=== PATIENT | male | born 1955 | race Two or more races ===

== ENCOUNTER 2016-07-16 17:24 | Inpatient (IN) | payer MEDICAID ==
[~2016-07-16] VITALS: Ht 177.8 cm; Wt 129.3 kg
[~2016-07-16 17:24] MED LIST: ASPI-247 PO; BACL10TA PO; BENA10TA3 PO; CAR3125T PO; CHOL20009 PO; GABA-521 PO; GLIP-115 PO; ISOS60TA PO; METF-489 PO; NITR0.4S31 SL; NOR10T PO; OMEP20TA85 PO; OYST500T28 PO; PRAS10TA6 PO; PRAVASTATIN PO; SPIR25TA89 PO; lantus SC
[2016-07-16 18:07] LABS: Basophils # (auto) 0 uL; Basophils % (auto) 0.3 % (0.0-2.0); Eosinophils # (auto) 0 uL; Eosinophils % (auto) 0.5 % (0.0-7.0); Hematocrit 42.5 % (41.0-53.0); Hemoglobin 14.2 g/dL (13.5-17.5); Lymphocytes # (auto) 2.2 uL; Lymphocytes % (auto) 23.7 % (10.0-50.0); Mean Corpuscular Hemoglobin 29.1 pg (28.0-32.0); Mean Corpuscular Hgb Conc. 33.4 g/dL (32.0-36.0); Mean Corpuscular Volume 87.3 fL (80.0-100.0); Mean Platelet Volume 6.7 fL (7.4-10.4); Monocytes # (auto) 0.5 uL; Monocytes % (auto) 5.8 % (0.0-12.0); Neutrophils # (auto) 6.5 uL; Neutrophils % (auto) 69.7 % (37.0-80.0); Platelet Count (auto) 379 10^3/uL (140-450); Red Cell Distribution Width 15.6 % (11.6-16.0); White Blood Cell 9.3 10^3/uL (4.4-10.8)
[2016-07-16 18:23] LABS: Albumin 3.5 g/dL (3.4-5.0); Anion Gap 12 (5-15); BUN/Creatinine Ratio 14.8; Blood Urea Nitrogen 13 mg/dL (7-18); Calcium 8.9 mg/dL (8.5-10.1); Carbon Dioxide 21 mmol/L (21-32); Chloride 103 mmol/L (98-107); GFR African American 112 mL/min; GFR Non-African American 93 mL/min; Glucose 251 mg/dL (74-106); Magnesium 1.9 mg/dL (1.6-2.6); Sodium 136 mmol/L (136-145)
[2016-07-16 18:53] LABS: Alkaline Phosphatase 66 U/L (45-117); Aspartate Aminotransferase 6 U/L (15-37); Bilirubin, Total 0.6 mg/dL (0.2-1.0); Total Protein 8.1 g/dL (6.4-8.2)
[2016-07-16] MEDS ORDERED: ONDANSETRON HCL 4 MG/2 ML VIAL IV ONE (20:00)
[2016-07-16] MEDS ORDERED: HYDROmorphone HCL 2 MG/ML VL IV ONE ×2 (20:00→21:30)
[2016-07-16 20:16] LABS: INR 1.07 (0.9-1.15)
[2016-07-16] MEDS ORDERED: FUROSEMIDE 20 MG/2 ML VIAL IV ONE (22:00)
[2016-07-16 22:12] LABS: BUN/Creatinine Ratio 18.6; Calcium 8.6 mg/dL (8.5-10.1); Potassium 3.9 mmol/L (3.5-5.1)
[2016-07-16 22:43] LABS: B-Type Natriuretic Peptide 39.65 pg/mL (0-100); Temperature: 22.7 C (20.0-25.0)
[2016-07-17] VITALS (7 sets, daily range): BP systolic 102–128; BP diastolic 66–74
[2016-07-17] MEDS ORDERED: MORPHINE SULF INJ 2 MG/ML SYRINGE 1ML IV PRN ×2 (00:15→13:00)
[2016-07-17] MEDS ORDERED: ACETAMINOPHEN 325 MG TAB PO PRN (00:15)
[2016-07-17] MEDS ORDERED: DEXTROSE (50%) 50ML SYRG IV PRN (00:15)
[2016-07-17] MEDS ORDERED: NITROGLYCERIN 0.4 MG SL TAB SL PRN (00:15)
[2016-07-17] MEDS ORDERED: ONDANSETRON HCL 4 MG/2 ML VIAL IV PRN (00:15)
[2016-07-17] MEDS ORDERED: IOHEXOL 350 MG/ML 100ML IJ ONE (00:19)
[2016-07-17] MEDS: HYDROcodone-ACET 5/325MG TAB PO PRN ×3 (01:42→12:39)
[2016-07-17] MEDS ORDERED: ENOXAPARIN SOD 150 MG/1 ML SYRINGE SC SCH (03:00)
[2016-07-17] MEDS: GABAPENTIN 300 MG CAP PO SCH ×3 (05:44→21:27)
[2016-07-17] MEDS: ACCU-CHEK COMFORT CURVE STRIP VI SCH ×3 (05:44→18:00)
[2016-07-17] MEDS: InsuLIN REG 1unit/0.01ml Soln (100units/ml) SC SCH ×3 (05:45→17:43)
[2016-07-17 08:42] LABS: Urine Color Yellow (Yellow)
[2016-07-17 08:43] LABS: Urine Bilirubin Negative (Negative); Urine Blood Negative /uL (Negative); Urine Glucose 4+ mg/dL (Normal); Urine Ketone Negative (Negative); Urine Nitrite Negative (Negative); Urine Urobilinogen Normal (Negative); Urine pH 5.5 (5.0-8.0)
[2016-07-17 08:53] LABS: Urine RBC 0-1 /hpf (0 - 3); Urine Squamous Epithelial Cell FEW /hpf (<5)
[2016-07-17] MEDS ORDERED: EFFIENT 10 MG PO SCH (10:00)
[2016-07-17] MEDS ORDERED: ENOXAPARIN SOD 40 MG/0.4 ML SYRINGE SC SCH (10:00)
[2016-07-17] MEDS ORDERED: FAMOTIDINE 20 MG TAB PO SCH (10:00)
[2016-07-17] MEDS ORDERED: ASPirin 81 mg TAB PO SCH (10:00)
[2016-07-17] MEDS: SPIRONOLACTONE 25 MG TAB PO SCH (10:25)
[2016-07-17] MEDS: CARVEDILOL 3.125 MG TAB PO SCH ×2 (10:26→21:31)
[2016-07-17] MEDS: PRASUGREL HCL 10 MG TAB PO SCH (10:27)
[2016-07-17] MEDS: ISOSORBIDE MONONITRATE 60 MG TAB PO SCH (10:27)
[2016-07-17] MEDS: BENAZEPRIL HCL 10 MG TAB PO SCH (10:29)
[2016-07-17 12:31] LABS: Basophils # (auto) 0 uL; Basophils % (auto) 0.3 % (0.0-2.0); Eosinophils # (auto) 0.1 uL; Hematocrit 38.7 % (41.0-53.0); Lymphocytes # (auto) 2.2 uL; Lymphocytes % (auto) 29.9 % (10.0-50.0); Mean Corpuscular Hemoglobin 29.3 pg (28.0-32.0); Mean Corpuscular Hgb Conc. 33.7 g/dL (32.0-36.0); Mean Platelet Volume 6.9 fL (7.4-10.4); Monocytes # (auto) 0.7 uL; Monocytes % (auto) 8.9 % (0.0-12.0); Neutrophils # (auto) 4.4 uL; Neutrophils % (auto) 59.9 % (37.0-80.0); Platelet Count (auto) 329 10^3/uL (140-450); Red Cell Distribution Width 15.6 % (11.6-16.0); White Blood Cell 7.3 10^3/uL (4.4-10.8)
[2016-07-17 12:59] LABS: BUN/Creatinine Ratio 19.4; Calcium 8.4 mg/dL (8.5-10.1); Phosphorus 2.8 mg/dL (2.5-4.90); Potassium 3.8 mmol/L (3.5-5.1)
[2016-07-17] MEDS: HYDROmorphone HCL 2 MG/ML VL IV PRN ×2 (14:41→20:23)
[2016-07-17] MEDS: PRAVASTATIN SODIUM 20 MG TAB PO SCH (21:32)
[2016-07-17] MEDS: DABIGATRAN 75 MG CAP PO SCH (21:37)
[2016-07-17] MEDS ORDERED: INSULIN DETEMIR(LEVEMIR) 1unit/0.01ml Soln (100units/ml) SC SCH (22:00)
[2016-07-18] MEDS: ACCU-CHEK COMFORT CURVE STRIP VI SCH ×4 (00:05→18:01)
[2016-07-18] MEDS: HYDROcodone-ACET 5/325MG TAB PO PRN (00:17)
[2016-07-18] MEDS: InsuLIN REG 1unit/0.01ml Soln (100units/ml) SC SCH ×4 (00:27→18:02)
[2016-07-18] MEDS: HYDROmorphone HCL 2 MG/ML VL IV PRN ×5 (03:36→22:15)
[2016-07-18] MEDS: GABAPENTIN 300 MG CAP PO SCH ×3 (05:38→22:25)
[2016-07-18 05:45] LABS: Basophils # (auto) 0 uL; Basophils % (auto) 0.3 % (0.0-2.0); Eosinophils # (auto) 0.1 uL; Eosinophils % (auto) 1.6 % (0.0-7.0); Hematocrit 38.2 % (41.0-53.0); Hemoglobin 12.7 g/dL (13.5-17.5); Lymphocytes # (auto) 2.5 uL; Lymphocytes % (auto) 32.8 % (10.0-50.0); Mean Corpuscular Hemoglobin 29.1 pg (28.0-32.0); Mean Corpuscular Hgb Conc. 33.4 g/dL (32.0-36.0); Mean Corpuscular Volume 87.2 fL (80.0-100.0); Mean Platelet Volume 6.8 fL (7.4-10.4); Monocytes # (auto) 0.8 uL; Monocytes % (auto) 10.2 % (0.0-12.0); Neutrophils # (auto) 4.2 uL; Neutrophils % (auto) 55.1 % (37.0-80.0); Platelet Count (auto) 332 10^3/uL (140-450); Red Cell Distribution Width 15.3 % (11.6-16.0); White Blood Cell 7.6 10^3/uL (4.4-10.8)
[2016-07-18 05:49] VITALS: BP 101/70
[2016-07-18 06:14] LABS: Albumin 3.1 g/dL (3.4-5.0); BUN/Creatinine Ratio 22.1; Bilirubin, Total 0.6 mg/dL (0.2-1.0); Calcium 8.8 mg/dL (8.5-10.1); Magnesium 1.9 mg/dL (1.6-2.6); Potassium 3.9 mmol/L (3.5-5.1); Total Protein 7.3 g/dL (6.4-8.2)
[2016-07-18 09:00] VITALS: BP 130/91
[2016-07-18] MEDS: BENAZEPRIL HCL 10 MG TAB PO SCH (09:29)
[2016-07-18] MEDS: CARVEDILOL 3.125 MG TAB PO SCH ×2 (09:30→22:25)
[2016-07-18] MEDS: ASPirin-EC 81 mg tab PO SCH (09:30)
[2016-07-18] MEDS: SPIRONOLACTONE 25 MG TAB PO SCH (09:30)
[2016-07-18] MEDS: PRASUGREL HCL 10 MG TAB PO SCH (09:31)
[2016-07-18] MEDS: PANTOPRAZOLE 40 MG TAB PO SCH (09:31)
[2016-07-18] MEDS: ISOSORBIDE MONONITRATE 60 MG TAB PO SCH (09:31)
[2016-07-18] MEDS: DABIGATRAN 75 MG CAP PO SCH ×2 (09:47→22:26)
[2016-07-18 13:00] VITALS: BP 126/68
[2016-07-18 17:00] VITALS: BP 124/59
[2016-07-18 22:00] VITALS: BP 134/81
[2016-07-18 22:03] VITALS: BP 134/81
[2016-07-18] MEDS: PRAVASTATIN SODIUM 20 MG TAB PO SCH (22:25)
[2016-07-18] MEDS: INSULIN DETEMIR(LEVEMIR) 1unit/0.01ml Soln (100units/ml) SC SCH (22:26)
[2016-07-19] MEDS: ACCU-CHEK COMFORT CURVE STRIP VI SCH ×4 (00:15→18:12)
[2016-07-19] MEDS: InsuLIN REG 1unit/0.01ml Soln (100units/ml) SC SCH ×4 (00:17→18:12)
[2016-07-19] MEDS: HYDROmorphone HCL 2 MG/ML VL IV PRN ×6 (02:05→22:50)
[2016-07-19] MEDS: HYDROcodone-ACET 5/325MG TAB PO PRN (02:26)
[2016-07-19 05:00] VITALS: BP 111/68
[2016-07-19] MEDS: GABAPENTIN 300 MG CAP PO SCH ×3 (06:13→22:11)
[2016-07-19] MEDS: SPIRONOLACTONE 25 MG TAB PO SCH (08:58)
[2016-07-19] MEDS: CARVEDILOL 3.125 MG TAB PO SCH ×2 (08:58→22:17)
[2016-07-19] MEDS: ISOSORBIDE MONONITRATE 60 MG TAB PO SCH (08:58)
[2016-07-19] MEDS: ASPirin-EC 81 mg tab PO SCH (08:58)
[2016-07-19] MEDS: BENAZEPRIL HCL 10 MG TAB PO SCH (08:59)
[2016-07-19] MEDS: PANTOPRAZOLE 40 MG TAB PO SCH (09:00)
[2016-07-19] MEDS: DABIGATRAN 75 MG CAP PO SCH ×2 (09:15→22:11)
[2016-07-19] MEDS: PRASUGREL HCL 10 MG TAB PO SCH (09:15)
[2016-07-19 13:06] VITALS: BP 115/68
[2016-07-19 16:58] VITALS: BP 132/80
[2016-07-19 22:00] VITALS: BP 116/72
[2016-07-19] MEDS: DOCUSATE SOD 100 MG CAP PO SCH (22:11)
[2016-07-19] MEDS: PRAVASTATIN SODIUM 20 MG TAB PO SCH (22:11)
[2016-07-19] MEDS: INSULIN DETEMIR(LEVEMIR) 1unit/0.01ml Soln (100units/ml) SC SCH (22:27)
[2016-07-20] MEDS: ACCU-CHEK COMFORT CURVE STRIP VI SCH ×5 (00:06→23:40)
[2016-07-20] MEDS: InsuLIN REG 1unit/0.01ml Soln (100units/ml) SC SCH ×5 (00:15→23:58)
[2016-07-20] MEDS: HYDROmorphone HCL 2 MG/ML VL IV PRN ×6 (02:19→21:06)
[2016-07-20 05:10] VITALS: BP 117/69
[2016-07-20] MEDS: GABAPENTIN 300 MG CAP PO SCH ×3 (06:19→22:19)
[2016-07-20 09:00] VITALS: BP 142/69
[2016-07-20] MEDS: ISOSORBIDE MONONITRATE 60 MG TAB PO SCH (10:01)
[2016-07-20] MEDS: SPIRONOLACTONE 25 MG TAB PO SCH (10:01)
[2016-07-20] MEDS: CARVEDILOL 3.125 MG TAB PO SCH ×2 (10:02→22:18)
[2016-07-20] MEDS: DOCUSATE SOD 100 MG CAP PO SCH ×2 (10:02→22:18)
[2016-07-20] MEDS: ASPirin-EC 81 mg tab PO SCH (10:02)
[2016-07-20] MEDS: PANTOPRAZOLE 40 MG TAB PO SCH (10:03)
[2016-07-20] MEDS: DABIGATRAN 75 MG CAP PO SCH (10:03)
[2016-07-20] MEDS: BENAZEPRIL HCL 10 MG TAB PO SCH (10:04)
[2016-07-20] MEDS: PRASUGREL HCL 10 MG TAB PO SCH (10:11)
[2016-07-20] MEDS: HYDROcodone-ACET 5/325MG TAB PO PRN ×2 (11:58→23:46)
[2016-07-20 12:00] VITALS: BP 102/57
[2016-07-20 17:00] VITALS: BP 114/55
[2016-07-20 20:00] VITALS: BP 127/64
[2016-07-20 22:00] VITALS: BP 127/64
[2016-07-20] MEDS ORDERED: DABIGATRAN 75 MG CAP PO SCH (22:00)
[2016-07-20] MEDS: INSULIN DETEMIR(LEVEMIR) 1unit/0.01ml Soln (100units/ml) SC SCH (22:00)
[2016-07-20] MEDS: PRAVASTATIN SODIUM 20 MG TAB PO SCH (22:19)
[2016-07-21 05:00] VITALS: BP 123/61
[2016-07-21] MEDS: HYDROmorphone HCL 2 MG/ML VL IV PRN ×6 (05:50→22:02)
[2016-07-21] MEDS: ACCU-CHEK COMFORT CURVE STRIP VI SCH ×4 (05:52→23:17)
[2016-07-21] MEDS: InsuLIN REG 1unit/0.01ml Soln (100units/ml) SC SCH ×4 (05:52→23:17)
[2016-07-21] MEDS: GABAPENTIN 300 MG CAP PO SCH ×3 (05:55→22:01)
[2016-07-21 06:07] LABS: Basophils # (auto) 0 uL; Basophils % (auto) 0.4 % (0.0-2.0); Eosinophils # (auto) 0.1 uL; Eosinophils % (auto) 2.2 % (0.0-7.0); Hematocrit 36.8 % (41.0-53.0); Hemoglobin 12.4 g/dL (13.5-17.5); Mean Corpuscular Hemoglobin 29.2 pg (28.0-32.0); Mean Corpuscular Hgb Conc. 33.8 g/dL (32.0-36.0); Mean Corpuscular Volume 86.5 fL (80.0-100.0); Mean Platelet Volume 6.4 fL (7.4-10.4); Monocytes # (auto) 0.7 uL; Monocytes % (auto) 10.4 % (0.0-12.0); Neutrophils # (auto) 3.8 uL; Platelet Count (auto) 380 10^3/uL (140-450); Red Cell Distribution Width 15.4 % (11.6-16.0); White Blood Cell 6.6 10^3/uL (4.4-10.8)
[2016-07-21 06:31] LABS: Albumin 3.1 g/dL (3.4-5.0); BUN/Creatinine Ratio 12.3; Calcium 8.5 mg/dL (8.5-10.1); Potassium 3.6 mmol/L (3.5-5.1)
[2016-07-21 06:34] LABS: Bilirubin, Total 0.5 mg/dL (0.2-1.0); Total Protein 7.3 g/dL (6.4-8.2)
[2016-07-21 09:00] VITALS: BP 127/75
[2016-07-21] MEDS: DOCUSATE SOD 100 MG CAP PO SCH ×2 (09:27→22:01)
[2016-07-21] MEDS: ASPirin-EC 81 mg tab PO SCH (09:27)
[2016-07-21] MEDS: PANTOPRAZOLE 40 MG TAB PO SCH (09:28)
[2016-07-21] MEDS: SPIRONOLACTONE 25 MG TAB PO SCH (09:28)
[2016-07-21] MEDS: ISOSORBIDE MONONITRATE 60 MG TAB PO SCH (09:29)
[2016-07-21] MEDS: CARVEDILOL 3.125 MG TAB PO SCH ×2 (09:29→22:01)
[2016-07-21] MEDS: BENAZEPRIL HCL 10 MG TAB PO SCH (09:30)
[2016-07-21] MEDS ORDERED: PRASUGREL HCL 10 MG TAB PO SCH (10:00)
[2016-07-21 13:00] VITALS: BP 134/65
[2016-07-21] MEDS ORDERED: RIVAROXABAN 15 MG TAB PO ONE ×2 (14:30→22:00)
[2016-07-21 17:30] VITALS: BP 99/41
[2016-07-21] MEDS: glipiZIDE 5 MG TAB PO SCH (18:05)
[2016-07-21 22:00] VITALS: BP_SYST 109; BP_SYST 140; BP_DIAS 56; BP_DIAS 75
[2016-07-21] MEDS ORDERED: PATIENTS OWN MEDICATION (XARELTO 15 MG) PO SCH (22:00)
[2016-07-21] MEDS: RIVAROXABAN 15 MG TAB PO SCH (22:02)
[2016-07-21] MEDS: PRAVASTATIN SODIUM 20 MG TAB PO SCH (22:02)
[2016-07-21] MEDS: INSULIN DETEMIR(LEVEMIR) 1unit/0.01ml Soln (100units/ml) SC SCH (22:14)
[2016-07-22] MEDS: HYDROmorphone HCL 2 MG/ML VL IV PRN ×6 (04:18→21:36)
[2016-07-22 05:00] VITALS: BP 102/61
[2016-07-22] MEDS: InsuLIN REG 1unit/0.01ml Soln (100units/ml) SC SCH ×4 (06:00→23:04)
[2016-07-22] MEDS: GABAPENTIN 300 MG CAP PO SCH ×3 (06:10→21:35)
[2016-07-22] MEDS: ACCU-CHEK COMFORT CURVE STRIP VI SCH ×4 (06:11→23:04)
[2016-07-22] MEDS: glipiZIDE 5 MG TAB PO SCH ×2 (06:11→17:56)
[2016-07-22 07:30] VITALS: BP 154/98
[2016-07-22 08:21] VITALS: BP 134/76
[2016-07-22] MEDS: RIVAROXABAN 15 MG TAB PO SCH ×2 (09:03→21:35)
[2016-07-22] MEDS: SPIRONOLACTONE 25 MG TAB PO SCH (09:03)
[2016-07-22] MEDS: CARVEDILOL 3.125 MG TAB PO SCH ×2 (09:04→21:35)
[2016-07-22] MEDS: PANTOPRAZOLE 40 MG TAB PO SCH (09:04)
[2016-07-22] MEDS: ASPirin-EC 81 mg tab PO SCH (09:04)
[2016-07-22] MEDS: BENAZEPRIL HCL 10 MG TAB PO SCH (09:05)
[2016-07-22] MEDS: DOCUSATE SOD 100 MG CAP PO SCH ×2 (09:05→21:34)
[2016-07-22] MEDS: ISOSORBIDE MONONITRATE 60 MG TAB PO SCH (09:05)
[2016-07-22 12:35] VITALS: BP 154/98
[2016-07-22 16:43] VITALS: BP 126/78
[2016-07-22] MEDS: PRAVASTATIN SODIUM 20 MG TAB PO SCH (21:35)
[2016-07-22 22:00] VITALS: BP 118/59
[2016-07-22] MEDS: INSULIN DETEMIR(LEVEMIR) 1unit/0.01ml Soln (100units/ml) SC SCH (22:00)
[2016-07-23] MEDS: HYDROmorphone HCL 2 MG/ML VL IV PRN (04:35)
[2016-07-23 05:00] VITALS: BP 113/66
[2016-07-23] MEDS: ACCU-CHEK COMFORT CURVE STRIP VI SCH (06:00)
[2016-07-23] MEDS: InsuLIN REG 1unit/0.01ml Soln (100units/ml) SC SCH (06:00)
[2016-07-23] MEDS: glipiZIDE 5 MG TAB PO SCH (06:28)
[2016-07-23] MEDS: GABAPENTIN 300 MG CAP PO SCH (06:28)
[2016-07-23 08:37] VITALS: BP 107/73
[2016-07-23 08:55] VITALS: BP 107/73
[2016-07-23] MEDS: PANTOPRAZOLE 40 MG TAB PO SCH (09:45)
[2016-07-23] MEDS: ASPirin-EC 81 mg tab PO SCH (09:45)
[2016-07-23] MEDS: ISOSORBIDE MONONITRATE 60 MG TAB PO SCH (09:45)
[2016-07-23] MEDS: RIVAROXABAN 15 MG TAB PO SCH (09:45)
[2016-07-23] MEDS: DOCUSATE SOD 100 MG CAP PO SCH (09:46)
[2016-07-23] MEDS: SPIRONOLACTONE 25 MG TAB PO SCH (09:46)
[2016-07-23] MEDS: CARVEDILOL 3.125 MG TAB PO SCH (09:46)
[2016-07-23] MEDS: BENAZEPRIL HCL 10 MG TAB PO SCH (09:47)
== END 2016-07-23 10:11 | disposition home or self-care (01) | DRG 134 ==
LOC: EDUNIT# 17:24 → ER 17:26 → TELE 17:27 → TELE-WESTW 07-17 01:25
PROVIDERS: ADMIT Nurse Practitioner; ATTEND Internal Medicine
DX: I26.99 Other pulmonary embolism without acute cor pulmonale (principal); E11.42 Type 2 diabetes mellitus with diabetic polyneuropathy; D68.59 Other primary thrombophilia; I50.9 Heart failure, unspecified; I11.0 Hypertensive heart disease with heart failure; E11.65 Type 2 diabetes mellitus with hyperglycemia; Z68.41 Body mass index [BMI] 40.0-44.9, adult; E66.01 Morbid (severe) obesity due to excess calories; D64.9 Anemia, unspecified; R51 Headache; I25.5 Ischemic cardiomyopathy; F11.20 Opioid dependence, uncomplicated; E27.9 Disorder of adrenal gland, unspecified; R04.0 Epistaxis; M54.9 Dorsalgia, unspecified; G89.29 Other chronic pain; N50.89 Other specified disorders of the male genital organs; M19.90 Unspecified osteoarthritis, unspecified site; I25.10 Atherosclerotic heart disease of native coronary artery without angina pectoris; E78.5 Hyperlipidemia, unspecified; Z95.1 Presence of aortocoronary bypass graft; Z81.1 Family history of alcohol abuse and dependence; Z80.8 Family history of malignant neoplasm of other organs or systems; Z82.49 Family history of ischemic heart disease and other diseases of the circulatory system; I25.2 Old myocardial infarction; Z88.1 Allergy status to other antibiotic agents; Z88.8 Allergy status to other drugs, medicaments and biological substances; Z87.11 Personal history of peptic ulcer disease; Z79.82 Long term (current) use of aspirin; Z79.84 Long term (current) use of oral hypoglycemic drugs; Z79.4 Long term (current) use of insulin; Z79.899 Other long term (current) drug therapy; Z87.891 Personal history of nicotine dependence; Z95.5 Presence of coronary angioplasty implant and graft; Z80.3 Family history of malignant neoplasm of breast; Z83.3 Family history of diabetes mellitus; Z80.0 Family history of malignant neoplasm of digestive organs
CPT/HCPCS: 36415; 70450; 71010; 71275; 72125; 76870; 80048; 80053; 80061; 81001; 82962; 83036; 83735; 83880; 84100; 84443; 84484; 85025; 85379; 85610; 87081; 93005; 93306; 93970; 94761; 96374; 96375; 96376; J1815; J2405

== ENCOUNTER 2016-10-24 10:40 | Inpatient (IN) | payer MEDICAID ==
[~2016-10-24] VITALS: Ht 30.5 cm; Wt 131.7 kg
[2016-10-24 11:24] LABS: Basophils # (auto) 0 uL; Basophils % (auto) 0.2 % (0.0-2.0); Eosinophils # (auto) 0.1 uL; Eosinophils % (auto) 1.3 % (0.0-7.0); Hematocrit 41.3 % (41.0-53.0); Hemoglobin 14.2 g/dL (13.5-17.5); Lymphocytes % (auto) 31.4 % (10.0-50.0); Mean Corpuscular Hemoglobin 29.1 pg (28.0-32.0); Mean Corpuscular Hgb Conc. 34.3 g/dL (32.0-36.0); Monocytes # (auto) 0.5 uL; Monocytes % (auto) 7.2 % (0.0-12.0); Neutrophils # (auto) 3.9 uL; Neutrophils % (auto) 59.9 % (37.0-80.0); Platelet Count (auto) 285 10^3/uL (140-450); Red Cell Distribution Width 15.5 % (11.6-16.0); White Blood Cell 6.5 10^3/uL (4.4-10.8)
[2016-10-24 12:04] LABS: Albumin 3.6 g/dL (3.4-5.0); Alkaline Phosphatase 61 U/L (45-117); Anion Gap 9 (5-15); Aspartate Aminotransferase 15 U/L (15-37); BUN/Creatinine Ratio 14.9; Bilirubin, Total 0.4 mg/dL (0.2-1.0); Blood Urea Nitrogen 13 mg/dL (7-18); Calcium 8.7 mg/dL (8.5-10.1); Carbon Dioxide 22 mmol/L (21-32); Chloride 107 mmol/L (98-107); GFR African American 114 mL/min; GFR Non-African American 94 mL/min; Glucose 267 mg/dL (74-106); Magnesium 1.8 mg/dL (1.6-2.6); Potassium 3.9 mmol/L (3.5-5.1); Sodium 138 mmol/L (136-145); Total Protein 7.9 g/dL (6.4-8.2)
[2016-10-24] MEDS ORDERED: ASPirin 81 mg TAB PO ONE (15:45)
[2016-10-24] MEDS ORDERED: MORPHINE SULF INJ 2 MG/ML SYRINGE 1ML IV ONE (15:45)
[2016-10-24] MEDS ORDERED: ONDANSETRON HCL 4 MG/2 ML VIAL IV ONE (15:45)
[2016-10-24] MEDS ORDERED: DEXTROSE (50%) 50ML SYRG IV PRN (16:15)
[2016-10-24] MEDS ORDERED: PROMETHAZINE HCL 25 MG/ML 1ML IV PRN (16:15)
[2016-10-24] MEDS ORDERED: BACLOFEN 10 MG TAB PO PRN (16:15)
[2016-10-24] MEDS ORDERED: TEMAZEPAM 15 MG CAP PO PRN (16:15)
[2016-10-24] MEDS ORDERED: ACETAMINOPHEN 500 MG TAB PO PRN (16:15)
[2016-10-24] MEDS ORDERED: LORazepam 0.5 MG TAB PO PRN (16:15)
[2016-10-24] MEDS ORDERED: MORPHINE SULF INJ 2 MG/ML SYRINGE 1ML IV PRN (16:15)
[2016-10-24] MEDS ORDERED: NITROGLYCERIN 0.4 MG SL TAB SL PRN (16:15)
[2016-10-24 17:04] LABS: B-Type Natriuretic Peptide 49.92 pg/mL (0-100)
[2016-10-24] MEDS ORDERED: ISOSORBIDE MONONITRATE 60 MG TAB PO ONE (17:15)
[2016-10-24] MEDS ORDERED: PRASUGREL HCL 10 MG TAB PO ONE (17:15)
[2016-10-24] MEDS ORDERED: PANTOPRAZOLE 40 MG TAB PO ONE (17:15)
[2016-10-24] MEDS ORDERED: SPIRONOLACTONE 25 MG TAB PO ONE (17:15)
[2016-10-24 17:18] LABS: Temperature: 24.1 C (20.0-25.0)
[2016-10-24 18:04] LABS: INR 0.96 (0.9-1.15); Partial Thromboplastin Time 24.5 sec (22.64-33.71); Prothrombin Time 10.5 sec (9.37-12.3)
[2016-10-24] MEDS: ACCU-CHEK COMFORT CURVE STRIP VI SCH ×2 (20:05→22:34)
[2016-10-24] MEDS: SODIUM CHLORIDE 0.9% 1,000 ML IV SCH (20:05)
[2016-10-24] MEDS: ENOXAPARIN SOD 40 MG/0.4 ML SYRINGE SC SCH (20:05)
[2016-10-24] MEDS: InsuLIN REG 1unit/0.01ml Soln (100units/ml) SC SCH ×2 (20:05→22:49)
[2016-10-24] MEDS: MORPHINE SULF INJ 2 MG/ML SYRINGE 1ML IV PRN (20:05)
[2016-10-24 21:20] VITALS: BP 110/51
[2016-10-24] MEDS ORDERED: [UNRECOGNIZED DRUG - OTHER] SC SCH (22:00)
[2016-10-24] MEDS: CALCIUM OYSTER PO SCH (22:00)
[2016-10-24] MEDS: CARVEDILOL 3.125 MG TAB PO SCH (22:00)
[2016-10-24] MEDS ORDERED: INSULIN GLARGINE SC SCH (22:00)
[2016-10-24 22:31] VITALS: BP 110/59
[2016-10-24] MEDS: GABAPENTIN 300 MG CAP PO SCH (22:32)
[2016-10-24] MEDS: PRAVASTATIN SODIUM 20 MG TAB PO SCH (22:32)
[2016-10-24] MEDS: HYDROcodone-ACET 10/325MG TAB PO SCH (22:34)
[2016-10-24] MEDS: CHOLECALCIFEROL (VITD3) 1,000 UNIT TAB PO SCH (22:34)
[2016-10-24] MEDS ORDERED: BACL10TA PO (23:15)
[2016-10-24] MEDS ORDERED: CHOL500021 PO (23:17)
[2016-10-24] MEDS ORDERED: CHOL20007 PO (23:18)
[2016-10-24] MEDS ORDERED: GABA-339 PO (23:34)
[2016-10-24] MEDS ORDERED: GLIP-115 PO (23:35)
[2016-10-24] MEDS ORDERED: NOR5T PO (23:37)
[2016-10-24] MEDS ORDERED: OME20T PO (23:39)
[2016-10-24] MEDS ORDERED: INSLANTI SC (23:41)
[2016-10-25] MEDS: MORPHINE SULF INJ 2 MG/ML SYRINGE 1ML IV PRN ×3 (00:21→13:07)
[2016-10-25] MEDS: SODIUM CHLORIDE 0.9% 1,000 ML IV SCH ×2 (02:07→12:07)
[2016-10-25 05:43] VITALS: BP 102/47
[2016-10-25] MEDS: HYDROcodone-ACET 10/325MG TAB PO SCH ×2 (06:21→10:18)
[2016-10-25] MEDS: CHOLECALCIFEROL (VITD3) 1,000 UNIT TAB PO SCH ×3 (06:21→21:26)
[2016-10-25] MEDS: GABAPENTIN 300 MG CAP PO SCH ×2 (06:21→13:07)
[2016-10-25] MEDS: ACCU-CHEK COMFORT CURVE STRIP VI SCH ×4 (06:27→22:02)
[2016-10-25] MEDS: InsuLIN REG 1unit/0.01ml Soln (100units/ml) SC SCH ×4 (06:28→22:04)
[2016-10-25 08:55] VITALS: BP 101/59
[2016-10-25] MEDS ORDERED: glipiZIDE 5 MG TAB PO SCH (10:00)
[2016-10-25] MEDS ORDERED: SPIRONOLACTONE 25 MG TAB PO SCH (10:00)
[2016-10-25] MEDS: ISOSORBIDE MONONITRATE 60 MG TAB PO SCH (10:00)
[2016-10-25] MEDS: CARVEDILOL 3.125 MG TAB PO SCH ×2 (10:00→21:27)
[2016-10-25] MEDS: CALCIUM OYSTER PO SCH (10:00)
[2016-10-25] MEDS: PRASUGREL HCL 10 MG TAB PO SCH (10:15)
[2016-10-25] MEDS: ASPirin 325 MG TAB PO SCH (10:17)
[2016-10-25] MEDS: PANTOPRAZOLE 40 MG TAB PO SCH (10:18)
[2016-10-25 12:44] VITALS: BP 106/59
[2016-10-25] MEDS ORDERED: BENA10TA3 PO (13:18)
[2016-10-25] MEDS ORDERED: IBUP600T27 PO (13:22)
[2016-10-25] MEDS ORDERED: FENO54TA4 PO (13:22)
[2016-10-25] MEDS ORDERED: TAMS0.4C36 PO (13:22)
[2016-10-25] MEDS ORDERED: SITA50TA PO (13:22)
[2016-10-25] MEDS ORDERED: MORP30TA PO (13:22)
[2016-10-25] MEDS ORDERED: LIDO5DIS21 TOP (13:22)
[2016-10-25 16:38] VITALS: BP_SYST 101; BP_SYST 106; BP_DIAS 58; BP_DIAS 70
[2016-10-25] MEDS: TAMSULOSIN HYDROCHLORIDE 0.4 MG CAP PO SCH (17:31)
[2016-10-25] MEDS: metFORMIN HYDROCHLORIDE 500 MG TAB PO SCH (17:33)
[2016-10-25] MEDS: ENOXAPARIN SOD 40 MG/0.4 ML SYRINGE SC SCH (17:34)
[2016-10-25] MEDS ORDERED: HYDROcodone-ACET 10/325MG TAB PO PRN (18:00)
[2016-10-25 20:00] VITALS: BP 102/66
[2016-10-25] MEDS: PRAVASTATIN SODIUM 20 MG TAB PO SCH (21:26)
[2016-10-25] MEDS: CALCIUM W/VIT D (600MG/400IU) TAB PO SCH (21:26)
[2016-10-25] MEDS: GABAPENTIN 400 MG CAP PO SCH (21:26)
[2016-10-25] MEDS: MORPHINE SULF 30 mg ER tab PO SCH (21:27)
[2016-10-25 21:40] VITALS: BP 102/66
[2016-10-25] MEDS: INSULIN DETEMIR(LEVEMIR) 1unit/0.01ml Soln (100units/ml) SC SCH (22:02)
[2016-10-26] MEDS: SODIUM CHLORIDE 0.9% 1,000 ML IV SCH ×3 (00:09→18:07)
[2016-10-26 04:40] VITALS: BP 113/67
[2016-10-26] MEDS: MORPHINE SULF INJ 2 MG/ML SYRINGE 1ML IV PRN ×2 (05:47→13:19)
[2016-10-26] MEDS: ACCU-CHEK COMFORT CURVE STRIP VI SCH ×3 (05:48→17:00)
[2016-10-26] MEDS: CHOLECALCIFEROL (VITD3) 1,000 UNIT TAB PO SCH ×2 (05:48→13:14)
[2016-10-26] MEDS: GABAPENTIN 400 MG CAP PO SCH ×2 (05:48→13:14)
[2016-10-26] MEDS: InsuLIN REG 1unit/0.01ml Soln (100units/ml) SC SCH ×3 (06:21→17:00)
[2016-10-26] MEDS: metFORMIN HYDROCHLORIDE 500 MG TAB PO SCH ×2 (08:00→18:00)
[2016-10-26] MEDS ORDERED: glipiZIDE 5 MG TAB PO SCH (08:00)
[2016-10-26] MEDS ORDERED: ADENOSINE 111 MG in GIVE UN-DILUTED 0 ML IV ONE (08:15)
[2016-10-26 09:00] VITALS: BP 117/77
[2016-10-26] MEDS: CARVEDILOL 3.125 MG TAB PO SCH (10:00)
[2016-10-26] MEDS: ISOSORBIDE MONONITRATE 60 MG TAB PO SCH (10:00)
[2016-10-26] MEDS: ASPirin 325 MG TAB PO SCH (10:00)
[2016-10-26] MEDS: MORPHINE SULF 30 mg ER tab PO SCH (10:32)
[2016-10-26] MEDS: PANTOPRAZOLE 40 MG TAB PO SCH (10:32)
[2016-10-26] MEDS: CALCIUM W/VIT D (600MG/400IU) TAB PO SCH (10:32)
[2016-10-26] MEDS: PRASUGREL HCL 10 MG TAB PO SCH (10:32)
[2016-10-26] MEDS: INSULIN DETEMIR(LEVEMIR) 1unit/0.01ml Soln (100units/ml) SC SCH (10:37)
[2016-10-26 13:00] VITALS: BP 132/79
[2016-10-26 16:29] VITALS: BP 132/79
[2016-10-26 17:00] VITALS: BP 130/64
[2016-10-26] MEDS: ENOXAPARIN SOD 40 MG/0.4 ML SYRINGE SC SCH (17:00)
[2016-10-26] MEDS: TAMSULOSIN HYDROCHLORIDE 0.4 MG CAP PO SCH (18:00)
== END 2016-10-26 18:50 | disposition home or self-care (01) | DRG 198 ==
LOC: ER 10:46 → TELE 10:47 → TELE-WESTW 21:20
PROVIDERS: ADMIT Internal Medicine; ATTEND Internal Medicine
DX: R07.89 Other chest pain (principal); I25.2 Old myocardial infarction; I25.110 Atherosclerotic heart disease of native coronary artery with unstable angina pectoris; I11.0 Hypertensive heart disease with heart failure; I95.9 Hypotension, unspecified; I50.9 Heart failure, unspecified; E11.65 Type 2 diabetes mellitus with hyperglycemia; E66.01 Morbid (severe) obesity due to excess calories; D35.01 Benign neoplasm of right adrenal gland; G47.30 Sleep apnea, unspecified; I49.3 Ventricular premature depolarization; M54.5 Low back pain; G89.29 Other chronic pain; M19.90 Unspecified osteoarthritis, unspecified site; E78.5 Hyperlipidemia, unspecified; Z86.711 Personal history of pulmonary embolism; Z79.4 Long term (current) use of insulin; Z82.49 Family history of ischemic heart disease and other diseases of the circulatory system; Z87.11 Personal history of peptic ulcer disease; Z83.3 Family history of diabetes mellitus; Z87.891 Personal history of nicotine dependence; Z95.1 Presence of aortocoronary bypass graft; Z95.810 Presence of automatic (implantable) cardiac defibrillator; Z80.9 Family history of malignant neoplasm, unspecified; Z81.1 Family history of alcohol abuse and dependence; Z95.5 Presence of coronary angioplasty implant and graft; Z88.1 Allergy status to other antibiotic agents; Z88.8 Allergy status to other drugs, medicaments and biological substances; Z71.89 Other specified counseling
CPT/HCPCS: 36415; 71020; 78452; 80053; 82550; 82962; 83036; 83735; 83880; 84484; 85025; 85379; 85610; 85652; 85730; 93005; 93017; 93971; 96374; 96375; J0153; J1815; J2405

== ENCOUNTER 2017-10-21 09:42 | Inpatient (IN) | payer MEDICAID ==
[~2017-10-21] VITALS: Ht 172.7 cm; Wt 124.7 kg
[~2017-10-21 09:42] MED LIST changes: +AMI200T PO; -ASPI-247 PO; +ASPI-378 PO; +ATOR80TA PO; -BACL10TA PO; -BENA10TA3 PO; +CAR125T PO; -CAR3125T PO; -CHOL20009 PO; +CHOL500021 PO; +FENO54TA4 PO; +GABA-339 PO; -GABA-521 PO; +HYDR-4683 PO; +INSLANTI SC; +LIDO5DIS21 TOP; +MORP30TA PO; -NOR10T PO; +OME20T PO; -OMEP20TA85 PO; -PRAVASTATIN PO; +SITA50TA PO; +SPIR25TA88 PO; +TAMS0.4C36 PO; +TROL10LO EX; -lantus SC
[2017-10-21] MEDS ORDERED: ASPirin 81 mg TAB PO ONE (10:00)
[2017-10-21] MEDS ORDERED: NITROGLYCERIN 0.4 MG SL TAB SL ONE (10:00)
[2017-10-21 10:08] LABS: Basophils # (auto) 0 uL; Basophils % (auto) 0.9 % (0.0-2.0); Eosinophils # (auto) 0.1 uL; Hematocrit 46.6 % (41.0-53.0); Hemoglobin 15.7 g/dL (13.5-17.5); Lymphocytes # (auto) 1.8 uL; Mean Corpuscular Hemoglobin 30.5 pg (28.0-32.0); Mean Corpuscular Hgb Conc. 33.6 g/dL (32.0-36.0); Mean Corpuscular Volume 90.8 fL (80.0-100.0); Monocytes # (auto) 0.4 uL; Monocytes % (auto) 8.1 % (0.0-12.0); Nucleated Red Blood Cells % 0.1 %; Platelet Count (auto) 217 10^3/uL (140-450); Red Blood Cells 5.13 10^6/uL (4.5-5.90); Red Cell Distribution Width 14.3 % (11.8-14.3); White Blood Cell 5.3 10^3/uL (4.4-10.8)
[2017-10-21 10:22] LABS: INR 0.92 (0.9-1.15); Partial Thromboplastin Time 23.7 sec (23.78-33.04); Prothrombin Time 9.9 sec (9.27-12.13)
[2017-10-21 10:25] LABS: Albumin 3.1 g/dL (3.4-5.0); Calcium 8.6 mg/dL (8.5-10.1); Potassium 4.3 mmol/L (3.5-5.1)
[2017-10-21 10:30] LABS: Bilirubin, Total 0.3 mg/dL (0.2-1.0); Total Protein 7.1 g/dL (6.4-8.2)
[2017-10-21] MEDS ORDERED: ONDANSETRON HCL 4 MG/2 ML VIAL IV ONE (10:45)
[2017-10-21] MEDS ORDERED: MORPHINE SULFATE 8mg/ml INJ SDV IV ONE (10:45)
[2017-10-21] MEDS ORDERED: ENOXAPARIN SOD 150 MG/1 ML SYRINGE SC ONE (11:30)
[2017-10-21] MEDS ORDERED: LORazepam 0.5 MG TAB PO PRN (11:45)
[2017-10-21] MEDS ORDERED: MORPHINE SULFATE 8mg/ml INJ SDV IV PRN ×2 (11:45)
[2017-10-21] MEDS ORDERED: NITROGLYCERIN 0.4 MG SL TAB SL PRN ×2 (11:45)
[2017-10-21] MEDS ORDERED: ZOLPIDEM TARTRATE 5 MG TAB PO PRN (11:45)
[2017-10-21] MEDS ORDERED: DEXTROSE (50%) 50ML SYRG IV PRN (11:45)
[2017-10-21] MEDS ORDERED: ONDANSETRON HCL 4 MG/2 ML VIAL IV PRN (11:45)
[2017-10-21] MEDS ORDERED: CHOLECALCIFEROL (VITD3) 1,000 UNIT TAB PO ONE (12:00)
[2017-10-21] MEDS ORDERED: MORPHINE SULF 30 mg ER tab PO ONE (12:00)
[2017-10-21] MEDS: Boost Glucose Control 8 Ounces PO SCH ×2 (12:00→18:07)
[2017-10-21] MEDS ORDERED: LIDOCAINE 5% TOPICAL PATCH TOP ONE (12:15)
[2017-10-21] MEDS ORDERED: ISOSORBIDE MONONITRATE 60 MG TAB PO ONE (12:15)
[2017-10-21] MEDS ORDERED: PANTOPRAZOLE 40 MG TAB PO ONE (12:15)
[2017-10-21] MEDS: CALCIUM CARB 500 MG CHEW TAB PO SCH ×2 (12:22→21:23)
[2017-10-21] MEDS: ACCU-CHEK COMFORT CURVE STRIP VI SCH ×3 (12:23→21:24)
[2017-10-21] MEDS: InsuLIN REG 1unit/0.01ml Soln (100units/ml) SC SCH ×3 (12:28→21:23)
[2017-10-21] MEDS: FENOFIBRATE 54 MG TABLET PO SCH (12:32)
[2017-10-21] MEDS: GABAPENTIN 300 MG CAP PO SCH ×2 (15:08→21:22)
[2017-10-21] MEDS: SODIUM CHLOR 0.9% PF (SALINE LOCK) 10ML VIAL/SYR IV SCH ×2 (17:01→21:22)
[2017-10-21 17:05] VITALS: BP 122/67
[2017-10-21] MEDS: MORPHINE SULFATE 8mg/ml INJ SDV IV PRN ×2 (17:17→21:24)
[2017-10-21] MEDS: TAMSULOSIN HYDROCHLORIDE 0.4 MG CAP PO SCH (18:05)
[2017-10-21] MEDS: glipiZIDE 5 MG TAB PO SCH (18:06)
[2017-10-21] MEDS: ACETAMINOPHEN 325 MG TAB PO PRN (20:11)
[2017-10-21] MEDS: AMIODARONE HCL 200 MG TAB PO SCH (21:22)
[2017-10-21] MEDS: CARVEDILOL 3.125 MG TAB PO SCH (21:22)
[2017-10-21] MEDS: ENOXAPARIN SOD 100 MG/1 ML SYRINGE SC SCH (21:23)
[2017-10-21] MEDS: INSULIN LANTUS (GLARGINE) 1 /0.01ml (100units/ml) SC SCH (21:23)
[2017-10-21] MEDS: MORPHINE SULF 30 mg ER tab PO SCH (21:23)
[2017-10-21 23:32] VITALS: BP 127/66
[2017-10-22] MEDS: MORPHINE SULFATE 8mg/ml INJ SDV IV PRN ×4 (03:55→17:19)
[2017-10-22 04:50] VITALS: BP 99/53
[2017-10-22] MEDS: SODIUM CHLOR 0.9% PF (SALINE LOCK) 10ML VIAL/SYR IV SCH ×3 (05:27→21:39)
[2017-10-22] MEDS: glipiZIDE 5 MG TAB PO SCH ×2 (06:19→17:19)
[2017-10-22] MEDS: ACCU-CHEK COMFORT CURVE STRIP VI SCH ×4 (06:19→21:39)
[2017-10-22] MEDS: GABAPENTIN 300 MG CAP PO SCH ×3 (06:19→21:38)
[2017-10-22] MEDS: InsuLIN REG 1unit/0.01ml Soln (100units/ml) SC SCH ×4 (06:19→21:57)
[2017-10-22 06:33] LABS: Basophils # (auto) 0 uL; Basophils % (auto) 0.3 % (0.0-2.0); Eosinophils # (auto) 0.1 uL; Eosinophils % (auto) 1.5 % (0.0-7.0); Hematocrit 41.5 % (41.0-53.0); Hemoglobin 14.1 g/dL (13.5-17.5); Lymphocytes # (auto) 2.2 uL; Lymphocytes % (auto) 32.2 % (10.0-50.0); Mean Corpuscular Hemoglobin 31.3 pg (28.0-32.0); Mean Corpuscular Hgb Conc. 34.1 g/dL (32.0-36.0); Mean Corpuscular Volume 91.8 fL (80.0-100.0); Monocytes # (auto) 0.6 uL; Nucleated Red Blood Cells % 0.2 %; Platelet Count (auto) 190 10^3/uL (140-450); Red Blood Cells 4.52 10^6/uL (4.5-5.90); Red Cell Distribution Width 14.2 % (11.8-14.3); White Blood Cell 6.9 10^3/uL (4.4-10.8)
[2017-10-22 06:49] LABS: BUN/Creatinine Ratio 18.9; Bilirubin, Total 0.3 mg/dL (0.2-1.0); Calcium 8.6 mg/dL (8.5-10.1); Magnesium 2.1 mg/dL (1.6-2.6); Potassium 3.7 mmol/L (3.5-5.1); Total Protein 6.7 g/dL (6.4-8.2)
[2017-10-22 06:50] LABS: Urine Bacteria NONE SEEN /hpf (None Seen); Urine Blood Negative /uL (Negative); Urine Mucus FEW (None Seen); Urine Specific Gravity 1.033 (1.001-1.035); Urine WBC <1 /hpf (0 - 3)
[2017-10-22 08:00] VITALS: BP 116/78
[2017-10-22 09:00] VITALS: BP 116/78
[2017-10-22] MEDS: AMIODARONE HCL 200 MG TAB PO SCH ×2 (09:24→21:38)
[2017-10-22] MEDS: LISINOPRIL 5 MG TAB PO SCH (09:25)
[2017-10-22] MEDS: ASPirin 81 mg TAB PO SCH (09:26)
[2017-10-22] MEDS: CHOLECALCIFEROL (VITD3) 1,000 UNIT TAB PO SCH (09:26)
[2017-10-22] MEDS: DOCUSATE SOD 100 MG CAP PO SCH (09:26)
[2017-10-22] MEDS: MORPHINE SULF 30 mg ER tab PO SCH ×2 (09:26→22:00)
[2017-10-22] MEDS: CALCIUM CARB 500 MG CHEW TAB PO SCH ×2 (09:27→21:38)
[2017-10-22] MEDS: SPIRONOLACTONE 25 MG TAB PO SCH (09:27)
[2017-10-22] MEDS: CARVEDILOL 3.125 MG TAB PO SCH ×2 (09:27→21:57)
[2017-10-22] MEDS: LIDOCAINE 5% TOPICAL PATCH TOP SCH (09:28)
[2017-10-22] MEDS: PANTOPRAZOLE 40 MG TAB PO SCH (09:28)
[2017-10-22] MEDS: ENOXAPARIN SOD 100 MG/1 ML SYRINGE SC SCH ×2 (09:28→21:38)
[2017-10-22] MEDS: FENOFIBRATE 54 MG TABLET PO SCH (10:00)
[2017-10-22] MEDS ORDERED: ISOSORBIDE MONONITRATE 60 MG TAB PO SCH (10:00)
[2017-10-22] MEDS ORDERED: PRASUGREL HCL 10 MG TAB PO SCH (10:00)
[2017-10-22] MEDS ORDERED: CLOPIDOGREL BISULFATE 75 MG TAB PO SCH (10:00)
[2017-10-22] MEDS: Boost Glucose Control 8 Ounces PO SCH ×3 (10:35→17:20)
[2017-10-22] MEDS: CLOPIDOGREL BISULFATE 75 MG TAB PO SCH (11:15)
[2017-10-22 13:00] VITALS: BP 120/70
[2017-10-22] MEDS: ACETAMINOPHEN 325 MG TAB PO PRN (15:38)
[2017-10-22 17:00] VITALS: BP 116/70
[2017-10-22] MEDS: TAMSULOSIN HYDROCHLORIDE 0.4 MG CAP PO SCH (17:18)
[2017-10-22] MEDS ORDERED: ALBUMIN 5% 250 ML IV ONE (21:30)
[2017-10-22] MEDS: INSULIN LANTUS (GLARGINE) 1 /0.01ml (100units/ml) SC SCH (21:38)
[2017-10-22 23:01] VITALS: BP 86/50
[2017-10-23 05:17] VITALS: BP 94/64
[2017-10-23] MEDS: SODIUM CHLOR 0.9% PF (SALINE LOCK) 10ML VIAL/SYR IV SCH ×3 (06:28→22:01)
[2017-10-23] MEDS: InsuLIN REG 1unit/0.01ml Soln (100units/ml) SC SCH ×4 (06:28→22:01)
[2017-10-23] MEDS: GABAPENTIN 300 MG CAP PO SCH ×3 (06:28→21:43)
[2017-10-23] MEDS: glipiZIDE 5 MG TAB PO SCH ×2 (06:29→18:05)
[2017-10-23] MEDS: ACCU-CHEK COMFORT CURVE STRIP VI SCH ×4 (06:29→21:46)
[2017-10-23 06:30] LABS: Basophils # (auto) 0 uL; Basophils % (auto) 0.3 % (0.0-2.0); Eosinophils # (auto) 0.1 uL; Eosinophils % (auto) 1.2 % (0.0-7.0); Hemoglobin 13.9 g/dL (13.5-17.5); Lymphocytes # (auto) 1.6 uL; Lymphocytes % (auto) 27.2 % (10.0-50.0); Mean Corpuscular Hemoglobin 31.5 pg (28.0-32.0); Mean Corpuscular Hgb Conc. 34.7 g/dL (32.0-36.0); Mean Corpuscular Volume 90.8 fL (80.0-100.0); Monocytes # (auto) 0.5 uL; Monocytes % (auto) 8.2 % (0.0-12.0); Neutrophils # (auto) 3.8 uL; Neutrophils % (auto) 63.1 % (37.0-80.0); Platelet Count (auto) 188 10^3/uL (140-450); Red Cell Distribution Width 13.8 % (11.8-14.3)
[2017-10-23 06:53] LABS: Calcium 8.8 mg/dL (8.5-10.1); Potassium 4.1 mmol/L (3.5-5.1)
[2017-10-23 08:00] VITALS: BP 90/56
[2017-10-23] MEDS: Boost Glucose Control 8 Ounces PO SCH ×3 (08:00→18:00)
[2017-10-23] MEDS: CALCIUM CARB 500 MG CHEW TAB PO SCH ×2 (09:17→21:43)
[2017-10-23] MEDS: CHOLECALCIFEROL (VITD3) 1,000 UNIT TAB PO SCH (09:18)
[2017-10-23] MEDS: PANTOPRAZOLE 40 MG TAB PO SCH (09:18)
[2017-10-23] MEDS: AMIODARONE HCL 200 MG TAB PO SCH ×2 (09:18→21:43)
[2017-10-23] MEDS: MORPHINE SULF 30 mg ER tab PO SCH ×2 (09:19→21:49)
[2017-10-23] MEDS: SPIRONOLACTONE 25 MG TAB PO SCH (09:19)
[2017-10-23] MEDS: DOCUSATE SOD 100 MG CAP PO SCH (09:19)
[2017-10-23] MEDS: ASPirin 81 mg TAB PO SCH (09:19)
[2017-10-23] MEDS: CLOPIDOGREL BISULFATE 75 MG TAB PO SCH (09:20)
[2017-10-23] MEDS: FENOFIBRATE 54 MG TABLET PO SCH (09:20)
[2017-10-23] MEDS: ENOXAPARIN SOD 100 MG/1 ML SYRINGE SC SCH ×2 (09:21→21:44)
[2017-10-23] MEDS: LIDOCAINE 5% TOPICAL PATCH TOP SCH (10:00)
[2017-10-23] MEDS: LISINOPRIL 5 MG TAB PO SCH (10:00)
[2017-10-23] MEDS: CARVEDILOL 3.125 MG TAB PO SCH ×2 (10:00→21:43)
[2017-10-23] MEDS ORDERED: MORPHINE SULFATE 10 MG/ML INJ 1ML SDV IV PRN (11:15)
[2017-10-23] MEDS: MORPHINE SULFATE 10 MG/ML INJ 1ML SDV IV PRN ×2 (11:25→16:46)
[2017-10-23 12:00] VITALS: BP 100/62
[2017-10-23 16:34] VITALS: BP 110/71
[2017-10-23] MEDS: TAMSULOSIN HYDROCHLORIDE 0.4 MG CAP PO SCH (18:05)
[2017-10-23 19:30] VITALS: BP 111/60
[2017-10-23] MEDS ORDERED: KETOROLAC TROMETH 30 MG/ML 1ML VIAL IV ONE (20:30)
[2017-10-23] MEDS: INSULIN LANTUS (GLARGINE) 1 /0.01ml (100units/ml) SC SCH (22:01)
[2017-10-23 22:29] VITALS: BP 111/60
[2017-10-24 05:00] VITALS: BP 92/52
[2017-10-24] MEDS: GABAPENTIN 300 MG CAP PO SCH ×3 (06:00→21:56)
[2017-10-24] MEDS: SODIUM CHLOR 0.9% PF (SALINE LOCK) 10ML VIAL/SYR IV SCH ×3 (06:00→21:57)
[2017-10-24] MEDS: ACCU-CHEK COMFORT CURVE STRIP VI SCH ×4 (06:01→22:06)
[2017-10-24] MEDS: InsuLIN REG 1unit/0.01ml Soln (100units/ml) SC SCH ×4 (06:01→22:05)
[2017-10-24] MEDS: glipiZIDE 5 MG TAB PO SCH ×2 (06:01→17:30)
[2017-10-24 06:04] LABS: Basophils # (auto) 0 uL; Basophils % (auto) 0.4 % (0.0-2.0); Eosinophils # (auto) 0.1 uL; Eosinophils % (auto) 1.1 % (0.0-7.0); Hematocrit 40.4 % (41.0-53.0); Hemoglobin 13.7 g/dL (13.5-17.5); Lymphocytes # (auto) 1.3 uL; Lymphocytes % (auto) 27.1 % (10.0-50.0); Mean Corpuscular Hemoglobin 30.9 pg (28.0-32.0); Mean Corpuscular Hgb Conc. 33.9 g/dL (32.0-36.0); Mean Corpuscular Volume 91.1 fL (80.0-100.0); Monocytes # (auto) 0.6 uL; Monocytes % (auto) 11.6 % (0.0-12.0); Neutrophils # (auto) 2.9 uL; Neutrophils % (auto) 59.8 % (37.0-80.0); Nucleated Red Blood Cells % 0.1 %; Platelet Count (auto) 188 10^3/uL (140-450); Red Blood Cells 4.43 10^6/uL (4.5-5.90); Red Cell Distribution Width 14.1 % (11.8-14.3); White Blood Cell 4.8 10^3/uL (4.4-10.8)
[2017-10-24 06:31] LABS: Calcium 8.5 mg/dL (8.5-10.1); Potassium 3.8 mmol/L (3.5-5.1)
[2017-10-24] MEDS: Boost Glucose Control 8 Ounces PO SCH ×3 (07:28→17:36)
[2017-10-24 07:45] VITALS: BP 112/70
[2017-10-24 08:56] VITALS: BP 112/70
[2017-10-24] MEDS: CALCIUM CARB 500 MG CHEW TAB PO SCH ×2 (09:29→21:56)
[2017-10-24] MEDS: DOCUSATE SOD 100 MG CAP PO SCH (09:29)
[2017-10-24] MEDS: PANTOPRAZOLE 40 MG TAB PO SCH (09:30)
[2017-10-24] MEDS: AMIODARONE HCL 200 MG TAB PO SCH ×2 (09:30→21:57)
[2017-10-24] MEDS: LISINOPRIL 5 MG TAB PO SCH ×2 (09:30→10:00)
[2017-10-24] MEDS: CARVEDILOL 3.125 MG TAB PO SCH ×2 (09:31→22:02)
[2017-10-24] MEDS: CHOLECALCIFEROL (VITD3) 1,000 UNIT TAB PO SCH (09:31)
[2017-10-24] MEDS: MORPHINE SULF 30 mg ER tab PO SCH ×2 (09:32→21:57)
[2017-10-24] MEDS: LIDOCAINE 5% TOPICAL PATCH TOP SCH (09:35)
[2017-10-24] MEDS: FENOFIBRATE 54 MG TABLET PO SCH (09:42)
[2017-10-24] MEDS: ENOXAPARIN SOD 100 MG/1 ML SYRINGE SC SCH (09:43)
[2017-10-24] MEDS: CLOPIDOGREL BISULFATE 75 MG TAB PO SCH (09:43)
[2017-10-24] MEDS: ASPirin 81 mg TAB PO SCH (10:00)
[2017-10-24] MEDS: MORPHINE SULFATE 10 MG/ML INJ 1ML SDV IV PRN ×3 (11:19→20:04)
[2017-10-24] MEDS ORDERED: ceFAZolin 1GM/100ML 100 ML IV ONE (12:04)
[2017-10-24] MEDS ORDERED: MIDAZOLAM HCL 1MG/1ML-2 ML VIAL ONE (12:51)
[2017-10-24] MEDS ORDERED: VANCOMYCIN HCL 1000 MG VL ONE (12:51)
[2017-10-24] MEDS ORDERED: fentaNYL CITRATE 100 MCG/2 ML VL ONE (12:51)
[2017-10-24] MEDS ORDERED: VANCOMYCIN 1GM/250ML 250 ML IV ONE (12:52)
[2017-10-24] MEDS ORDERED: FUROSEMIDE 20 MG/2 ML VIAL ONE (13:46)
[2017-10-24 14:14] VITALS: BP 105/71
[2017-10-24 17:00] VITALS: BP 108/71
[2017-10-24] MEDS: TAMSULOSIN HYDROCHLORIDE 0.4 MG CAP PO SCH (17:31)
[2017-10-24 22:00] VITALS: BP 106/76
[2017-10-24] MEDS ORDERED: VANCOMYCIN 1GM/250ML 250 ML IV SCH (22:00)
[2017-10-24] MEDS: INSULIN LANTUS (GLARGINE) 1 /0.01ml (100units/ml) SC SCH (22:06)
[2017-10-25] MEDS: MORPHINE SULFATE 10 MG/ML INJ 1ML SDV IV PRN ×3 (00:13→10:48)
[2017-10-25] MEDS ORDERED: VANCOMYCIN 1GM/250ML 250 ML IV SCH (02:00)
[2017-10-25 05:00] VITALS: BP 102/75
[2017-10-25] MEDS: SODIUM CHLOR 0.9% PF (SALINE LOCK) 10ML VIAL/SYR IV SCH (05:32)
[2017-10-25] MEDS: GABAPENTIN 300 MG CAP PO SCH (05:48)
[2017-10-25] MEDS: DOCUSATE SOD 100 MG CAP PO SCH (05:48)
[2017-10-25 06:03] LABS: Basophils # (auto) 0 uL; Basophils % (auto) 0.3 % (0.0-2.0); Eosinophils # (auto) 0.1 uL; Eosinophils % (auto) 1.3 % (0.0-7.0); Hematocrit 41.3 % (41.0-53.0); Hemoglobin 14.3 g/dL (13.5-17.5); Lymphocytes # (auto) 1.5 uL; Lymphocytes % (auto) 21.3 % (10.0-50.0); Mean Corpuscular Hemoglobin 31.5 pg (28.0-32.0); Mean Corpuscular Hgb Conc. 34.7 g/dL (32.0-36.0); Mean Corpuscular Volume 90.8 fL (80.0-100.0); Monocytes # (auto) 0.7 uL; Monocytes % (auto) 10.1 % (0.0-12.0); Neutrophils # (auto) 4.7 uL; Nucleated Red Blood Cells % 0.1 %; Platelet Count (auto) 203 10^3/uL (140-450); Red Blood Cells 4.54 10^6/uL (4.5-5.90); Red Cell Distribution Width 13.9 % (11.8-14.3)
[2017-10-25] MEDS: ACCU-CHEK COMFORT CURVE STRIP VI SCH ×2 (06:05→12:09)
[2017-10-25] MEDS: glipiZIDE 5 MG TAB PO SCH (06:05)
[2017-10-25] MEDS: InsuLIN REG 1unit/0.01ml Soln (100units/ml) SC SCH ×2 (06:06→12:47)
[2017-10-25 06:25] LABS: Potassium 3.9 mmol/L (3.5-5.1)
[2017-10-25 06:31] LABS: BUN/Creatinine Ratio 23.6; Calcium 8.5 mg/dL (8.5-10.1)
[2017-10-25 07:40] VITALS: BP 97/67
[2017-10-25] MEDS: Boost Glucose Control 8 Ounces PO SCH ×2 (08:21→12:09)
[2017-10-25] MEDS: ASPirin 81 mg TAB PO SCH (08:37)
[2017-10-25] MEDS: CLOPIDOGREL BISULFATE 75 MG TAB PO SCH (08:38)
[2017-10-25 09:00] VITALS: BP_SYST 97; BP_SYST 98; BP_DIAS 57; BP_DIAS 67
[2017-10-25] MEDS: CALCIUM CARB 500 MG CHEW TAB PO SCH (09:30)
[2017-10-25] MEDS: PANTOPRAZOLE 40 MG TAB PO SCH (09:30)
[2017-10-25] MEDS: AMIODARONE HCL 200 MG TAB PO SCH (09:31)
[2017-10-25] MEDS: CHOLECALCIFEROL (VITD3) 1,000 UNIT TAB PO SCH (09:31)
[2017-10-25] MEDS: CARVEDILOL 3.125 MG TAB PO SCH (09:32)
[2017-10-25] MEDS: LIDOCAINE 5% TOPICAL PATCH TOP SCH (09:32)
[2017-10-25] MEDS: FENOFIBRATE 54 MG TABLET PO SCH (09:36)
[2017-10-25] MEDS: LISINOPRIL 5 MG TAB PO SCH (09:37)
[2017-10-25] MEDS: MORPHINE SULF 30 mg ER tab PO SCH (10:00)
[2017-10-25 11:05] VITALS: BP 132/80
[2017-10-25 12:55] VITALS: BP 117/76
== END 2017-10-25 14:40 | disposition home or self-care (01) | DRG 161 ==
LOC: EDBD 09:42 → ER 09:42 → TELE 09:43 → TELE-WESTW 12:52
PROVIDERS: ADMIT Internal Medicine; ATTEND Internal Medicine
PROC: 02HL3KZ Insertion of Defibrillator Lead into Left Ventricle, Percutaneous Approach (ICD-10-PCS; principal; 2017-10-24)
PROC: 0JH609Z Insertion of Cardiac Resynchronization Defibrillator Pulse Generator into Chest Subcutaneous Tissue and Fascia, Open Approach (ICD-10-PCS; 2017-10-24)
PROC: 0JPT0PZ Removal of Cardiac Rhythm Related Device from Trunk Subcutaneous Tissue and Fascia, Open Approach (ICD-10-PCS; 2017-10-24)
DX: I25.119 Atherosclerotic heart disease of native coronary artery with unspecified angina pectoris (principal); I50.43 Acute on chronic combined systolic (congestive) and diastolic (congestive) heart failure; E44.0 Moderate protein-calorie malnutrition; E11.21 Type 2 diabetes mellitus with diabetic nephropathy; I24.9 Acute ischemic heart disease, unspecified; I13.0 Hypertensive heart and chronic kidney disease with heart failure and stage 1 through stage 4 chronic kidney disease, or unspecified chronic kidney disease; E11.51 Type 2 diabetes mellitus with diabetic peripheral angiopathy without gangrene; N18.2 Chronic kidney disease, stage 2 (mild); E11.22 Type 2 diabetes mellitus with diabetic chronic kidney disease; I25.5 Ischemic cardiomyopathy; M19.90 Unspecified osteoarthritis, unspecified site; E78.5 Hyperlipidemia, unspecified; I25.2 Old myocardial infarction; Z87.891 Personal history of nicotine dependence; Z86.74 Personal history of sudden cardiac arrest; Z82.49 Family history of ischemic heart disease and other diseases of the circulatory system; Z83.3 Family history of diabetes mellitus; Z87.11 Personal history of peptic ulcer disease; Z95.1 Presence of aortocoronary bypass graft; Z95.5 Presence of coronary angioplasty implant and graft; Z95.810 Presence of automatic (implantable) cardiac defibrillator; Z88.0 Allergy status to penicillin; Z88.8 Allergy status to other drugs, medicaments and biological substances; Z79.899 Other long term (current) drug therapy; Z80.8 Family history of malignant neoplasm of other organs or systems; Z88.1 Allergy status to other antibiotic agents; Z68.41 Body mass index [BMI] 40.0-44.9, adult
CPT/HCPCS: 33249; 36415; 71045; 80048; 80053; 80061; 81001; 82962; 83036; 83735; 83880; 84443; 84484; 85025; 85610; 85730; 86850; 86900; 86901; 93005; 96372; 96374; 96375; 99152; J0690; J1815; J1885; J2250; J2270; J2405

== ENCOUNTER 2017-10-29 12:47 | Inpatient (IN) | payer MEDICAID ==
[~2017-10-29] VITALS: Ht 177.8 cm; Wt 127.6 kg
[~2017-10-29 12:47] MED LIST changes: -SPIR25TA88 PO
[2017-10-29 14:08] LABS: Basophils # (auto) 0 uL; Basophils % (auto) 0.4 % (0.0-2.0); Eosinophils # (auto) 0.1 uL; Eosinophils % (auto) 0.8 % (0.0-7.0); Hematocrit 44.7 % (41.0-53.0); Hemoglobin 15.2 g/dL (13.5-17.5); Lymphocytes # (auto) 1.4 uL; Lymphocytes % (auto) 23.3 % (10.0-50.0); Mean Corpuscular Hemoglobin 30.6 pg (28.0-32.0); Monocytes # (auto) 0.4 uL; Monocytes % (auto) 6.2 % (0.0-12.0); Neutrophils # (auto) 4.2 uL; Neutrophils % (auto) 69.3 % (37.0-80.0); Nucleated Red Blood Cells % 0.1 %; Platelet Count (auto) 285 10^3/uL (140-450); Red Blood Cells 4.96 10^6/uL (4.5-5.90); Red Cell Distribution Width 13.8 % (11.8-14.3); White Blood Cell 6.1 10^3/uL (4.4-10.8)
[2017-10-29 14:27] LABS: Alanine Aminotransferase 15 U/L (16-61); Albumin 3.1 g/dL (3.4-5.0); Alkaline Phosphatase 80 U/L (45-117); Anion Gap 11 (5-15); Aspartate Aminotransferase 5 U/L (15-37); BUN/Creatinine Ratio 13.5; Bilirubin, Total 0.3 mg/dL (0.2-1.0); Blood Urea Nitrogen 13 mg/dL (7-18); Calcium 8.8 mg/dL (8.5-10.1); Carbon Dioxide 23 mmol/L (21-32); Chloride 104 mmol/L (98-107); GFR African American 101 mL/min; GFR Non-African American 84 mL/min; Glucose 383 mg/dL (74-106); Potassium 4.3 mmol/L (3.5-5.1); Sodium 138 mmol/L (136-145); Total Protein 7.6 g/dL (6.4-8.2)
[2017-10-29 14:28] LABS: Partial Thromboplastin Time 25.7 sec (23.78-33.04); Prothrombin Time 10.7 sec (9.27-12.13)
[2017-10-29] MEDS ORDERED: ONDANSETRON HCL 4 MG/2 ML VIAL IV PRN (14:45)
[2017-10-29] MEDS ORDERED: ZOLPIDEM TARTRATE 5 MG TAB PO PRN (14:45)
[2017-10-29] MEDS ORDERED: LORazepam 0.5 MG TAB PO PRN (14:45)
[2017-10-29] MEDS ORDERED: NITROGLYCERIN 0.4 MG SL TAB SL PRN ×2 (14:45)
[2017-10-29] MEDS ORDERED: ALUM & MAG HYDROX-SIMETH LIQ(MAALOX) 30 ML PO ONE (14:45)
[2017-10-29] MEDS ORDERED: ACETAMINOPHEN 325 MG TAB PO PRN (14:45)
[2017-10-29] MEDS ORDERED: MORPHINE SULFATE 8mg/ml INJ SDV IV PRN ×2 (14:45)
[2017-10-29] MEDS ORDERED: HYDROcodone-ACET 5/325MG TAB PO PRN (15:00)
[2017-10-29] MEDS ORDERED: DEXTROSE (50%) 50ML SYRG IV PRN (15:00)
[2017-10-29] MEDS: NALBUPHINE HCL 10 MG/1ml INJECTION IV PRN (15:16)
[2017-10-29] MEDS: ACCU-CHEK COMFORT CURVE STRIP VI SCH ×2 (17:39→22:26)
[2017-10-29] MEDS: InsuLIN REG 1unit/0.01ml Soln (100units/ml) SC SCH ×2 (17:40→22:26)
[2017-10-29] MEDS: Boost Glucose Control 8 Ounces PO SCH (18:00)
[2017-10-29 19:20] LABS: Urine Bacteria NONE SEEN /hpf (None Seen); Urine Blood Negative /uL (Negative); Urine Specific Gravity 1.041 (1.001-1.035); Urine WBC 1 /hpf (0 - 3)
[2017-10-29 20:00] VITALS: BP 124/74
[2017-10-29] MEDS: TAMSULOSIN HYDROCHLORIDE 0.4 MG CAP PO SCH (20:42)
[2017-10-29 21:13] VITALS: BP 139/80
[2017-10-29] MEDS: TROLAMINE SALICYLATE 10% TOP CREAM TOP SCH (22:00)
[2017-10-29] MEDS: glipiZIDE 5 MG TAB PO SCH (22:16)
[2017-10-29] MEDS: AMIODARONE HCL 200 MG TAB PO SCH (22:24)
[2017-10-29] MEDS: SODIUM CHLOR 0.9% PF (SALINE LOCK) 10ML VIAL/SYR IV SCH (22:24)
[2017-10-29] MEDS: CARVEDILOL 12.5 MG TAB PO SCH (22:25)
[2017-10-29] MEDS: CALCIUM CARB 500 MG CHEW TAB PO SCH (22:25)
[2017-10-29] MEDS: MORPHINE SULF 30 mg ER tab PO SCH (22:25)
[2017-10-29] MEDS: GABAPENTIN 400 MG CAP PO SCH (22:25)
[2017-10-29] MEDS: ENALAPRIL MALEATE 2.5 MG TAB PO SCH (22:26)
[2017-10-29] MEDS: INSULIN LANTUS (GLARGINE) 1 /0.01ml (100units/ml) SC SCH (22:26)
[2017-10-30] MEDS: NALBUPHINE HCL 10 MG/1ml INJECTION IV PRN ×2 (00:21→16:25)
[2017-10-30 05:08] VITALS: BP 99/57
[2017-10-30 06:24] LABS: Basophils # (auto) 0.1 uL; Basophils % (auto) 1.8 % (0.0-2.0); Eosinophils # (auto) 0.2 uL; Eosinophils % (auto) 3.2 % (0.0-7.0); Hematocrit 41.6 % (41.0-53.0); Hemoglobin 14.2 g/dL (13.5-17.5); Lymphocytes # (auto) 1.9 uL; Lymphocytes % (auto) 37.3 % (10.0-50.0); Mean Corpuscular Hemoglobin 30.8 pg (28.0-32.0); Mean Corpuscular Hgb Conc. 34.1 g/dL (32.0-36.0); Mean Corpuscular Volume 90.4 fL (80.0-100.0); Monocytes # (auto) 0.3 uL; Monocytes % (auto) 6.7 % (0.0-12.0); Neutrophils # (auto) 2.6 uL; Nucleated Red Blood Cells % 0.7 %; Platelet Count (auto) 279 10^3/uL (140-450); Red Cell Distribution Width 13.8 % (11.8-14.3); White Blood Cell 5.2 10^3/uL (4.4-10.8)
[2017-10-30] MEDS: GABAPENTIN 400 MG CAP PO SCH ×3 (06:25→22:18)
[2017-10-30] MEDS: SODIUM CHLOR 0.9% PF (SALINE LOCK) 10ML VIAL/SYR IV SCH ×3 (06:25→22:17)
[2017-10-30] MEDS: ACCU-CHEK COMFORT CURVE STRIP VI SCH ×4 (06:26→22:19)
[2017-10-30] MEDS: glipiZIDE 5 MG TAB PO SCH ×2 (06:26→17:34)
[2017-10-30] MEDS: InsuLIN REG 1unit/0.01ml Soln (100units/ml) SC SCH ×4 (06:26→22:18)
[2017-10-30 08:23] LABS: Albumin 2.7 g/dL (3.4-5.0); BUN/Creatinine Ratio 21.9; Bilirubin, Total 0.3 mg/dL (0.2-1.0); Calcium 8.7 mg/dL (8.5-10.1); Magnesium 2.1 mg/dL (1.6-2.6); Potassium 4.6 mmol/L (3.5-5.1); Total Protein 6.8 g/dL (6.4-8.2)
[2017-10-30] MEDS: Boost Glucose Control 8 Ounces PO SCH ×3 (08:54→17:34)
[2017-10-30 09:00] VITALS: BP 100/63
[2017-10-30] MEDS: AMIODARONE HCL 200 MG TAB PO SCH ×2 (10:00→22:17)
[2017-10-30] MEDS: CARVEDILOL 12.5 MG TAB PO SCH ×2 (10:00→22:00)
[2017-10-30] MEDS: ISOSORBIDE MONONITRATE 60 MG TAB PO SCH (10:00)
[2017-10-30] MEDS: ENALAPRIL MALEATE 2.5 MG TAB PO SCH ×2 (10:00→22:00)
[2017-10-30] MEDS: TROLAMINE SALICYLATE 10% TOP CREAM TOP SCH ×2 (10:00→22:00)
[2017-10-30] MEDS: CALCIUM CARB 500 MG CHEW TAB PO SCH ×2 (10:12→22:18)
[2017-10-30] MEDS: CHOLECALCIFEROL (VITD3) 1,000 UNIT TAB PO SCH (10:12)
[2017-10-30] MEDS: DOCUSATE SOD 100 MG CAP PO SCH (10:12)
[2017-10-30] MEDS: PANTOPRAZOLE 40 MG TAB PO SCH (10:13)
[2017-10-30] MEDS: MORPHINE SULF 30 mg ER tab PO SCH ×2 (10:13→22:18)
[2017-10-30] MEDS: ASPirin 81 mg TAB PO SCH (10:14)
[2017-10-30] MEDS: SPIRONOLACTONE 25 MG TAB PO SCH (10:14)
[2017-10-30] MEDS: LIDOCAINE 5% TOPICAL PATCH TOP SCH (10:16)
[2017-10-30 13:00] VITALS: BP 119/68
[2017-10-30] MEDS ORDERED: PRASUGREL HCL 10 MG TAB PO ONE (14:00)
[2017-10-30 17:00] VITALS: BP 105/79
[2017-10-30] MEDS: TAMSULOSIN HYDROCHLORIDE 0.4 MG CAP PO SCH (17:34)
[2017-10-30 20:00] VITALS: BP 100/63
[2017-10-30 22:00] VITALS: BP 99/69
[2017-10-30] MEDS: INSULIN LANTUS (GLARGINE) 1 /0.01ml (100units/ml) SC SCH (22:19)
[2017-10-31 05:00] VITALS: BP 95/58
[2017-10-31] MEDS: SODIUM CHLOR 0.9% PF (SALINE LOCK) 10ML VIAL/SYR IV SCH ×2 (06:15→13:24)
[2017-10-31] MEDS: InsuLIN REG 1unit/0.01ml Soln (100units/ml) SC SCH ×2 (06:15→11:22)
[2017-10-31] MEDS: ACCU-CHEK COMFORT CURVE STRIP VI SCH ×2 (06:15→11:23)
[2017-10-31] MEDS: glipiZIDE 5 MG TAB PO SCH (06:15)
[2017-10-31] MEDS: GABAPENTIN 400 MG CAP PO SCH ×2 (06:16→13:24)
[2017-10-31 06:58] LABS: Potassium 3.8 mmol/L (3.5-5.1)
[2017-10-31 07:04] LABS: BUN/Creatinine Ratio 22.2; Calcium 8.9 mg/dL (8.5-10.1)
[2017-10-31 08:00] VITALS: BP 110/73
[2017-10-31] MEDS: TROLAMINE SALICYLATE 10% TOP CREAM TOP SCH (10:00)
[2017-10-31] MEDS ORDERED: PRASUGREL HCL 10 MG TAB PO SCH (10:00)
[2017-10-31] MEDS: CHOLECALCIFEROL (VITD3) 1,000 UNIT TAB PO SCH (10:07)
[2017-10-31] MEDS: DOCUSATE SOD 100 MG CAP PO SCH (10:07)
[2017-10-31] MEDS: CALCIUM CARB 500 MG CHEW TAB PO SCH (10:07)
[2017-10-31] MEDS: ASPirin 81 mg TAB PO SCH (10:07)
[2017-10-31] MEDS: ENALAPRIL MALEATE 2.5 MG TAB PO SCH (10:08)
[2017-10-31] MEDS: ISOSORBIDE MONONITRATE 60 MG TAB PO SCH (10:08)
[2017-10-31] MEDS: PANTOPRAZOLE 40 MG TAB PO SCH (10:09)
[2017-10-31] MEDS: CARVEDILOL 12.5 MG TAB PO SCH (10:09)
[2017-10-31] MEDS: AMIODARONE HCL 200 MG TAB PO SCH (10:09)
[2017-10-31] MEDS: Boost Glucose Control 8 Ounces PO SCH ×2 (10:12→12:31)
[2017-10-31] MEDS: LIDOCAINE 5% TOPICAL PATCH TOP SCH (10:12)
[2017-10-31] MEDS: MORPHINE SULF 30 mg ER tab PO SCH (10:13)
[2017-10-31] MEDS: SPIRONOLACTONE 25 MG TAB PO SCH (10:16)
[2017-10-31 11:00] VITALS: BP 109/70
[2017-10-31 13:52] VITALS: BP 107/70
== END 2017-10-31 14:35 | disposition home or self-care (01) | DRG 201 ==
LOC: ER 12:47 → TELE 12:48 → TELE-WESTW 18:43
PROVIDERS: ADMIT Internal Medicine; ATTEND Internal Medicine
PROC: 4B02XTZ Measurement of Cardiac Defibrillator, External Approach (ICD-10-PCS; principal; 2017-10-31)
DX: I49.3 Ventricular premature depolarization (principal); I47.2 Ventricular tachycardia; E11.21 Type 2 diabetes mellitus with diabetic nephropathy; I42.0 Dilated cardiomyopathy; E44.0 Moderate protein-calorie malnutrition; I13.0 Hypertensive heart and chronic kidney disease with heart failure and stage 1 through stage 4 chronic kidney disease, or unspecified chronic kidney disease; I50.9 Heart failure, unspecified; Z68.41 Body mass index [BMI] 40.0-44.9, adult; R07.9 Chest pain, unspecified; I25.2 Old myocardial infarction; E03.9 Hypothyroidism, unspecified; E11.22 Type 2 diabetes mellitus with diabetic chronic kidney disease; E66.01 Morbid (severe) obesity due to excess calories; I25.5 Ischemic cardiomyopathy; E78.5 Hyperlipidemia, unspecified; D63.8 Anemia in other chronic diseases classified elsewhere; M19.90 Unspecified osteoarthritis, unspecified site; N18.2 Chronic kidney disease, stage 2 (mild); I25.10 Atherosclerotic heart disease of native coronary artery without angina pectoris; Z98.61 Coronary angioplasty status; Z95.810 Presence of automatic (implantable) cardiac defibrillator; Z95.1 Presence of aortocoronary bypass graft; Z91.19 Patient's noncompliance with other medical treatment and regimen; Z88.1 Allergy status to other antibiotic agents; Z88.8 Allergy status to other drugs, medicaments and biological substances; Z79.899 Other long term (current) drug therapy; Z87.11 Personal history of peptic ulcer disease; Z87.891 Personal history of nicotine dependence; Z86.711 Personal history of pulmonary embolism; Z82.49 Family history of ischemic heart disease and other diseases of the circulatory system; Z83.3 Family history of diabetes mellitus
CPT/HCPCS: 36415; 71046; 80048; 80053; 80061; 81001; 82962; 83036; 83735; 83880; 84443; 84484; 85025; 85610; 85730; 87081; 93005; 93289; 96372; 96374; J1815; J2405

== ENCOUNTER 2017-11-07 17:01 | Inpatient (IN) | payer MEDICAID ==
[~2017-11-07] VITALS: Ht 167.6 cm; Wt 127.7 kg
[~2017-11-07 17:01] MED LIST changes: -ATOR80TA PO
[2017-11-07] MEDS ORDERED: TETANUS-DIPTH-ACEL PERTUSSIS 0.5ML SYRG IM ONE (18:15)
[2017-11-07 19:01] LABS: Basophils # (auto) 0 uL; Basophils % (auto) 0.3 % (0.0-2.0); Eosinophils # (auto) 0 uL; Eosinophils % (auto) 0.7 % (0.0-7.0); Hemoglobin 15.4 g/dL (13.5-17.5); Lymphocytes # (auto) 1.4 uL; Lymphocytes % (auto) 21.8 % (10.0-50.0); Mean Corpuscular Hemoglobin 30.7 pg (28.0-32.0); Mean Corpuscular Hgb Conc. 34.1 g/dL (32.0-36.0); Mean Corpuscular Volume 89.9 fL (80.0-100.0); Monocytes # (auto) 0.4 uL; Monocytes % (auto) 5.9 % (0.0-12.0); Neutrophils # (auto) 4.7 uL; Neutrophils % (auto) 71.3 % (37.0-80.0); Platelet Count (auto) 309 10^3/uL (140-450); White Blood Cell 6.6 10^3/uL (4.4-10.8)
[2017-11-07 19:09] LABS: Alanine Aminotransferase 16 U/L (16-61); Albumin 3.3 g/dL (3.4-5.0); Anion Gap 7 (5-15); Aspartate Aminotransferase 15 U/L (15-37); BUN/Creatinine Ratio 16.2; Blood Urea Nitrogen 16 mg/dL (7-18); Calcium 8.4 mg/dL (8.5-10.1); Carbon Dioxide 25 mmol/L (21-32); Chloride 106 mmol/L (98-107); GFR African American 98 mL/min; GFR Non-African American 81 mL/min; Glucose 316 mg/dL (74-106); Potassium 4.6 mmol/L (3.5-5.1); Sodium 138 mmol/L (136-145)
[2017-11-07 19:10] LABS: Partial Thromboplastin Time 24.3 sec (23.78-33.04); Prothrombin Time 10.7 sec (9.27-12.13)
[2017-11-07 19:13] LABS: Alkaline Phosphatase 68 U/L (45-117); Bilirubin, Total 0.3 mg/dL (0.2-1.0); Total Protein 7.3 g/dL (6.4-8.2)
[2017-11-07] MEDS ORDERED: ACETAMINOPHEN 325 MG TAB PO ONE (19:30)
[2017-11-07] MEDS ORDERED: MEPERIDINE HCL (25 MG/ML) 1ML VIAL IV ONE (20:45)
[2017-11-07] MEDS ORDERED: ONDANSETRON HCL 4 MG/2 ML VIAL IV ONE (20:45)
[2017-11-07] MEDS ORDERED: MORPHINE SULF(PF) 0.5MG/ML 10ML VIAL IV PRN (21:15)
[2017-11-07] MEDS ORDERED: NITROGLYCERIN 0.4 MG SL TAB SL PRN (21:15)
[2017-11-07] MEDS ORDERED: TEMAZEPAM 15 MG CAP PO PRN (21:15)
[2017-11-07] MEDS ORDERED: DEXTROSE (50%) 50ML SYRG IV PRN (21:15)
[2017-11-07] MEDS ORDERED: ONDANSETRON HCL 4 MG/2 ML VIAL IV PRN (21:15)
[2017-11-07] MEDS ORDERED: ACETAMINOPHEN 325 MG TAB PO PRN (21:15)
[2017-11-07] MEDS: CARVEDILOL 12.5 MG TAB PO SCH (22:00)
[2017-11-07] MEDS: AMIODARONE HCL 200 MG TAB PO SCH (22:00)
[2017-11-07] MEDS ORDERED: HYDROcodone-ACET 10/325MG TAB PO ONE (22:15)
[2017-11-07] MEDS: GABAPENTIN 300 MG CAP PO SCH (22:27)
[2017-11-07] MEDS: FAMOTIDINE 20 MG TAB PO SCH (22:27)
[2017-11-07 22:50] VITALS: BP 137/92
[2017-11-07 23:08] VITALS: BP 137/92
[2017-11-07] MEDS: InsuLIN REG 1unit/0.01ml Soln (100units/ml) SC SCH (23:49)
[2017-11-07] MEDS: ACCU-CHEK COMFORT CURVE STRIP VI SCH (23:49)
[2017-11-08] VITALS (7 sets, daily range): BP systolic 101–120; BP diastolic 60–75
[2017-11-08] MEDS: HYDROcodone-ACET 5/325MG TAB PO PRN ×3 (01:20→23:46)
[2017-11-08] MEDS: ACCU-CHEK COMFORT CURVE STRIP VI SCH ×4 (05:40→23:45)
[2017-11-08] MEDS: InsuLIN REG 1unit/0.01ml Soln (100units/ml) SC SCH ×4 (05:40→23:45)
[2017-11-08] MEDS: GABAPENTIN 300 MG CAP PO SCH ×3 (05:40→21:56)
[2017-11-08] MEDS ORDERED: KETOROLAC TROMETH 30 MG/ML 1ML VIAL IV ONE ×2 (05:45→11:30)
[2017-11-08 07:06] LABS: Basophils # (auto) 0.1 uL; Basophils % (auto) 1.2 % (0.0-2.0); Eosinophils # (auto) 0.1 uL; Eosinophils % (auto) 2.5 % (0.0-7.0); Hematocrit 44.2 % (41.0-53.0); Hemoglobin 15.1 g/dL (13.5-17.5); Lymphocytes # (auto) 1.7 uL; Lymphocytes % (auto) 34.3 % (10.0-50.0); Mean Corpuscular Hemoglobin 30.6 pg (28.0-32.0); Mean Corpuscular Hgb Conc. 34.1 g/dL (32.0-36.0); Mean Corpuscular Volume 89.7 fL (80.0-100.0); Monocytes # (auto) 0.4 uL; Monocytes % (auto) 8.7 % (0.0-12.0); Neutrophils # (auto) 2.6 uL; Neutrophils % (auto) 53.3 % (37.0-80.0); Nucleated Red Blood Cells % 0.1 %; Platelet Count (auto) 245 10^3/uL (140-450); Red Blood Cells 4.92 10^6/uL (4.5-5.90); Red Cell Distribution Width 13.8 % (11.8-14.3); White Blood Cell 4.8 10^3/uL (4.4-10.8)
[2017-11-08 07:32] LABS: Albumin 3.2 g/dL (3.4-5.0); Bilirubin, Total 0.3 mg/dL (0.2-1.0); Calcium 8.4 mg/dL (8.5-10.1); Potassium 3.7 mmol/L (3.5-5.1); Total Protein 6.8 g/dL (6.4-8.2)
[2017-11-08] MEDS: FAMOTIDINE 20 MG TAB PO SCH ×2 (09:21→21:56)
[2017-11-08] MEDS: ENOXAPARIN SOD 40 MG/0.4 ML SYRINGE SC SCH (09:21)
[2017-11-08] MEDS: PRASUGREL HCL 10 MG TAB PO SCH (09:21)
[2017-11-08] MEDS: ASPirin 81 mg TAB PO SCH (09:22)
[2017-11-08] MEDS: AMIODARONE HCL 200 MG TAB PO SCH ×2 (09:22→21:55)
[2017-11-08] MEDS: CARVEDILOL 12.5 MG TAB PO SCH ×3 (09:23→21:59)
[2017-11-08] MEDS: ISOSORBIDE MONONITRATE 60 MG TAB PO SCH ×2 (09:23→09:28)
[2017-11-08] MEDS: SPIRONOLACTONE 25 MG TAB PO SCH (09:23)
[2017-11-08] MEDS: KETOROLAC TROMETH 30 MG/ML 1ML VIAL IV PRN ×2 (14:07→20:44)
[2017-11-08 14:55] LABS: Urine Bacteria NONE SEEN /hpf (None Seen); Urine Blood Negative /uL (Negative); Urine Mucus FEW (None Seen); Urine Specific Gravity 1.038 (1.001-1.035); Urine WBC 1 /hpf (0 - 3)
[2017-11-08] MEDS: TAMSULOSIN HYDROCHLORIDE 0.4 MG CAP PO SCH (17:56)
[2017-11-09] MEDS: KETOROLAC TROMETH 30 MG/ML 1ML VIAL IV PRN ×3 (03:02→15:44)
[2017-11-09 05:15] VITALS: BP 123/75
[2017-11-09] MEDS: ACCU-CHEK COMFORT CURVE STRIP VI SCH ×3 (06:02→17:59)
[2017-11-09] MEDS: InsuLIN REG 1unit/0.01ml Soln (100units/ml) SC SCH ×3 (06:03→17:59)
[2017-11-09] MEDS: GABAPENTIN 300 MG CAP PO SCH ×2 (06:03→14:07)
[2017-11-09] MEDS: HYDROcodone-ACET 5/325MG TAB PO PRN (06:04)
[2017-11-09 08:00] VITALS: BP 114/66
[2017-11-09 09:00] VITALS: BP 114/66
[2017-11-09] MEDS: FAMOTIDINE 20 MG TAB PO SCH (09:15)
[2017-11-09] MEDS: PRASUGREL HCL 10 MG TAB PO SCH (09:16)
[2017-11-09] MEDS: ENOXAPARIN SOD 40 MG/0.4 ML SYRINGE SC SCH (09:16)
[2017-11-09] MEDS: SPIRONOLACTONE 25 MG TAB PO SCH (09:16)
[2017-11-09] MEDS: ASPirin 81 mg TAB PO SCH (09:16)
[2017-11-09] MEDS: AMIODARONE HCL 200 MG TAB PO SCH (09:16)
[2017-11-09] MEDS: ISOSORBIDE MONONITRATE 60 MG TAB PO SCH (09:16)
[2017-11-09] MEDS: CARVEDILOL 12.5 MG TAB PO SCH (09:17)
[2017-11-09 13:00] VITALS: BP 120/64
[2017-11-09 17:00] VITALS: BP 119/60
[2017-11-09] MEDS: TAMSULOSIN HYDROCHLORIDE 0.4 MG CAP PO SCH (17:58)
[2017-11-09 20:00] VITALS: BP 121/72
[2017-11-09] MEDS ORDERED: HYDROcodone-ACET 10/325MG TAB PO PRN (21:30)
[2017-11-09] MEDS ORDERED: MORPHINE SULF 30 mg ER tab PO SCH ×2 (22:00)
== END 2017-11-09 22:15 | disposition left against medical advice (07) | DRG 204 ==
LOC: ER 17:01 → EDBD 17:01 → TELE 17:02 → TELE-CENTR 23:00
PROVIDERS: ADMIT Nurse Practitioner; ATTEND Internal Medicine
DX: R55 Syncope and collapse (principal); I11.0 Hypertensive heart disease with heart failure; I50.40 Unspecified combined systolic (congestive) and diastolic (congestive) heart failure; E11.65 Type 2 diabetes mellitus with hyperglycemia; E44.1 Mild protein-calorie malnutrition; Z68.42 Body mass index [BMI] 45.0-49.9, adult; E66.01 Morbid (severe) obesity due to excess calories; S00.83XA Contusion of other part of head, initial encounter; S80.01XA Contusion of right knee, initial encounter; S80.02XA Contusion of left knee, initial encounter; E78.5 Hyperlipidemia, unspecified; M19.90 Unspecified osteoarthritis, unspecified site; W10.8XXA Fall (on) (from) other stairs and steps, initial encounter; Y93.01 Activity, walking, marching and hiking; G47.00 Insomnia, unspecified; S00.03XA Contusion of scalp, initial encounter; I25.5 Ischemic cardiomyopathy; I25.10 Atherosclerotic heart disease of native coronary artery without angina pectoris; I25.2 Old myocardial infarction; Z82.49 Family history of ischemic heart disease and other diseases of the circulatory system; Z83.3 Family history of diabetes mellitus; Z23 Encounter for immunization; Z87.11 Personal history of peptic ulcer disease; Z87.891 Personal history of nicotine dependence; Z95.1 Presence of aortocoronary bypass graft; Z95.810 Presence of automatic (implantable) cardiac defibrillator; Z80.8 Family history of malignant neoplasm of other organs or systems; Y92.89 Other specified places as the place of occurrence of the external cause; Y99.8 Other external cause status; Z88.1 Allergy status to other antibiotic agents; Z88.8 Allergy status to other drugs, medicaments and biological substances; Z79.899 Other long term (current) drug therapy
CPT/HCPCS: 36415; 70450; 70486; 71045; 72125; 80053; 81001; 82962; 83036; 83735; 84484; 85025; 85379; 85610; 85730; 87081; 90471; 90715; 93005; 94761; 96374; 96375; J1815; J1885; J2405

== ENCOUNTER 2017-11-09 22:47 | Emergency (ER) | payer MEDICAID ==
[~2017-11-09] VITALS: Ht 177.8 cm; Wt 114.8 kg
[2017-11-10 05:31] VITALS: BP 113/62
== END 2017-11-10 08:31 | disposition left against medical advice (07) ==
LOC: ER 22:47
DX: G89.29 Other chronic pain (principal); M54.5 Low back pain; R06.02 Shortness of breath; M19.90 Unspecified osteoarthritis, unspecified site; I50.9 Heart failure, unspecified; E11.9 Type 2 diabetes mellitus without complications; E78.5 Hyperlipidemia, unspecified; I11.0 Hypertensive heart disease with heart failure; I25.810 Atherosclerosis of coronary artery bypass graft(s) without angina pectoris; E11.40 Type 2 diabetes mellitus with diabetic neuropathy, unspecified; F17.210 Nicotine dependence, cigarettes, uncomplicated; Z95.1 Presence of aortocoronary bypass graft; Z88.1 Allergy status to other antibiotic agents; Z79.899 Other long term (current) drug therapy; I25.10 Atherosclerotic heart disease of native coronary artery without angina pectoris; Z95.0 Presence of cardiac pacemaker
CPT/HCPCS: 72131

== ENCOUNTER 2017-12-22 10:28 | Inpatient (IN) | payer MEDICAID ==
[~2017-12-22] VITALS: Ht 177.8 cm; Wt 127.3 kg
[2017-12-22] MEDS ORDERED: NITROGLYCERIN 0.4 MG SL TAB SL ONE ×2 (11:00→13:00)
[2017-12-22 11:05] LABS: Basophils # (auto) 0 uL; Basophils % (auto) 0.8 % (0.0-2.0); Eosinophils # (auto) 0 uL; Eosinophils % (auto) 1.1 % (0.0-7.0); Lymphocytes # (auto) 1.5 uL; Lymphocytes % (auto) 36.3 % (10.0-50.0); Mean Corpuscular Hemoglobin 29.5 pg (28.0-32.0); Mean Corpuscular Hgb Conc. 33.2 g/dL (32.0-36.0); Mean Corpuscular Volume 88.9 fL (80.0-100.0); Monocytes # (auto) 0.3 uL; Neutrophils # (auto) 2.4 uL; Neutrophils % (auto) 55.8 % (37.0-80.0); Nucleated Red Blood Cells % 0.2 %; Platelet Count (auto) 197 10^3/uL (140-450); Red Blood Cells 5.07 10^6/uL (4.5-5.90); Red Cell Distribution Width 15.2 % (11.8-14.3); White Blood Cell 4.3 10^3/uL (4.4-10.8)
[2017-12-22 11:25] LABS: Albumin 3.1 g/dL (3.4-5.0); Bilirubin, Total 0.4 mg/dL (0.2-1.0); Calcium 8.1 mg/dL (8.5-10.1); Potassium 3.9 mmol/L (3.5-5.1); Total Protein 6.9 g/dL (6.4-8.2)
[2017-12-22] MEDS ORDERED: ONDANSETRON HCL 4 MG/2 ML VIAL IV ONE (13:00)
[2017-12-22] MEDS ORDERED: MORPHINE SULF INJ 2 MG/ML SYRINGE 1ML IV ONE (13:00)
[2017-12-22] MEDS ORDERED: LORazepam 0.5 MG TAB PO PRN (13:30)
[2017-12-22] MEDS ORDERED: MORPHINE SULF INJ 2 MG/ML SYRINGE 1ML IV PRN (13:30)
[2017-12-22] MEDS ORDERED: DEXTROSE (50%) 50ML SYRG IV PRN (13:30)
[2017-12-22] MEDS ORDERED: NITROGLYCERIN 0.4 MG SL TAB SL PRN (13:30)
[2017-12-22] MEDS ORDERED: PROMETHAZINE HCL 25 MG/ML 1ML IV PRN (13:30)
[2017-12-22] MEDS ORDERED: ACETAMINOPHEN 500 MG TAB PO PRN (13:30)
[2017-12-22] MEDS ORDERED: TEMAZEPAM 15 MG CAP PO PRN (13:30)
[2017-12-22] MEDS: GABAPENTIN 400 MG CAP PO SCH ×2 (14:25→21:04)
[2017-12-22] MEDS: InsuLIN REG 1unit/0.01ml Soln (100units/ml) SC SCH ×2 (16:23→20:00)
[2017-12-22] MEDS: ACCU-CHEK COMFORT CURVE STRIP VI SCH ×2 (16:23→20:00)
[2017-12-22] MEDS: glipiZIDE 5 MG TAB PO SCH (17:10)
[2017-12-22 20:47] VITALS: BP 103/68
[2017-12-22] MEDS: INSULIN LANTUS (GLARGINE) 1 /0.01ml (100units/ml) SC SCH (21:03)
[2017-12-22] MEDS: MORPHINE SULF 30 mg ER tab PO SCH (21:04)
[2017-12-22] MEDS: CALCIUM CARB 500 MG CHEW TAB PO SCH (21:05)
[2017-12-22 22:00] VITALS: BP 103/68
[2017-12-22] MEDS ORDERED: TROLAMINE SALICYLATE 10% TOP PRN (22:00)
[2017-12-22] MEDS: AMIODARONE HCL 200 MG TAB PO SCH (22:08)
[2017-12-22] MEDS: CARVEDILOL 12.5 MG TAB PO SCH (22:08)
[2017-12-23] VITALS (7 sets, daily range): BP systolic 86–110; BP diastolic 52–72
[2017-12-23] MEDS: HYDROcodone-ACET 5/325MG TAB PO PRN (00:07)
[2017-12-23] MEDS: ACCU-CHEK COMFORT CURVE STRIP VI SCH ×6 (00:27→20:35)
[2017-12-23] MEDS: InsuLIN REG 1unit/0.01ml Soln (100units/ml) SC SCH ×6 (03:52→20:35)
[2017-12-23 04:05] LABS: Urine Bacteria NONE SEEN /hpf (None Seen); Urine Blood Negative /uL (Negative); Urine Specific Gravity 1.024 (1.001-1.035); Urine WBC <1 /hpf (0 - 3)
[2017-12-23 04:09] LABS: Alcohol, Urine < 3.0 mg/dL (0-5); Amphetamine Screen, Urine NEGATIVE (NEGATIVE); Barbiturate Scree,Urine NEGATIVE (NEGATIVE); Benzodiazephine Screen, Urine NEGATIVE (NEGATIVE); Cannabinoid Screen, Urine NEGATIVE (NEGATIVE); Cocaine Screen, Urine NEGATIVE (NEGATIVE); Opiate Scree,Urine POSITIVE (NEGATIVE); Phencyclidine Screen, Urine NEGATIVE (NEGATIVE)
[2017-12-23] MEDS ORDERED: PNEUMOCOCCAL VACC POLYS 25 MCG/0.5 ML VIAL IM ONE (06:00)
[2017-12-23] MEDS: GABAPENTIN 400 MG CAP PO SCH ×3 (06:12→22:19)
[2017-12-23 06:20] LABS: Cholesterol 258 mg/dL (< 200); HDL Cholesterol 38 mg/dL (40-59); LDL Cholesterol 179 mg/dL (< 100); Triglycerides 277 mg/dL (< 150)
[2017-12-23] MEDS: glipiZIDE 5 MG TAB PO SCH ×2 (06:24→17:56)
[2017-12-23] MEDS: MORPHINE SULF INJ 2 MG/ML SYRINGE 1ML IV PRN ×2 (09:04→20:35)
[2017-12-23] MEDS: FENOFIBRATE 40 MG PO SCH (10:00)
[2017-12-23] MEDS: SITAGLIPTIN PHOSPHATE 25 MG PO SCH (10:00)
[2017-12-23] MEDS ORDERED: FUROSEMIDE 40 MG/4 ML VIAL IV SCH (10:00)
[2017-12-23] MEDS ORDERED: ENALAPRIL MALEATE 2.5 MG TAB PO SCH (10:00)
[2017-12-23] MEDS ORDERED: ASPirin 81 mg TAB PO SCH (10:00)
[2017-12-23] MEDS: CHOLECALCIFEROL (VITD3) 1,000 UNIT TAB PO SCH (10:17)
[2017-12-23] MEDS: POTASSIUM CHL 20 Meq TABLET PO SCH (10:17)
[2017-12-23] MEDS: PANTOPRAZOLE 40 MG TAB PO SCH (10:17)
[2017-12-23] MEDS: TAMSULOSIN HYDROCHLORIDE 0.4 MG CAP PO SCH (10:18)
[2017-12-23] MEDS: AMIODARONE HCL 200 MG TAB PO SCH ×2 (10:18→22:18)
[2017-12-23] MEDS: ASPirin-EC 81 mg tab PO SCH (10:19)
[2017-12-23] MEDS: CALCIUM CARB 500 MG CHEW TAB PO SCH ×2 (10:19→22:19)
[2017-12-23] MEDS: PRASUGREL HCL 10 MG TAB PO SCH (10:19)
[2017-12-23] MEDS: ENOXAPARIN SOD 40 MG/0.4 ML SYRINGE SC SCH (10:20)
[2017-12-23] MEDS: CARVEDILOL 12.5 MG TAB PO SCH ×2 (12:31→22:18)
[2017-12-23] MEDS: SPIRONOLACTONE 25 MG TAB PO SCH (12:32)
[2017-12-23] MEDS: MORPHINE SULF 30 mg ER tab PO SCH ×2 (12:33→22:19)
[2017-12-23] MEDS: ISOSORBIDE MONONITRATE 60 MG TAB PO SCH (12:45)
[2017-12-23] MEDS: INSULIN LANTUS (GLARGINE) 1 /0.01ml (100units/ml) SC SCH (22:19)
[2017-12-24] MEDS: ACCU-CHEK COMFORT CURVE STRIP VI SCH ×6 (00:22→22:01)
[2017-12-24] MEDS ORDERED: PANTOPRAZOLE 40 MG/10 ML VIAL IV ONE (04:00)
[2017-12-24] MEDS: InsuLIN REG 1unit/0.01ml Soln (100units/ml) SC SCH ×6 (04:02→22:02)
[2017-12-24 05:34] VITALS: BP 92/43
[2017-12-24] MEDS: GABAPENTIN 400 MG CAP PO SCH ×3 (06:11→21:59)
[2017-12-24] MEDS: glipiZIDE 5 MG TAB PO SCH ×2 (06:12→17:35)
[2017-12-24] MEDS: HYDROcodone-ACET 5/325MG TAB PO PRN ×2 (06:12→17:35)
[2017-12-24 06:46] LABS: Calcium 8.2 mg/dL (8.5-10.1); Magnesium 1.9 mg/dL (1.6-2.6); Potassium 3.8 mmol/L (3.5-5.1)
[2017-12-24] MEDS: MORPHINE SULF INJ 2 MG/ML SYRINGE 1ML IV PRN ×2 (08:26→19:07)
[2017-12-24 09:00] VITALS: BP 111/65
[2017-12-24] MEDS: ISOSORBIDE MONONITRATE 60 MG TAB PO SCH (10:00)
[2017-12-24] MEDS: SITAGLIPTIN PHOSPHATE 25 MG PO SCH (10:00)
[2017-12-24] MEDS ORDERED: MAGNESIUM SULFATE 1GM/100ML 100 ML IV ONE (10:00)
[2017-12-24] MEDS: AMIODARONE HCL 200 MG TAB PO SCH ×2 (10:00→22:00)
[2017-12-24] MEDS: FENOFIBRATE 40 MG PO SCH (10:00)
[2017-12-24] MEDS ORDERED: DEXTROSE (50%) 50ML SYRG IV PRN (10:00)
[2017-12-24] MEDS: SPIRONOLACTONE 25 MG TAB PO SCH (10:00)
[2017-12-24] MEDS: PRASUGREL HCL 10 MG TAB PO SCH (10:55)
[2017-12-24] MEDS: ASPirin-EC 81 mg tab PO SCH (10:55)
[2017-12-24] MEDS: ENOXAPARIN SOD 40 MG/0.4 ML SYRINGE SC SCH (10:55)
[2017-12-24] MEDS: CALCIUM CARB 500 MG CHEW TAB PO SCH ×2 (10:55→22:00)
[2017-12-24] MEDS: CHOLECALCIFEROL (VITD3) 1,000 UNIT TAB PO SCH (10:55)
[2017-12-24] MEDS: TAMSULOSIN HYDROCHLORIDE 0.4 MG CAP PO SCH (10:55)
[2017-12-24] MEDS: POTASSIUM CHL 20 Meq TABLET PO SCH (10:56)
[2017-12-24] MEDS: PANTOPRAZOLE 40 MG TAB PO SCH (10:57)
[2017-12-24] MEDS: MORPHINE SULF 30 mg ER tab PO SCH ×3 (10:57→23:00)
[2017-12-24] MEDS: CARVEDILOL 3.125 MG TAB PO SCH ×2 (10:58→22:01)
[2017-12-24] MEDS: DOCUSATE SOD 100 MG CAP PO SCH ×2 (12:00→21:59)
[2017-12-24 17:00] VITALS: BP 118/79
[2017-12-24 22:00] VITALS: BP 112/84
[2017-12-24] MEDS: INSULIN LANTUS (GLARGINE) 1 /0.01ml (100units/ml) SC SCH (22:01)
[2017-12-25] MEDS: HYDROcodone-ACET 5/325MG TAB PO PRN ×2 (00:16→18:06)
[2017-12-25 05:15] VITALS: BP 94/52
[2017-12-25] MEDS: GABAPENTIN 400 MG CAP PO SCH ×3 (05:59→22:17)
[2017-12-25] MEDS: MORPHINE SULF INJ 2 MG/ML SYRINGE 1ML IV PRN ×2 (06:10→11:08)
[2017-12-25] MEDS: ACCU-CHEK COMFORT CURVE STRIP VI SCH ×3 (06:36→22:19)
[2017-12-25] MEDS: InsuLIN REG 1unit/0.01ml Soln (100units/ml) SC SCH ×5 (06:37→22:17)
[2017-12-25 06:41] LABS: Basophils # (auto) 0 uL; Basophils % (auto) 0.5 % (0.0-2.0); Eosinophils # (auto) 0.1 uL; Eosinophils % (auto) 1.1 % (0.0-7.0); Hematocrit 43.8 % (41.0-53.0); Hemoglobin 15.1 g/dL (13.5-17.5); Lymphocytes # (auto) 1.8 uL; Lymphocytes % (auto) 39.2 % (10.0-50.0); Mean Corpuscular Hemoglobin 30.9 pg (28.0-32.0); Mean Corpuscular Hgb Conc. 34.5 g/dL (32.0-36.0); Mean Corpuscular Volume 89.6 fL (80.0-100.0); Monocytes # (auto) 0.4 uL; Monocytes % (auto) 8.3 % (0.0-12.0); Neutrophils # (auto) 2.3 uL; Neutrophils % (auto) 50.9 % (37.0-80.0); Nucleated Red Blood Cells % 0.2 %; Platelet Count (auto) 191 10^3/uL (140-450); Red Blood Cells 4.89 10^6/uL (4.5-5.90); White Blood Cell 4.5 10^3/uL (4.4-10.8)
[2017-12-25 06:50] LABS: INR 0.94 (0.9-1.15); Partial Thromboplastin Time 25.2 sec (23.78-33.04); Prothrombin Time 10.1 sec (9.27-12.13)
[2017-12-25] MEDS: glipiZIDE 5 MG TAB PO SCH ×2 (06:51→17:56)
[2017-12-25 06:59] LABS: BUN/Creatinine Ratio 15.3; Calcium 8.3 mg/dL (8.5-10.1); Magnesium 2.3 mg/dL (1.6-2.6); Potassium 3.8 mmol/L (3.5-5.1)
[2017-12-25] MEDS: SITAGLIPTIN PHOSPHATE 25 MG PO SCH (10:00)
[2017-12-25] MEDS: FENOFIBRATE 40 MG PO SCH (10:00)
[2017-12-25] MEDS: CARVEDILOL 3.125 MG TAB PO SCH ×2 (10:00→22:00)
[2017-12-25] MEDS: ISOSORBIDE MONONITRATE 60 MG TAB PO SCH (10:00)
[2017-12-25] MEDS: SPIRONOLACTONE 25 MG TAB PO SCH (10:00)
[2017-12-25] MEDS: MORPHINE SULF 30 mg ER tab PO SCH ×2 (10:30→22:16)
[2017-12-25] MEDS: ASPirin-EC 81 mg tab PO SCH (10:56)
[2017-12-25] MEDS: DOCUSATE SOD 100 MG CAP PO SCH ×2 (10:56→22:17)
[2017-12-25] MEDS: PANTOPRAZOLE 40 MG TAB PO SCH (10:56)
[2017-12-25] MEDS: CHOLECALCIFEROL (VITD3) 1,000 UNIT TAB PO SCH (10:56)
[2017-12-25] MEDS: POTASSIUM CHL 20 Meq TABLET PO SCH (10:56)
[2017-12-25] MEDS: CALCIUM CARB 500 MG CHEW TAB PO SCH ×2 (10:56→22:17)
[2017-12-25] MEDS: AMIODARONE HCL 200 MG TAB PO SCH ×2 (10:56→22:37)
[2017-12-25] MEDS: TAMSULOSIN HYDROCHLORIDE 0.4 MG CAP PO SCH (10:57)
[2017-12-25] MEDS: ENOXAPARIN SOD 40 MG/0.4 ML SYRINGE SC SCH (10:58)
[2017-12-25] MEDS: PRASUGREL HCL 10 MG TAB PO SCH (11:06)
[2017-12-25] MEDS ORDERED: DEXTROSE (50%) 50ML SYRG IV PRN (11:45)
[2017-12-25 13:00] VITALS: BP 133/85
[2017-12-25 22:00] VITALS: BP 97/46
[2017-12-25] MEDS: INSULIN LANTUS (GLARGINE) 1 /0.01ml (100units/ml) SC SCH (22:18)
[2017-12-26 05:00] VITALS: BP 110/63
[2017-12-26] MEDS: HYDROcodone-ACET 5/325MG TAB PO PRN ×2 (05:03→20:12)
[2017-12-26] MEDS: GABAPENTIN 400 MG CAP PO SCH ×3 (05:45→22:08)
[2017-12-26] MEDS: ACCU-CHEK COMFORT CURVE STRIP VI SCH ×4 (06:25→22:16)
[2017-12-26] MEDS: glipiZIDE 5 MG TAB PO SCH ×2 (06:29→17:00)
[2017-12-26] MEDS: InsuLIN REG 1unit/0.01ml Soln (100units/ml) SC SCH ×5 (06:31→22:32)
[2017-12-26] MEDS ORDERED: POTASSIUM CHL 20 Meq TABLET PO ONE ×2 (09:30→10:45)
[2017-12-26 09:38] VITALS: BP 115/60
[2017-12-26] MEDS: CARVEDILOL 3.125 MG TAB PO SCH ×2 (10:00→22:00)
[2017-12-26] MEDS: ENOXAPARIN SOD 40 MG/0.4 ML SYRINGE SC SCH (10:00)
[2017-12-26] MEDS: FENOFIBRATE 40 MG PO SCH (10:00)
[2017-12-26] MEDS: SITAGLIPTIN PHOSPHATE 25 MG PO SCH (10:00)
[2017-12-26] MEDS: CHOLECALCIFEROL (VITD3) 1,000 UNIT TAB PO SCH (10:15)
[2017-12-26] MEDS: CALCIUM CARB 500 MG CHEW TAB PO SCH ×2 (10:16→22:12)
[2017-12-26] MEDS: SPIRONOLACTONE 25 MG TAB PO SCH (10:16)
[2017-12-26] MEDS: ASPirin-EC 81 mg tab PO SCH (10:16)
[2017-12-26] MEDS: ISOSORBIDE MONONITRATE 60 MG TAB PO SCH (10:16)
[2017-12-26] MEDS: POTASSIUM CHL 20 Meq TABLET PO SCH (10:16)
[2017-12-26] MEDS: TAMSULOSIN HYDROCHLORIDE 0.4 MG CAP PO SCH (10:17)
[2017-12-26] MEDS: PANTOPRAZOLE 40 MG TAB PO SCH (10:17)
[2017-12-26] MEDS: MORPHINE SULF 30 mg ER tab PO SCH ×2 (10:18→22:10)
[2017-12-26] MEDS: AMIODARONE HCL 200 MG TAB PO SCH ×2 (10:18→22:11)
[2017-12-26] MEDS: DOCUSATE SOD 100 MG CAP PO SCH ×2 (10:18→22:11)
[2017-12-26] MEDS ORDERED: CAR3125T PO (10:42)
[2017-12-26] MEDS: PRASUGREL HCL 10 MG TAB PO SCH (10:56)
[2017-12-26 13:38] VITALS: BP 91/54
[2017-12-26] MEDS ORDERED: IOHEXOL 350 MG/ML 100ML IJ ONE ×2 (15:29→16:15)
[2017-12-26] MEDS ORDERED: LIDOCAINE 2%HCL (LOCAL ANESTH.) INJ 10ml MDV ONE (15:29)
[2017-12-26] MEDS ORDERED: fentaNYL CITRATE 100 MCG/2 ML VL ONE (15:30)
[2017-12-26] MEDS ORDERED: ANGIOMAX 250 MG VIAL IV ONE (15:30)
[2017-12-26] MEDS ORDERED: SODIUM CHL 0.9% 50 ML ONE (15:30)
[2017-12-26] MEDS ORDERED: MIDAZOLAM HCL 1MG/1ML-2 ML VIAL ONE (15:30)
[2017-12-26 17:20] VITALS: BP 93/62
[2017-12-26 20:00] VITALS: BP 103/61
[2017-12-26 21:54] VITALS: BP 103/61
[2017-12-26] MEDS: SODIUM CHLOR 0.9% PF (SALINE LOCK) 10ML VIAL/SYR IV SCH (22:11)
[2017-12-26] MEDS: INSULIN LANTUS (GLARGINE) 1 /0.01ml (100units/ml) SC SCH (22:33)
[2017-12-27] MEDS: HYDROcodone-ACET 5/325MG TAB PO PRN (03:19)
[2017-12-27 05:00] VITALS: BP 100/62
[2017-12-27] MEDS: InsuLIN REG 1unit/0.01ml Soln (100units/ml) SC SCH (05:57)
[2017-12-27] MEDS: ACCU-CHEK COMFORT CURVE STRIP VI SCH (05:58)
[2017-12-27] MEDS: SODIUM CHLOR 0.9% PF (SALINE LOCK) 10ML VIAL/SYR IV SCH (05:58)
[2017-12-27] MEDS: GABAPENTIN 400 MG CAP PO SCH (06:23)
[2017-12-27] MEDS: glipiZIDE 5 MG TAB PO SCH (06:24)
[2017-12-27 07:29] VITALS: BP 113/95
== END 2017-12-27 12:00 | disposition home or self-care (01) | DRG 175 ==
LOC: EDBD 10:28 → ER 10:28 → TELE 10:29 → TELE-WESTW 20:40
PROVIDERS: ADMIT Internal Medicine; ATTEND Internal Medicine
PROC: 4B02XTZ Measurement of Cardiac Defibrillator, External Approach (ICD-10-PCS; 2017-12-22)
PROC: 02703ZZ Dilation of Coronary Artery, One Artery, Percutaneous Approach (ICD-10-PCS; principal; 2017-12-26)
PROC: 4A023N7 Measurement of Cardiac Sampling and Pressure, Left Heart, Percutaneous Approach (ICD-10-PCS; 2017-12-26)
PROC: B2111ZZ Fluoroscopy of Multiple Coronary Arteries using Low Osmolar Contrast (ICD-10-PCS; 2017-12-26)
DX: I11.0 Hypertensive heart disease with heart failure (principal); I47.2 Ventricular tachycardia; R45.851 Suicidal ideations; E11.65 Type 2 diabetes mellitus with hyperglycemia; I25.10 Atherosclerotic heart disease of native coronary artery without angina pectoris; I50.23 Acute on chronic systolic (congestive) heart failure; E66.01 Morbid (severe) obesity due to excess calories; I25.2 Old myocardial infarction; Z82.49 Family history of ischemic heart disease and other diseases of the circulatory system; M19.90 Unspecified osteoarthritis, unspecified site; I25.5 Ischemic cardiomyopathy; E44.1 Mild protein-calorie malnutrition; E78.5 Hyperlipidemia, unspecified; E03.9 Hypothyroidism, unspecified; F43.20 Adjustment disorder, unspecified; Z83.3 Family history of diabetes mellitus; Z95.1 Presence of aortocoronary bypass graft; Z86.711 Personal history of pulmonary embolism; Z87.11 Personal history of peptic ulcer disease; Z87.891 Personal history of nicotine dependence; Z91.19 Patient's noncompliance with other medical treatment and regimen; Z95.5 Presence of coronary angioplasty implant and graft; Z95.810 Presence of automatic (implantable) cardiac defibrillator; Z23 Encounter for immunization; Z79.899 Other long term (current) drug therapy; Z79.82 Long term (current) use of aspirin; Z79.4 Long term (current) use of insulin; Z88.1 Allergy status to other antibiotic agents; Z88.8 Allergy status to other drugs, medicaments and biological substances; Z68.41 Body mass index [BMI] 40.0-44.9, adult
CPT/HCPCS: 36415; 71045; 80048; 80053; 80061; 80307; 81001; 82550; 82962; 83036; 83735; 83880; 84132; 84484; 85025; 85379; 85610; 85652; 85730; 86141; 92920; 93005; 93458; 96374; 96375; 96376; 99152; A6257; C1887; C9113; J1815; J2001; J2250; J2405

== ENCOUNTER 2018-05-13 10:58 | Emergency (ER) | payer MEDICARE, MEDICAID ==
[~2018-05-13] VITALS: Ht 177.8 cm; Wt 114.8 kg
[~2018-05-13 10:58] MED LIST changes: -CAR125T PO; +CAR3125T PO; +DOCU-94 PO; -METF-489 PO; +MEX150C PO; -PRAS10TA6 PO; +SPIR25TA8 PO; -SPIR25TA89 PO; +WARF2TAB55 PO
[2018-05-13 11:25] VITALS: BP 103/63
[2018-05-13] MEDS ORDERED: KETOROLAC TROMETH 60MG/2ML VIAL IM ONE (13:00)
== END 2018-05-13 13:38 | disposition home or self-care (01) ==
LOC: ER 10:58
DX: S40.011A Contusion of right shoulder, initial encounter (principal); M54.2 Cervicalgia; R51 Headache; M19.90 Unspecified osteoarthritis, unspecified site; I25.810 Atherosclerosis of coronary artery bypass graft(s) without angina pectoris; J44.9 Chronic obstructive pulmonary disease, unspecified; E11.9 Type 2 diabetes mellitus without complications; E78.5 Hyperlipidemia, unspecified; I25.2 Old myocardial infarction; I11.0 Hypertensive heart disease with heart failure; I50.9 Heart failure, unspecified; Z95.1 Presence of aortocoronary bypass graft; Z95.0 Presence of cardiac pacemaker; Z98.61 Coronary angioplasty status; Z88.0 Allergy status to penicillin; Z88.8 Allergy status to other drugs, medicaments and biological substances; Z79.01 Long term (current) use of anticoagulants; Z79.82 Long term (current) use of aspirin; Z79.4 Long term (current) use of insulin; Z79.899 Other long term (current) drug therapy; Z87.891 Personal history of nicotine dependence; W18.39XA Other fall on same level, initial encounter; Y93.89 Activity, other specified; Y99.8 Other external cause status; Y92.89 Other specified places as the place of occurrence of the external cause
CPT/HCPCS: 73030; 82962; 96372; 99283; J1885

== ENCOUNTER 2018-06-23 13:40 | Inpatient (IN) | payer MEDICARE, MEDICAID | END 2018-06-28 14:26 | disposition home or self-care (01) | LOC: TELE-CENTR 06-26 01:03 → ER 13:40 → TELE 17:27 → TELE-CENTR 22:10 | PROC: B2141ZZ Fluoroscopy of Right Heart using Low Osmolar Contrast (ICD-10-PCS; principal; ~2018-06-23) | DX: I11.0 Hypertensive heart disease with heart failure (principal); I24.9 Acute ischemic heart disease, unspecified; D68.59 Other primary thrombophilia; I50.43 Acute on chronic combined systolic (congestive) and diastolic (congestive) heart failure; I25.119 Atherosclerotic heart disease of native coronary artery with unspecified angina pectoris; I25.5 Ischemic cardiomyopathy; G47.30 Sleep apnea, unspecified; E66.01 Morbid (severe) obesity due to excess calories; E11.65 Type 2 diabetes mellitus with hyperglycemia; Z95.1 Presence of aortocoronary bypass graft; Z95.5 Presence of coronary angioplasty implant and graft ==

== ENCOUNTER → 2018-07-24 | Outpatient (CLI) | payer MEDICAID, MEDICARE ==
[~2018-07-24] VITALS: Ht 177.8 cm; Wt 122.9 kg
[~2018-07-24] MED LIST changes: +ADENOSINE 103 MG in GIVE UN-DILUTED 0 ML IV ONE; +ADENOSINE 90 MG/30 ML INJ IV ONE; +APIX5TAB PO; -CAR3125T PO; +CARV12.544 PO; +FURO40TA PO; -MEX150C PO; -MORP30TA PO; -TROL10LO EX
[2018-07-24 10:46] VITALS: BP_SYST 114; BP_SYST 117; BP_DIAS 71; BP_DIAS 74
--- NOTE | 2018-07-24 10:46 | NUR ---
EECP Tx# 1 This is going to be patient's 1st day of EECP Tx's. Information has been provided to the patient. EKG Completed. Patient has a Hx of: DIABETES PTCA STENT CABG First BP check on his Left arm is at 117/71 with a heart rate of 66bpm. Patient denies any symptoms or discomfort at this time. Patient EECP pressure will be increase if tolerable. Patient is doing well at this time.EECP pressure is at 120.Monitor shows Atrial-paced complexes with good pleth valves. Patient denies any symptoms or discomfort at this time. Last BP and HR check on his Left arm is at 114/74 with a heart rate of 65bpm. Patient denies any symptoms or discomfort at this time. Patient has completed Tx# 1.
== END | disposition home or self-care (01) ==
LOC: Rad HDHVI 09:43
PROVIDERS: ATTEND Internal Medicine Cardiovascular Disease
DX: I25.10 Atherosclerotic heart disease of native coronary artery without angina pectoris (principal); I25.708 Atherosclerosis of coronary artery bypass graft(s), unspecified, with other forms of angina pectoris; I11.0 Hypertensive heart disease with heart failure; I50.23 Acute on chronic systolic (congestive) heart failure; E11.9 Type 2 diabetes mellitus without complications; I25.5 Ischemic cardiomyopathy; Z95.1 Presence of aortocoronary bypass graft; Z98.61 Coronary angioplasty status
CPT/HCPCS: 78452; 93005; 96374; 96375; A9500; G0166; J0153

== ENCOUNTER → 2018-07-25 | Outpatient (CLI) | payer MEDICAID, MEDICARE ==
[~2018-07-25] MED LIST changes: -ADENOSINE 103 MG in GIVE UN-DILUTED 0 ML IV ONE; -ADENOSINE 90 MG/30 ML INJ IV ONE; +DOBUTamine 1000MCG/ML 250 ML IV ONE
--- NOTE | 2018-07-25 09:15 | NUR ---
IV insertion IV access obtained, via clean sterile technique by inserting 22 gauge catheter at after 1 attempt(s). IV secured properly. No trauma to site. Patient tolerated procedure well.
[2018-07-25 09:35] VITALS: BP 91/65
[2018-07-25 09:45] VITALS: BP 105/63
[2018-07-25 10:00] VITALS: BP 107/53
[2018-07-25 10:15] VITALS: BP 114/58
[2018-07-25 10:45] VITALS: BP 109/61
[2018-07-25 11:45] VITALS: BP 113/65
--- NOTE | 2018-07-25 11:45 | NUR ---
[facility] CLINIC Discharge Instructions See e-MAR for any mediations given with this visit. Patient education given on disease process. Patient verbalized understanding. Previous labs reviewed. Patient discharged in stable condition with after care instructions and follow up appointment ON SATURDAY. NOTE DOBUTAMINE INFUSION [id number] ADMIN BY AMA CAMPOS
== END | disposition home or self-care (01) ==
LOC: CHF HDHVI 08:34
PROVIDERS: ATTEND Internal Medicine Cardiovascular Disease
DX: I13.0 Hypertensive heart and chronic kidney disease with heart failure and stage 1 through stage 4 chronic kidney disease, or unspecified chronic kidney disease (principal); E11.22 Type 2 diabetes mellitus with diabetic chronic kidney disease; I50.42 Chronic combined systolic (congestive) and diastolic (congestive) heart failure; N18.2 Chronic kidney disease, stage 2 (mild); J44.9 Chronic obstructive pulmonary disease, unspecified; I25.10 Atherosclerotic heart disease of native coronary artery without angina pectoris; I48.0 Paroxysmal atrial fibrillation; I25.2 Old myocardial infarction; E11.40 Type 2 diabetes mellitus with diabetic neuropathy, unspecified; E11.51 Type 2 diabetes mellitus with diabetic peripheral angiopathy without gangrene; E11.319 Type 2 diabetes mellitus with unspecified diabetic retinopathy without macular edema; E78.5 Hyperlipidemia, unspecified; E66.01 Morbid (severe) obesity due to excess calories; K21.9 Gastro-esophageal reflux disease without esophagitis; M19.90 Unspecified osteoarthritis, unspecified site; G47.33 Obstructive sleep apnea (adult) (pediatric); G89.4 Chronic pain syndrome; F32.9 Major depressive disorder, single episode, unspecified; F41.9 Anxiety disorder, unspecified; F43.20 Adjustment disorder, unspecified; F11.21 Opioid dependence, in remission; Z95.5 Presence of coronary angioplasty implant and graft; Z95.1 Presence of aortocoronary bypass graft; Z79.899 Other long term (current) drug therapy; Z79.01 Long term (current) use of anticoagulants; Z87.891 Personal history of nicotine dependence; Z79.4 Long term (current) use of insulin; Z79.82 Long term (current) use of aspirin; Z68.38 Body mass index [BMI] 38.0-38.9, adult; Z79.02 Long term (current) use of antithrombotics/antiplatelets; Z95.810 Presence of automatic (implantable) cardiac defibrillator; Z86.711 Personal history of pulmonary embolism
CPT/HCPCS: 93701; 96365; 96366; G0463; J1250

== ENCOUNTER → 2018-07-28 | Outpatient (CLI) | payer MEDICARE, MEDICAID ==
[~2018-07-28] MED LIST changes: -DOBUTamine 1000MCG/ML 250 ML IV ONE
[2018-07-28 10:03] VITALS: BP_SYST 104; BP_SYST 112; BP_DIAS 57; BP_DIAS 79
--- NOTE | 2018-07-28 10:03 | NUR ---
EECP Tx# 2 First BP check on his Right arm is at 104/57 with a heart rate of 66 Patient states he felt Dizziness, Fatigue. We will continue to monitor patient through his Tx if any changes occur. Arginext was taken before coming in to his Tx. 1st Pleth EECP pressure will be increase if tolerable. 2nd pleth at 23 min into Tx patient is tolerating tx pressure at 160 well with no discomfort at this time. Monitor shows Arrhythmias with a heart rate of 64bpm.Patient denies any symptoms or discomfort at this time. 3rd and final pleth at 51 min into Tx.Patient is tolerating Tx pressure at 160 with no discomfort.Patient has 9 min left till his Tx is completed for the day. Last BP and HR check on his Right arm is at 112/79 with a heart rate of 67bpm. Patient at this time denies any symptoms or discomfort.
== END | disposition home or self-care (01) ==
LOC: CHF HDHVI 09:49
PROVIDERS: ATTEND Internal Medicine Cardiovascular Disease
DX: I25.708 Atherosclerosis of coronary artery bypass graft(s), unspecified, with other forms of angina pectoris (principal); I11.0 Hypertensive heart disease with heart failure; I50.23 Acute on chronic systolic (congestive) heart failure; I25.5 Ischemic cardiomyopathy; E11.9 Type 2 diabetes mellitus without complications; Z95.1 Presence of aortocoronary bypass graft; Z98.61 Coronary angioplasty status
CPT/HCPCS: G0166

== ENCOUNTER → 2018-07-29 | Outpatient (CLI) | payer MEDICAID, MEDICARE ==
[2018-07-29] VITALS (8 sets, daily range): BP systolic 83–108; BP diastolic 50–74
[~2018-07-29] MED LIST changes: +DOBUTamine 1000MCG/ML 250 ML IV ONE
--- NOTE | 2018-07-29 08:45 | NUR ---
IV insertion IV access obtained, via clean sterile technique by inserting 22 gauge catheter at after 2 attempt(s). IV secured properly. No trauma to site. Patient tolerated procedure well.
--- NOTE | 2018-07-29 12:00 | NUR ---
IV removal IV DC'd with sterile technique, catheter fully intact. Pressure dressing applied to site. Patient tolerated procedure well.
--- NOTE | 2018-07-29 12:06 | NUR ---
[facility] CLINIC Discharge Instructions See e-MAR for any mediations given with this visit. Patient education given on disease process. Patient verbalized understanding. Previous labs reviewed. Patient discharged in stable condition with after care instructions and follow up appointment ON SATURDAY. NOTE DOBUTAMINE [id number] ADMIN BY AMA CAMPOS
[2018-07-29 12:28] LABS: Basophils # (auto) 0 uL; Basophils % (auto) 0.8 % (0.0-2.0); Eosinophils # (auto) 0.1 uL; Hematocrit 40.4 % (41.0-53.0); Hemoglobin 13.8 g/dL (13.5-17.5); Lymphocytes # (auto) 1.6 uL; Lymphocytes % (auto) 25.6 % (10.0-50.0); Mean Corpuscular Hemoglobin 31.3 pg (28.0-32.0); Mean Corpuscular Hgb Conc. 34.2 g/dL (32.0-36.0); Mean Corpuscular Volume 91.6 fL (80.0-100.0); Monocytes # (auto) 0.4 uL; Neutrophils # (auto) 4.1 uL; Neutrophils % (auto) 66.6 % (37.0-80.0); Nucleated Red Blood Cells % 0.1 %; Platelet Count (auto) 340 10^3/uL (140-450); Red Blood Cells 4.41 10^6/uL (4.5-5.90); Red Cell Distribution Width 14.4 % (11.8-14.3); White Blood Cell 6.1 10^3/uL (4.4-10.8)
[2018-07-29 12:31] LABS: Potassium 3.5 mmol/L (3.5-5.1)
[2018-07-29 12:57] LABS: Albumin 3.2 g/dL (3.4-5.0); BUN/Creatinine Ratio 24.2; Bilirubin, Total 0.5 mg/dL (0.2-1.0); Calcium 8.7 mg/dL (8.5-10.1); Total Protein 7.6 g/dL (6.4-8.2)
== END | disposition home or self-care (01) ==
LOC: CHF HDHVI 08:43
PROVIDERS: ATTEND Internal Medicine Cardiovascular Disease
DX: I13.0 Hypertensive heart and chronic kidney disease with heart failure and stage 1 through stage 4 chronic kidney disease, or unspecified chronic kidney disease (principal); E11.22 Type 2 diabetes mellitus with diabetic chronic kidney disease; I50.42 Chronic combined systolic (congestive) and diastolic (congestive) heart failure; N18.2 Chronic kidney disease, stage 2 (mild); E11.51 Type 2 diabetes mellitus with diabetic peripheral angiopathy without gangrene; E83.40 Disorders of magnesium metabolism, unspecified; D64.9 Anemia, unspecified; I25.10 Atherosclerotic heart disease of native coronary artery without angina pectoris; I48.0 Paroxysmal atrial fibrillation; I25.2 Old myocardial infarction; M19.90 Unspecified osteoarthritis, unspecified site; E11.319 Type 2 diabetes mellitus with unspecified diabetic retinopathy without macular edema; E66.01 Morbid (severe) obesity due to excess calories; G89.4 Chronic pain syndrome; G47.33 Obstructive sleep apnea (adult) (pediatric); J44.9 Chronic obstructive pulmonary disease, unspecified; K21.9 Gastro-esophageal reflux disease without esophagitis; E78.5 Hyperlipidemia, unspecified; F32.9 Major depressive disorder, single episode, unspecified; F41.9 Anxiety disorder, unspecified; F11.21 Opioid dependence, in remission; F43.20 Adjustment disorder, unspecified; Z95.1 Presence of aortocoronary bypass graft; Z79.4 Long term (current) use of insulin; Z79.82 Long term (current) use of aspirin; Z68.38 Body mass index [BMI] 38.0-38.9, adult; Z87.891 Personal history of nicotine dependence; Z79.899 Other long term (current) drug therapy; Z95.810 Presence of automatic (implantable) cardiac defibrillator; Z79.01 Long term (current) use of anticoagulants
CPT/HCPCS: 36415; 80053; 82306; 83735; 83880; 85025; 96365; 96366; G0463; J1250

== ENCOUNTER → 2018-07-30 | Outpatient (CLI) | payer MEDICARE, MEDICAID ==
[~2018-07-30] MED LIST changes: -DOBUTamine 1000MCG/ML 250 ML IV ONE
[2018-07-30 14:12] VITALS: BP_SYST 106; BP_SYST 116; BP_DIAS 72; BP_DIAS 89
--- NOTE | 2018-07-30 17:39 | NUR ---
EECP Tx# 3 First BP check on his Right Arm is at 116/72 with a heart rate of 66bpm. Patient states he was having Angina this morning. Per patient it lasted approximately 1 hour.Patient didn't take any type of medication for Angina.At this time patient denies any symptoms or discomfort. Arginext was taken before coming in to his Tx. 1st pleth at 1 min into Tx patient EECP pressure will slowly increase if tolerable. 2nd pleth at 33 min into Tx.Patient is tolerating Tx pressure at 80 with no complaints or discomfort at this time. EECP pressure was increase. Unable to keep EECP pressure up due to irregular rhythms.Reduce pressure down back to 80 monitor was stable with regular rhythms.At this time patient denies any symptoms or discomfort. 3rd and final pleth at 58 min into Tx patient is tolerating Tx pressure at 80 with no discomfort at this time. Monitor shows excellent pleth valves with a heart rate of 68bpm.Patient has 2 min left till his Tx is completed for the day. Last BP and HR check on his Right arm is at 106/89 with a heart rate of 65bpm. Patient denies any symptoms or discomfort at this time.
== END | disposition home or self-care (01) ==
LOC: CHF HDHVI 14:08
PROVIDERS: ATTEND Internal Medicine Cardiovascular Disease
DX: I25.708 Atherosclerosis of coronary artery bypass graft(s), unspecified, with other forms of angina pectoris (principal); I11.0 Hypertensive heart disease with heart failure; I50.23 Acute on chronic systolic (congestive) heart failure; I25.5 Ischemic cardiomyopathy; E11.9 Type 2 diabetes mellitus without complications; Z95.1 Presence of aortocoronary bypass graft; Z98.61 Coronary angioplasty status
CPT/HCPCS: G0166

== ENCOUNTER → 2018-07-31 | Outpatient (CLI) | payer MEDICAID, MEDICARE ==
[2018-07-31] VITALS (10 sets, daily range): BP systolic 93–107; BP diastolic 49–67
[~2018-07-31] MED LIST changes: +DOBUTamine 1000MCG/ML 250 ML IV ONE
--- NOTE | 2018-07-31 09:05 | NUR ---
CHF IV insertion IV access obtained, via clean sterile technique by inserting 22 gauge catheter at after attempt(s). IV secured properly. No trauma to site. Patient tolerated procedure well. Clinic Provider Clinic Provider into see pt with new orders received and carried out. Dobutamine gtt started at {3}mcg/kg/hr per MD order.
--- NOTE | 2018-07-31 09:20 | NUR ---
TOLERATING INFUSION WELL. PT IS GOOD HISTORIAN, TALKS OPENLY REGARDING MEDICAL HISTORY.
--- NOTE | 2018-07-31 10:00 | NUR ---
WITHOUT DISTRESS. VS WNL. SEE FREQUENT VITAL SIGNS. DOBUTAMINE INFUSION ONGOING. VISITING OR LISTENING TO MUSIC DURING INFUSION. CALM AND PLEASANT.
--- NOTE | 2018-07-31 11:00 | NUR ---
SEE FREQUENT VITALS. WITHOUT CHANGE.
--- NOTE | 2018-07-31 12:06 | NUR ---
INFUSION COMPLETED. SEE FREQUENT VITAL SIGNS. UP TO VOID. IV SITE TO RIGHT HAND DCD. SITE BENIGN POST INFUSION.
--- NOTE | 2018-07-31 12:25 | NUR ---
Discharge Instructions See e-MAR for any mediations given with this visit. Patient education given on disease process. Patient verbalized understanding. Previous labs reviewed. Patient discharged in stable condition with after care instructions and follow up appointment. MEDICATION ADMINISTRATION DOBUTAMINE GTT AT 3 MCG/KG/MIN (22.68 ML/HR) START AT 0905/STOP AT 1206
== END | disposition home or self-care (01) ==
LOC: CHF HDHVI 08:47
PROVIDERS: ATTEND Internal Medicine Cardiovascular Disease
DX: I13.0 Hypertensive heart and chronic kidney disease with heart failure and stage 1 through stage 4 chronic kidney disease, or unspecified chronic kidney disease (principal); I50.42 Chronic combined systolic (congestive) and diastolic (congestive) heart failure; E11.22 Type 2 diabetes mellitus with diabetic chronic kidney disease; N18.2 Chronic kidney disease, stage 2 (mild); I25.10 Atherosclerotic heart disease of native coronary artery without angina pectoris; I21.9 Acute myocardial infarction, unspecified; E11.40 Type 2 diabetes mellitus with diabetic neuropathy, unspecified; E11.319 Type 2 diabetes mellitus with unspecified diabetic retinopathy without macular edema; E11.51 Type 2 diabetes mellitus with diabetic peripheral angiopathy without gangrene; J44.9 Chronic obstructive pulmonary disease, unspecified; I25.5 Ischemic cardiomyopathy; I48.0 Paroxysmal atrial fibrillation; M19.90 Unspecified osteoarthritis, unspecified site; G89.4 Chronic pain syndrome; K21.9 Gastro-esophageal reflux disease without esophagitis; G47.33 Obstructive sleep apnea (adult) (pediatric); E78.5 Hyperlipidemia, unspecified; E66.01 Morbid (severe) obesity due to excess calories; F11.21 Opioid dependence, in remission; F32.9 Major depressive disorder, single episode, unspecified; F41.9 Anxiety disorder, unspecified; F43.20 Adjustment disorder, unspecified; Z95.810 Presence of automatic (implantable) cardiac defibrillator; Z95.5 Presence of coronary angioplasty implant and graft; Z79.01 Long term (current) use of anticoagulants; Z79.82 Long term (current) use of aspirin; Z79.4 Long term (current) use of insulin; Z68.38 Body mass index [BMI] 38.0-38.9, adult; Z79.899 Other long term (current) drug therapy; Z79.02 Long term (current) use of antithrombotics/antiplatelets; Z86.711 Personal history of pulmonary embolism; Z87.891 Personal history of nicotine dependence
CPT/HCPCS: 96365; 96366; G0463; J1250

== ENCOUNTER → 2018-08-01 | Outpatient (CLI) | payer MEDICAID, MEDICARE ==
[~2018-08-01] MED LIST changes: -DOBUTamine 1000MCG/ML 250 ML IV ONE
[2018-08-01 09:20] VITALS: BP_SYST 108; BP_SYST 118; BP_DIAS 56; BP_DIAS 64
--- NOTE | 2018-08-01 09:20 | NUR ---
EECP Tx# 4 First BP check on his Left arm is at 118/64 with a heart rate of 65bpm. Patient States he had an episode of Angina yesterday night while laying down in his bed, which it last approximately a couple of hours patient didn't t take any type of medications for his Angina. Pain level at that time was 9/10. At this time patient denies any angina or any other symptoms.We will continue to monitor patient through his Tx if any changes occur. Arginext was taken before coming in to his Tx. EECP pressure will be increase if tolerable. At this time Patient is tolerating Tx pressure at 160 well with no discomfort.Monitor shows good pleth valves at this time heart rate is at 74bpm.Patient denies any symptoms or discomfort. Last BP and HR check on his Right arm is at 108/56 with a heart rate of 65bpm. Patient denies any Angina,SOB,Fatigue or any other symptoms at this time. Patient will follow up for Tx# 5
== END | disposition home or self-care (01) ==
LOC: Rad HDHVI 08:04
PROVIDERS: ATTEND Internal Medicine Cardiovascular Disease
DX: I25.5 Ischemic cardiomyopathy (principal); I25.708 Atherosclerosis of coronary artery bypass graft(s), unspecified, with other forms of angina pectoris; I11.0 Hypertensive heart disease with heart failure; I50.23 Acute on chronic systolic (congestive) heart failure; E11.9 Type 2 diabetes mellitus without complications; Z95.1 Presence of aortocoronary bypass graft; Z98.61 Coronary angioplasty status
CPT/HCPCS: 93306; G0166

== ENCOUNTER → 2018-08-04 | Outpatient (CLI) | payer MEDICAID, MEDICARE ==
[2018-08-04 10:09] VITALS: BP_SYST 112; BP_SYST 124; BP_DIAS 64; BP_DIAS 73
--- NOTE | 2018-08-04 10:09 | NUR ---
EECP Tx# 5 First BP check on his Right arm is at 112/64 with a heart rate of 71bpm. Patient denies any symptoms or discomfort at this time. Arginext was taken before coming in to his Tx. Patient EECP pressure will slowly be increase if tolerable. At this time Patient is tolerating Tx pressure at 120 well with no discomfort or complaints at this time. Monitor shows a good ekg and waveforms with good pleth valves. Patient Last BP and HR check on his Right arm is at 124/73 with a heart rate of 70bpm. At this time patient denies any symptoms or discomfort.
== END | disposition home or self-care (01) ==
LOC: CHF HDHVI 09:56
PROVIDERS: ATTEND Internal Medicine Cardiovascular Disease
DX: I25.708 Atherosclerosis of coronary artery bypass graft(s), unspecified, with other forms of angina pectoris (principal); I11.0 Hypertensive heart disease with heart failure; I50.23 Acute on chronic systolic (congestive) heart failure; I25.5 Ischemic cardiomyopathy; E11.9 Type 2 diabetes mellitus without complications; Z95.1 Presence of aortocoronary bypass graft; Z98.61 Coronary angioplasty status
CPT/HCPCS: G0166

== ENCOUNTER → 2018-08-07 | Outpatient (CLI) | payer MEDICARE, MEDICAID ==
[2018-08-07] VITALS (9 sets, daily range): BP systolic 97–127; BP diastolic 52–77
[~2018-08-07] MED LIST changes: +CYANOCOBALAMIN (B-12) 1000 MCG/1 ML VIAL IM ONE; +CYANOCOBALAMIN (B-12) 1000 MCG/1 ML VIAL ONE; +DOBUTamine 1000MCG/ML 250 ML IV ONE; +IOHEXOL 350 MG/ML 100ML IJ ONE; +KETOROLAC TROMETH 60MG/2ML VIAL IM ONE; +LIDOCAINE 2%HCL (LOCAL ANESTH.) INJ 20ML MDV ONE; +MAGNESIUM SULFATE 1GM/100ML 100 ML IV ONE; +POTASSIUM CHL 20 Meq TABLET PO ONE
--- NOTE | 2018-08-07 08:50 | NUR ---
CHF PT ARRIVED AT THE CLINIC FOR FOLLOW UP AND DOBUTAMINE THERAPY. V/S OBTAINED PT IN 0 DISTRESS. PLAN OF CARE DISCUSSED PT VERBALIZED UNDERSTANDING
--- NOTE | 2018-08-07 09:00 | NUR ---
IV insertion IV access obtained, via clean sterile technique by inserting 22 gauge catheter at after attempt(s). IV secured properly. No trauma to site. Patient tolerated procedure well.
[2018-08-07 12:23] LABS: Basophils # (auto) 0 uL; Basophils % (auto) 0.7 % (0.0-2.0); Eosinophils # (auto) 0.1 uL; Eosinophils % (auto) 1.7 % (0.0-7.0); Hematocrit 39.8 % (41.0-53.0); Hemoglobin 13.5 g/dL (13.5-17.5); Lymphocytes # (auto) 1.6 uL; Lymphocytes % (auto) 26.7 % (10.0-50.0); Mean Corpuscular Hemoglobin 31.5 pg (28.0-32.0); Mean Corpuscular Volume 92.8 fL (80.0-100.0); Monocytes # (auto) 0.5 uL; Monocytes % (auto) 8.1 % (0.0-12.0); Neutrophils # (auto) 3.8 uL; Neutrophils % (auto) 62.8 % (37.0-80.0); Nucleated Red Blood Cells % 0.4 %; Platelet Count (auto) 229 10^3/uL (140-450); Red Blood Cells 4.29 10^6/uL (4.5-5.90); White Blood Cell 6.1 10^3/uL (4.4-10.8)
[2018-08-07 12:59] LABS: BUN/Creatinine Ratio 23.1; Calcium 8.8 mg/dL (8.5-10.1); Potassium 3.8 mmol/L (3.5-5.1)
--- NOTE | 2018-08-07 13:05 | NUR ---
IV removal IV DC'd with sterile technique, catheter fully intact. Pressure dressing applied to site. Patient tolerated procedure well. Discharged with aftercare instructions per MD. NOTE:
--- NOTE | 2018-08-07 13:15 | NUR ---
Discharge Instructions See e-MAR for any mediations given with this visit. Patient education given on disease process. Patient verbalized understanding. Previous labs reviewed. Patient discharged in stable condition with after care instructions and follow up appointment. MEDICATIONS 0915 START TIME DOBUTAMINE DRIP 3MCG/KG/MIN 1215 STOP TIME OF DOBUTAMINE 1243 TORADOL 60 MG IM X 1 1220 MAGNESIUM 1 GRAM IVPB X 1 1243 VITAMIN B12 1000MCG X 1
--- NOTE | 2018-09-05 16:37 | NUR ---
LATE ENTRY FOR 08/07/18 MAG BURGESS [id number] ADMIN BY ALLY CAMPOS B12 IM L DELTOID ADMIN TRINIDAD DONIS
== END | disposition home or self-care (01) ==
LOC: CHF HDHVI 08:41
PROVIDERS: ATTEND Internal Medicine Cardiovascular Disease
DX: I13.0 Hypertensive heart and chronic kidney disease with heart failure and stage 1 through stage 4 chronic kidney disease, or unspecified chronic kidney disease (principal); I50.23 Acute on chronic systolic (congestive) heart failure; I50.32 Chronic diastolic (congestive) heart failure; D64.9 Anemia, unspecified; I25.10 Atherosclerotic heart disease of native coronary artery without angina pectoris; I48.0 Paroxysmal atrial fibrillation; I25.2 Old myocardial infarction; J44.9 Chronic obstructive pulmonary disease, unspecified; K21.9 Gastro-esophageal reflux disease without esophagitis; E78.5 Hyperlipidemia, unspecified; E03.9 Hypothyroidism, unspecified; F32.9 Major depressive disorder, single episode, unspecified; E11.40 Type 2 diabetes mellitus with diabetic neuropathy, unspecified; M19.90 Unspecified osteoarthritis, unspecified site; E11.22 Type 2 diabetes mellitus with diabetic chronic kidney disease; E11.51 Type 2 diabetes mellitus with diabetic peripheral angiopathy without gangrene; E11.319 Type 2 diabetes mellitus with unspecified diabetic retinopathy without macular edema; F43.23 Adjustment disorder with mixed anxiety and depressed mood; F11.21 Opioid dependence, in remission; E66.01 Morbid (severe) obesity due to excess calories; F41.9 Anxiety disorder, unspecified; G47.33 Obstructive sleep apnea (adult) (pediatric); G89.29 Other chronic pain; M06.9 Rheumatoid arthritis, unspecified; Z79.01 Long term (current) use of anticoagulants; Z79.4 Long term (current) use of insulin; Z79.899 Other long term (current) drug therapy; Z87.891 Personal history of nicotine dependence; Z68.38 Body mass index [BMI] 38.0-38.9, adult; Z95.1 Presence of aortocoronary bypass graft; Z95.5 Presence of coronary angioplasty implant and graft; Z95.810 Presence of automatic (implantable) cardiac defibrillator; Z86.711 Personal history of pulmonary embolism
CPT/HCPCS: 36415; 80048; 83880; 85025; 93005; 96365; 96366; 96372; G0463; J1250; J1885; J3420; J3475; 96367

== ENCOUNTER → 2018-08-11 | Outpatient (CLI) | payer MEDICAID, MEDICARE ==
[~2018-08-11] MED LIST changes: -CYANOCOBALAMIN (B-12) 1000 MCG/1 ML VIAL IM ONE; -CYANOCOBALAMIN (B-12) 1000 MCG/1 ML VIAL ONE; -DOBUTamine 1000MCG/ML 250 ML IV ONE; -IOHEXOL 350 MG/ML 100ML IJ ONE; -KETOROLAC TROMETH 60MG/2ML VIAL IM ONE; -LIDOCAINE 2%HCL (LOCAL ANESTH.) INJ 20ML MDV ONE; -MAGNESIUM SULFATE 1GM/100ML 100 ML IV ONE; -POTASSIUM CHL 20 Meq TABLET PO ONE
[2018-08-11 10:08] VITALS: BP_SYST 122; BP_SYST 130; BP_DIAS 70; BP_DIAS 71
--- NOTE | 2018-08-11 15:22 | NUR ---
EECP Tx# 6 First BP check on his R arm is at 130/71 with a heart rate of 71bpm. Patient at this time denies any symptoms or discomfort at this time. Arginext was taken before coming in to his Tx EECP pressure will be increase if tolerable. Patient is tolerating Tx pressure at 120 well.Increase pressure and at this time patient can't tolerate Tx pressure higher than 120.Monitor for this pleth shows excellent pleth valves.Heart rate at this time is 70bpm. Last BP and HR check on his R arm is at 122/70 with a heart rate of 74bpm. Patient denies any symptoms or discomfort at this time.
== END | disposition home or self-care (01) ==
LOC: Rad HDHVI 09:45
PROVIDERS: ATTEND Internal Medicine Cardiovascular Disease
DX: I25.708 Atherosclerosis of coronary artery bypass graft(s), unspecified, with other forms of angina pectoris (principal); E11.9 Type 2 diabetes mellitus without complications; I11.0 Hypertensive heart disease with heart failure; I50.23 Acute on chronic systolic (congestive) heart failure; I25.5 Ischemic cardiomyopathy; Z95.1 Presence of aortocoronary bypass graft; Z98.61 Coronary angioplasty status
CPT/HCPCS: G0166

== ENCOUNTER → 2018-08-12 | Outpatient (CLI) | payer MEDICARE ==
[2018-08-12] VITALS (10 sets, daily range): BP systolic 89–123; BP diastolic 57–88
[~2018-08-12] VITALS: Ht 30.5 cm; Wt 125.2 kg
[~2018-08-12] MED LIST changes: +DOBUTamine 1000MCG/ML 250 ML IV ONE; +DOBUTamine 1000MCG/ML 250 ML IV SCH; +SODIUM CHLORIDE 0.9% 100 ML IV ONE
--- NOTE | 2018-08-12 08:30 | NUR ---
OPENING NOTE PATIENT ARRIVED TO CHF CLINIC, AMBULATORY, ALERT ORIENTED X4, NO SHORTNESS OF BREATH NOTED, PT HAS A LARGE SOFT ABDOMEN, ABLE TO VERBALIS HIS NEEDS, IN A PLEASANT MOOD, SAT ON A RECLINER CHAIR.
--- NOTE | 2018-08-12 08:37 | NUR ---
VITAL SIGNS ARE TAKE, PATIENT STABLE, AWARE OF THE PLAN OF CARE.
--- NOTE | 2018-08-12 08:40 | NUR ---
IV insertion IV access obtained, via clean sterile technique by inserting 22 gauge catheter at after attempt(s). IV secured properly. No trauma to site. Patient tolerated procedure well.
--- NOTE | 2018-08-12 09:00 | NUR ---
DOBUTAMINE DRIP INITIATED, VITAL SIGNS WILL BE MONITOR PERIODICALLY.
[2018-08-12 12:06] LABS: Basophils # (auto) 0 uL; Basophils % (auto) 0.4 % (0.0-2.0); Eosinophils # (auto) 0.1 uL; Eosinophils % (auto) 2.3 % (0.0-7.0); Hematocrit 39.5 % (41.0-53.0); Hemoglobin 13.3 g/dL (13.5-17.5); Lymphocytes # (auto) 1.5 uL; Lymphocytes % (auto) 31.3 % (10.0-50.0); Mean Corpuscular Hemoglobin 30.9 pg (28.0-32.0); Mean Corpuscular Hgb Conc. 33.7 g/dL (32.0-36.0); Mean Corpuscular Volume 91.9 fL (80.0-100.0); Monocytes # (auto) 0.5 uL; Monocytes % (auto) 9.4 % (0.0-12.0); Neutrophils # (auto) 2.8 uL; Neutrophils % (auto) 56.6 % (37.0-80.0); Nucleated Red Blood Cells % 0.2 %; Platelet Count (auto) 216 10^3/uL (140-450); Red Cell Distribution Width 14.7 % (11.8-14.3); White Blood Cell 4.9 10^3/uL (4.4-10.8)
[2018-08-12 12:13] LABS: BUN/Creatinine Ratio 21.9; Magnesium 1.8 mg/dL (1.6-2.6)
--- NOTE | 2018-08-12 12:20 | NUR ---
IV removal IV DC'd with sterile technique, catheter fully intact. Pressure dressing applied to site. Patient tolerated procedure well. Discharged with aftercare instructions per MD. NOTE:
--- NOTE | 2018-08-12 12:22 | NUR ---
Discharge Instructions See e-MAR for any mediations given with this visit. Patient education given on disease process. Patient verbalized understanding. Previous labs reviewed. Patient discharged in stable condition with after care instructions and follow up appointment. AT 0900 DOBUTAMINE DRIP STARTED AT 1213 DOBUTAMINE STOP TIME 1100 .09 NS 100 ML
== END | disposition home or self-care (01) ==
LOC: CHF HDHVI 08:31
PROVIDERS: ATTEND Internal Medicine Cardiovascular Disease
DX: I13.0 Hypertensive heart and chronic kidney disease with heart failure and stage 1 through stage 4 chronic kidney disease, or unspecified chronic kidney disease (principal); E11.22 Type 2 diabetes mellitus with diabetic chronic kidney disease; N18.2 Chronic kidney disease, stage 2 (mild); I50.42 Chronic combined systolic (congestive) and diastolic (congestive) heart failure; D64.9 Anemia, unspecified; E83.40 Disorders of magnesium metabolism, unspecified; I25.10 Atherosclerotic heart disease of native coronary artery without angina pectoris; J44.9 Chronic obstructive pulmonary disease, unspecified; K21.9 Gastro-esophageal reflux disease without esophagitis; F41.9 Anxiety disorder, unspecified; E78.5 Hyperlipidemia, unspecified; E03.9 Hypothyroidism, unspecified; F32.9 Major depressive disorder, single episode, unspecified; E66.01 Morbid (severe) obesity due to excess calories; I25.2 Old myocardial infarction; G89.4 Chronic pain syndrome; E11.21 Type 2 diabetes mellitus with diabetic nephropathy; E11.40 Type 2 diabetes mellitus with diabetic neuropathy, unspecified; E11.319 Type 2 diabetes mellitus with unspecified diabetic retinopathy without macular edema; E11.51 Type 2 diabetes mellitus with diabetic peripheral angiopathy without gangrene; I48.0 Paroxysmal atrial fibrillation; Z79.01 Long term (current) use of anticoagulants; Z79.82 Long term (current) use of aspirin; Z79.4 Long term (current) use of insulin; Z87.891 Personal history of nicotine dependence; Z95.810 Presence of automatic (implantable) cardiac defibrillator; Z95.5 Presence of coronary angioplasty implant and graft
CPT/HCPCS: 36415; 80048; 83735; 83880; 85025; 96365; 96366; G0463; J1250

== ENCOUNTER → 2018-08-13 | Outpatient (CLI) | payer MEDICARE ==
[~2018-08-13] MED LIST changes: -DOBUTamine 1000MCG/ML 250 ML IV ONE; -DOBUTamine 1000MCG/ML 250 ML IV SCH; -SODIUM CHLORIDE 0.9% 100 ML IV ONE
[2018-08-13 10:22] VITALS: BP_SYST 109; BP_SYST 111; BP_DIAS 61; BP_DIAS 65
--- NOTE | 2018-08-13 14:45 | NUR ---
EECP Tx# 7 First BP check on his R arm is at 109/65 with a heart rate of 70bpm. Patient at this time denies any symptoms or discomfort at this time. Arginext was taken before coming in to his Tx EECP pressure will be increase if tolerable. Patient is tolerating Tx pressure at 120 well. Patient can't tolerate Tx pressure higher than 120.Monitor for this pleth shows good pleth valves.Heart rate at this time is 71bpm. Last BP and HR check on his R arm is at 111/61 with a heart rate of 68bpm. Patient denies any symptoms or discomfort at this time.
== END | disposition home or self-care (01) ==
LOC: Rad HDHVI 09:47
PROVIDERS: ATTEND Internal Medicine Cardiovascular Disease
DX: I25.708 Atherosclerosis of coronary artery bypass graft(s), unspecified, with other forms of angina pectoris (principal); I25.5 Ischemic cardiomyopathy; I11.0 Hypertensive heart disease with heart failure; I50.23 Acute on chronic systolic (congestive) heart failure; E11.9 Type 2 diabetes mellitus without complications; Z98.61 Coronary angioplasty status; Z95.1 Presence of aortocoronary bypass graft
CPT/HCPCS: G0166

== ENCOUNTER → 2018-08-14 | Outpatient (CLI) | payer MEDICARE ==
[2018-08-14] VITALS (9 sets, daily range): BP systolic 91–100; BP diastolic 47–63
[~2018-08-14] VITALS: Ht 30.5 cm; Wt 126.6 kg
[~2018-08-14] MED LIST changes: +DOBUTamine 1000MCG/ML 250 ML IV ONE; +KETOROLAC TROMETH 60MG/2ML VIAL IM ONE; +MAGNESIUM SULFATE 1GM/100ML 100 ML IV ONE
--- NOTE | 2018-08-14 08:30 | NUR ---
CHF PT ARRIVED AT CHF CLINIC FOR DOBUTAMINE THERAPY A/O X 4, 0 DISTRESS, O PAIN. EXPLAINED PLAN OF CARE PT VEBALIZED UNDERSTANDING
--- NOTE | 2018-08-14 08:40 | NUR ---
IV insertion IV access obtained, via clean sterile technique by inserting 22 gauge catheter at after attempt(s). IV secured properly. No trauma to site. Patient tolerated procedure well.
--- NOTE | 2018-08-14 09:00 | NUR ---
Clinic Provider Clinic Provider into see pt with new orders received and carried out. Dobutamine gtt started at {3}mcg/kg/hr per MD order.
--- NOTE | 2018-08-14 11:55 | NUR ---
Discharge Instructions See e-MAR for any mediations given with this visit. Patient education given on disease process. Patient verbalized understanding. Previous labs reviewed. Patient discharged in stable condition with after care instructions and follow up appointment. MEDICATIONS 0850 START TIME DOBUTAMINE DRIP 3MCG/KG/MIN 1200 STOP TIME DOBUTAMINE DRIP 1050 MAG RIDER IVPB X 1 TORADOL 60 MG IM X 1 lot # [id number]
[2018-08-14 12:19] LABS: Basophils # (auto) 0 uL; Basophils % (auto) 0.6 % (0.0-2.0); Eosinophils # (auto) 0.1 uL; Hemoglobin 13.6 g/dL (13.5-17.5); Lymphocytes # (auto) 1.4 uL; Lymphocytes % (auto) 29.1 % (10.0-50.0); Mean Corpuscular Hemoglobin 31.2 pg (28.0-32.0); Mean Corpuscular Hgb Conc. 33.9 g/dL (32.0-36.0); Monocytes # (auto) 0.4 uL; Monocytes % (auto) 8.4 % (0.0-12.0); Neutrophils # (auto) 2.9 uL; Neutrophils % (auto) 59.9 % (37.0-80.0); Nucleated Red Blood Cells % 0.2 %; Platelet Count (auto) 229 10^3/uL (140-450); Red Blood Cells 4.35 10^6/uL (4.5-5.90); Red Cell Distribution Width 15.2 % (11.8-14.3); White Blood Cell 4.8 10^3/uL (4.4-10.8)
[2018-08-14 12:30] LABS: Potassium 3.8 mmol/L (3.5-5.1)
[2018-08-14 12:38] LABS: BUN/Creatinine Ratio 14.3; Calcium 8.8 mg/dL (8.5-10.1); Magnesium 1.9 mg/dL (1.6-2.6)
== END | disposition home or self-care (01) ==
LOC: CHF HDHVI 08:48
PROVIDERS: ATTEND Internal Medicine Cardiovascular Disease
DX: I13.0 Hypertensive heart and chronic kidney disease with heart failure and stage 1 through stage 4 chronic kidney disease, or unspecified chronic kidney disease (principal); E11.22 Type 2 diabetes mellitus with diabetic chronic kidney disease; I50.42 Chronic combined systolic (congestive) and diastolic (congestive) heart failure; N18.2 Chronic kidney disease, stage 2 (mild); E83.40 Disorders of magnesium metabolism, unspecified; D64.9 Anemia, unspecified; I25.2 Old myocardial infarction; I25.10 Atherosclerotic heart disease of native coronary artery without angina pectoris; I48.0 Paroxysmal atrial fibrillation; J44.9 Chronic obstructive pulmonary disease, unspecified; G89.4 Chronic pain syndrome; K21.9 Gastro-esophageal reflux disease without esophagitis; G47.33 Obstructive sleep apnea (adult) (pediatric); E11.51 Type 2 diabetes mellitus with diabetic peripheral angiopathy without gangrene; E11.319 Type 2 diabetes mellitus with unspecified diabetic retinopathy without macular edema; E78.5 Hyperlipidemia, unspecified; E66.01 Morbid (severe) obesity due to excess calories; M19.90 Unspecified osteoarthritis, unspecified site; F43.22 Adjustment disorder with anxiety; F32.9 Major depressive disorder, single episode, unspecified; F11.21 Opioid dependence, in remission; Z95.1 Presence of aortocoronary bypass graft; Z68.38 Body mass index [BMI] 38.0-38.9, adult; Z79.01 Long term (current) use of anticoagulants; Z79.02 Long term (current) use of antithrombotics/antiplatelets; Z79.4 Long term (current) use of insulin; Z79.82 Long term (current) use of aspirin; Z79.899 Other long term (current) drug therapy; Z87.891 Personal history of nicotine dependence; Z86.711 Personal history of pulmonary embolism
CPT/HCPCS: 36415; 80048; 83735; 83880; 85025; 96365; 96366; 96368; 96372; G0463; J1250; J1885; J3475

== ENCOUNTER → 2018-08-15 | Outpatient (CLI) | payer MEDICARE ==
[~2018-08-15] MED LIST changes: -DOBUTamine 1000MCG/ML 250 ML IV ONE; +FUROSEMIDE 40 MG/4 ML VIAL IV ONE; +FUROSEMIDE 40 MG/4 ML VIAL ONE; +KETOROLAC TROMETH 30 MG/ML 1ML VIAL IV ONE; +MAGNESIUM OXIDE 400 MG TAB ONE; +MAGNESIUM OXIDE 400 MG TAB PO ONE; -MAGNESIUM SULFATE 1GM/100ML 100 ML IV ONE; +POTASSIUM CHL 20 Meq TABLET PO ONE
--- NOTE | 2018-08-15 09:20 | NUR ---
PT. TO CHF CLINIC VIA POV WITH C/O SSCP/PRESSURE, NON RADIATING ONSET AT 0500 THIS AM. PT STATES HE ALSO HAD SIMILAR CHEST PRESSURE LAST NIGHT, DID NOT SLEEP WELL, DUE TO INJURY TO TOE WHICH PT. HAD DIFFICULTY CONTROLLING THE BLEEDING FOR 2 HRS, WHICH KEPT HIM AWAKE. PT. RATES CHEST 10/10, WORSENS WITH INSPIRATION AND MOVEMENT. PT. STATES HE DID NOT TAKE ANY NTG FOR THIS PAIN, BECAUSE HE'S HAD SEVERE HEADACHE FOR A WEEK NOW. SEE NSG ASSESS.
--- NOTE | 2018-08-15 09:30 | NUR ---
O2 APPLIED AT 4L VIA NC PER PROTOCOL UPON ARRIVAL. PT. STATES PAIN SUBSIDING DOWN TO 8/10. HISTOLOGIC AIDE SHOWS ATRIAL PACED RHYTHM AT 65 WITH FREQUENT PVC'S. 20G HL ESTABLISHED LFT HAND STAT LABS SENT PER MD ORDER. RBS IS 198. PT. STATES HE TOOK ALL OF HIS AM SCHEDULED MEDS THIS MORNING INCLUDING ASA.
--- NOTE | 2018-08-15 09:50 | NUR ---
PT. TO AND FROM XRAY VIA WC, TOLERATING PROCEDURE WELL. PT. C/O PAIN WITH INSPIRATION, AND GETTING IN AND OUT OF WC. 110/68, ATRIAL PACED AT 64 WITH OCC. PVC'S. SATS 95-96% ON 4L/NC
--- NOTE | 2018-08-15 10:00 | NUR ---
COMFORT: CHEST DISCOMFORT DOWN TO 6-7/10 WITH O2. PT. DOES NOT WANT NTG SL DUE TO "MIGRAINE LIKE HEADACHE FOR LAST WEEK. DR. TOURE GIVEN RESULTS OF EKG AND HX. NEW ORDERS RECEIVED AND CARRIED OUT.
[2018-08-15 10:14] LABS: Basophils # (auto) 0 uL; Basophils % (auto) 0.4 % (0.0-2.0); Eosinophils # (auto) 0.1 uL; Eosinophils % (auto) 1.9 % (0.0-7.0); Hematocrit 39.8 % (41.0-53.0); Hemoglobin 13.5 g/dL (13.5-17.5); Lymphocytes # (auto) 1.6 uL; Lymphocytes % (auto) 24.7 % (10.0-50.0); Mean Corpuscular Hemoglobin 30.9 pg (28.0-32.0); Mean Corpuscular Hgb Conc. 33.8 g/dL (32.0-36.0); Mean Corpuscular Volume 91.4 fL (80.0-100.0); Monocytes # (auto) 0.5 uL; Monocytes % (auto) 7.4 % (0.0-12.0); Neutrophils # (auto) 4.2 uL; Neutrophils % (auto) 65.6 % (37.0-80.0); Nucleated Red Blood Cells % 0.1 %; Platelet Count (auto) 219 10^3/uL (140-450); Red Blood Cells 4.36 10^6/uL (4.5-5.90); Red Cell Distribution Width 14.9 % (11.8-14.3); White Blood Cell 6.4 10^3/uL (4.4-10.8)
[2018-08-15 10:20] LABS: Calcium 8.8 mg/dL (8.5-10.1); Magnesium 1.7 mg/dL (1.6-2.6)
--- NOTE | 2018-08-15 10:25 | NUR ---
MEDS: PT. MEDICATED WITH TORADOL 30 MG SIVP PER MD ORDER.
--- NOTE | 2018-08-15 10:26 | NUR ---
MEDS: PT. MEDICATED WITH MAGOX 400MG PO PER MD ORDER.
[2018-08-15 10:27] LABS: INR 1.03 (0.9-1.15); Partial Thromboplastin Time 28.3 sec (23.78-33.04)
--- NOTE | 2018-08-15 11:00 | NUR ---
COMFORT: 99/60, 64, 18, 95% ON 3L/NC. PT. STATES PAIN DOWN TO 4-5/10. PT. APPEARS IN NAD, TALKING WITH PT. IN CHAIR NEXT TO ABOUT BASEBALL.
--- NOTE | 2018-08-15 11:22 | NUR ---
MEDS: PT. MEDICATED WITH TORADOL 30 MG IM RT. GLUT. PER ORDER.
--- NOTE | 2018-08-15 12:00 | NUR ---
MEDS: PT. MEDICATED WITH LASIX 40 MG SIVP AND KDUR 40 MEQ PO PER MD ORDER. 99/59, 65,18
--- NOTE | 2018-08-15 13:00 | NUR ---
IV removal IV DC'd with sterile technique, catheter fully intact. Pressure dressing applied to site. Patient tolerated procedure well. Discharged with aftercare instructions per MD. NOTE:
[2018-08-15 13:15] VITALS: BP 99/69
--- NOTE | 2018-08-15 13:15 | NUR ---
Discharge Instructions See e-MAR for any mediations given with this visit. Patient education given on disease process. Patient verbalized understanding. Previous labs reviewed. Patient discharged in stable condition with after care instructions and follow up appointment. PT. INSTRUCTED TO DOUBLE HIS LASIX AND POTASSIUM DOSE FOR NEXT 2 DAYS PER MD ORDER. PT. TO TAKE MOTRIN 600MG Q 8 HRS OVER THE WEEKEND, DECREASE HIS CARVEDILOL TO 6.25 MG OVER THE WEEKEND AND WATCH HIS PO FLUID INTAKE. PT TO RTC SATURDAY AM BEFORE EECP TX, WHICH WAS CANCELLED TODAY. PT. STATES HE IS FEELING BETTER AFTER MEDS. PAIN DOWN TO 1-2/10. VSS, PWD.
== END | disposition home or self-care (01) ==
LOC: CHF HDHVI 09:26
PROVIDERS: ATTEND Internal Medicine Cardiovascular Disease
DX: I13.0 Hypertensive heart and chronic kidney disease with heart failure and stage 1 through stage 4 chronic kidney disease, or unspecified chronic kidney disease (principal); E11.22 Type 2 diabetes mellitus with diabetic chronic kidney disease; I50.23 Acute on chronic systolic (congestive) heart failure; I50.32 Chronic diastolic (congestive) heart failure; N18.2 Chronic kidney disease, stage 2 (mild); I20.9 Angina pectoris, unspecified; E83.40 Disorders of magnesium metabolism, unspecified; D64.9 Anemia, unspecified; R09.89 Other specified symptoms and signs involving the circulatory and respiratory systems; R79.1 Abnormal coagulation profile; R06.02 Shortness of breath; I25.2 Old myocardial infarction; J98.11 Atelectasis; J44.9 Chronic obstructive pulmonary disease, unspecified; M19.90 Unspecified osteoarthritis, unspecified site; G47.33 Obstructive sleep apnea (adult) (pediatric); E78.5 Hyperlipidemia, unspecified; F32.9 Major depressive disorder, single episode, unspecified; E66.01 Morbid (severe) obesity due to excess calories; E11.51 Type 2 diabetes mellitus with diabetic peripheral angiopathy without gangrene; F11.21 Opioid dependence, in remission; F43.20 Adjustment disorder, unspecified; Z87.891 Personal history of nicotine dependence; Z79.02 Long term (current) use of antithrombotics/antiplatelets; Z79.4 Long term (current) use of insulin; Z79.82 Long term (current) use of aspirin; Z95.810 Presence of automatic (implantable) cardiac defibrillator; Z79.01 Long term (current) use of anticoagulants; Z68.38 Body mass index [BMI] 38.0-38.9, adult; Z95.1 Presence of aortocoronary bypass graft
CPT/HCPCS: 36415; 71046; 80048; 82962; 83735; 83880; 84484; 85025; 85610; 85730; 93005; 96372; 96374; 96375; G0463; J1885; J1940

== ENCOUNTER → 2018-08-18 | Outpatient (CLI) | payer MEDICARE ==
[~2018-08-18] MED LIST changes: -FUROSEMIDE 40 MG/4 ML VIAL IV ONE; -FUROSEMIDE 40 MG/4 ML VIAL ONE; -MAGNESIUM OXIDE 400 MG TAB ONE; -MAGNESIUM OXIDE 400 MG TAB PO ONE; -POTASSIUM CHL 20 Meq TABLET PO ONE
[2018-08-18 08:30] VITALS: BP 104/68
[2018-08-18 09:15] VITALS: BP 96/63
--- NOTE | 2018-08-18 09:15 | NUR ---
FOLLOWUP FROM SATURDAY AFTER EPISODE OF CHEST PAIN. ALERT AND WITHOUT DISTRESS. PT REPORTS THAT HE FEELS WELL. WEIGHT UNCHANGED FROM SATURDAY. MEDICATION REVIEW DONE. PT GOING FOR EECP CURRENTLY. LABS DRAWN AND SENT. Discharge Instructions See e-MAR for any mediations given with this visit. Patient education given on disease process. Patient verbalized understanding. Previous labs reviewed. Patient discharged in stable condition with after care instructions and follow up appointment FOR 08/19/18.
--- NOTE | 2018-08-18 11:27 | NUR ---
EECP Tx# 8 Patient came in feeling well at this time. Patient denies any symptoms or discomfort at this moment. BP 104/68 with a heart rate of 72bpm. Spo2 92% Arginext was taken before coming in to his Tx. 1ST Pleth at 1 min into Tx patient EECP pressure will increase if tolerable. 2nd pleth at 42 min into Tx patient is tolerating Tx pressure at 120 well at this time.Patient at this time can only Tolerate Pressure at 120. Monitor shows a good ekg and waveforms with excellent pleth valves and a heart rate of 65bpm. 3rd and final pleth at 55 min into Tx patient is doing well at this time.Monitor shows a good ekg and waveforms with good pleth valves and a heart rate of 67bpm.Patient has 5 min left till his Tx is completed for the day. Last BP and HR check on his Left arm is at 108/72 with a heart rate of 72bpm.Spo2 93. Patient at this time denies any symptoms or discomfort.
[2018-08-18 11:33] VITALS: BP_SYST 104; BP_SYST 108; BP_DIAS 68; BP_DIAS 72
[2018-08-18 12:35] LABS: Basophils # (auto) 0 uL; Basophils % (auto) 0.6 % (0.0-2.0); Eosinophils # (auto) 0.1 uL; Hematocrit 41.1 % (41.0-53.0); Hemoglobin 13.9 g/dL (13.5-17.5); Lymphocytes # (auto) 1.5 uL; Lymphocytes % (auto) 27.7 % (10.0-50.0); Mean Corpuscular Hemoglobin 31.2 pg (28.0-32.0); Mean Corpuscular Hgb Conc. 33.8 g/dL (32.0-36.0); Mean Corpuscular Volume 92.3 fL (80.0-100.0); Monocytes # (auto) 0.4 uL; Monocytes % (auto) 7.4 % (0.0-12.0); Neutrophils # (auto) 3.5 uL; Neutrophils % (auto) 62.3 % (37.0-80.0); Nucleated Red Blood Cells % 0.6 %; Platelet Count (auto) 252 10^3/uL (140-450); Red Blood Cells 4.45 10^6/uL (4.5-5.90); Red Cell Distribution Width 15.3 % (11.8-14.3); White Blood Cell 5.6 10^3/uL (4.4-10.8)
[2018-08-18 13:42] LABS: BUN/Creatinine Ratio 15.9; Calcium 8.8 mg/dL (8.5-10.1); Magnesium 1.7 mg/dL (1.6-2.6)
== END | disposition home or self-care (01) ==
LOC: CHF HDHVI 08:32
PROVIDERS: ATTEND Internal Medicine Cardiovascular Disease
DX: I13.0 Hypertensive heart and chronic kidney disease with heart failure and stage 1 through stage 4 chronic kidney disease, or unspecified chronic kidney disease (principal); E11.22 Type 2 diabetes mellitus with diabetic chronic kidney disease; I50.23 Acute on chronic systolic (congestive) heart failure; I50.32 Chronic diastolic (congestive) heart failure; N18.2 Chronic kidney disease, stage 2 (mild); D64.9 Anemia, unspecified; E83.40 Disorders of magnesium metabolism, unspecified; R70.0 Elevated erythrocyte sedimentation rate; J44.9 Chronic obstructive pulmonary disease, unspecified; I25.5 Ischemic cardiomyopathy; I25.708 Atherosclerosis of coronary artery bypass graft(s), unspecified, with other forms of angina pectoris; I48.0 Paroxysmal atrial fibrillation; E11.51 Type 2 diabetes mellitus with diabetic peripheral angiopathy without gangrene; E78.5 Hyperlipidemia, unspecified; E66.01 Morbid (severe) obesity due to excess calories; G47.33 Obstructive sleep apnea (adult) (pediatric); F43.23 Adjustment disorder with mixed anxiety and depressed mood; F11.21 Opioid dependence, in remission; M19.90 Unspecified osteoarthritis, unspecified site; K21.9 Gastro-esophageal reflux disease without esophagitis; Z68.38 Body mass index [BMI] 38.0-38.9, adult; Z79.01 Long term (current) use of anticoagulants; Z79.82 Long term (current) use of aspirin; Z87.891 Personal history of nicotine dependence; Z95.1 Presence of aortocoronary bypass graft; Z79.899 Other long term (current) drug therapy; Z95.810 Presence of automatic (implantable) cardiac defibrillator; Z79.4 Long term (current) use of insulin
CPT/HCPCS: 36415; 80048; 83735; 83880; 85025; 85652; 96374; G0166; G0463; J1885

== ENCOUNTER → 2018-08-19 | Outpatient (CLI) | payer MEDICARE ==
[2018-08-19] VITALS (8 sets, daily range): BP systolic 100–113; BP diastolic 45–83
[~2018-08-19] MED LIST changes: +DOBUTamine 1000MCG/ML 250 ML IV ONE; -KETOROLAC TROMETH 30 MG/ML 1ML VIAL IV ONE; -KETOROLAC TROMETH 60MG/2ML VIAL IM ONE; +MAGNESIUM SULFATE 1GM/100ML 100 ML IV ONE
--- NOTE | 2018-08-19 08:55 | NUR ---
IV insertion IV access obtained, via clean sterile technique by inserting 22 gauge catheter at after attempt(s). IV secured properly. No trauma to site. Patient tolerated procedure well.
--- NOTE | 2018-08-19 09:00 | NUR ---
CHF PT ARRIVED AT THE CHF CLINIC FOR THERAPY 0 DISTRESS, V/S STABLE EXPLAINED PLAN OF CARE PT VERBALIZED UNDERSTANDING
--- NOTE | 2018-08-19 09:00 | NUR ---
Discharge Instructions See e-MAR for any mediations given with this visit. Patient education given on disease process. Patient verbalized understanding. Previous labs reviewed. Patient discharged in stable condition with after care instructions and follow up appointment. MEDICATIONS 0900 START TIME DOBUTAMINE DRIP 1205 STOP TIME DOBUTAMINE DRIP 1020 START TIME 2 GRAM MAG RIDER 1215 STOP TIME 2 GRAM MAG RIDER
[2018-08-19] MEDS: MAGNESIUM SULFATE 1GM/100ML 100 ML IV SCH ×2 (10:20→12:15)
--- NOTE | 2018-08-19 12:10 | NUR ---
IV removal IV DC'd with sterile technique, catheter fully intact. Pressure dressing applied to site. Patient tolerated procedure well. Discharged with aftercare instructions per MD. NOTE:
== END | disposition home or self-care (01) ==
LOC: CHF HDHVI 08:33
PROVIDERS: ATTEND Internal Medicine Cardiovascular Disease
DX: I13.0 Hypertensive heart and chronic kidney disease with heart failure and stage 1 through stage 4 chronic kidney disease, or unspecified chronic kidney disease (principal); E11.22 Type 2 diabetes mellitus with diabetic chronic kidney disease; I50.42 Chronic combined systolic (congestive) and diastolic (congestive) heart failure; N18.2 Chronic kidney disease, stage 2 (mild); J44.9 Chronic obstructive pulmonary disease, unspecified; R53.83 Other fatigue; I48.0 Paroxysmal atrial fibrillation; I25.10 Atherosclerotic heart disease of native coronary artery without angina pectoris; I25.2 Old myocardial infarction; K21.9 Gastro-esophageal reflux disease without esophagitis; E78.5 Hyperlipidemia, unspecified; E03.9 Hypothyroidism, unspecified; E11.51 Type 2 diabetes mellitus with diabetic peripheral angiopathy without gangrene; E11.319 Type 2 diabetes mellitus with unspecified diabetic retinopathy without macular edema; E11.40 Type 2 diabetes mellitus with diabetic neuropathy, unspecified; E66.01 Morbid (severe) obesity due to excess calories; M19.90 Unspecified osteoarthritis, unspecified site; G89.4 Chronic pain syndrome; F32.9 Major depressive disorder, single episode, unspecified; E66.9 Obesity, unspecified; F41.9 Anxiety disorder, unspecified; F11.21 Opioid dependence, in remission; F43.20 Adjustment disorder, unspecified; Z79.01 Long term (current) use of anticoagulants; Z79.2 Long term (current) use of antibiotics; Z79.899 Other long term (current) drug therapy; Z87.891 Personal history of nicotine dependence; Z95.1 Presence of aortocoronary bypass graft; Z95.810 Presence of automatic (implantable) cardiac defibrillator; Z79.84 Long term (current) use of oral hypoglycemic drugs; Z68.38 Body mass index [BMI] 38.0-38.9, adult; Z86.711 Personal history of pulmonary embolism; Z79.02 Long term (current) use of antithrombotics/antiplatelets
CPT/HCPCS: 96365; 96366; 96368; G0463; J1250; J3475

== ENCOUNTER → 2018-08-21 | Outpatient (CLI) | payer MEDICARE ==
[2018-08-21] VITALS (9 sets, daily range): BP systolic 110–130; BP diastolic 63–82
[~2018-08-21] MED LIST changes: -MAGNESIUM SULFATE 1GM/100ML 100 ML IV ONE
--- NOTE | 2018-08-21 08:18 | NUR ---
IN TO CLINIC FOR SCHEDULED INFUSION. WITHOUT DISTRESS OR DISCOMFORT. VS WNL. Clinic Provider Clinic Provider into see pt with new orders received and carried out. Dobutamine gtt started at {3}mcg/kg/hr per MD order.
--- NOTE | 2018-08-21 09:30 | NUR ---
VS WNL. DOZING WITHOUT DISTRESS. INFUSION ONGOING. NO COMPLAINTS AT THIS TIME.
[2018-08-21 10:03] LABS: BUN/Creatinine Ratio 20.7; Calcium 9.1 mg/dL (8.5-10.1); Magnesium 1.8 mg/dL (1.6-2.6); Potassium 4.1 mmol/L (3.5-5.1)
--- NOTE | 2018-08-21 11:50 | NUR ---
CHF INFUSION COMPLETED. AFFECT CHEERFUL AND JOKING WITH STAFF. VS WNL.IV removal IV DC'd with sterile technique, catheter fully intact. Pressure dressing applied to site. Patient tolerated procedure well. Discharged with aftercare instructions per MD. Discharge Instructions See e-MAR for any mediations given with this visit. Patient education given on disease process. Patient verbalized understanding. Previous labs reviewed. Patient discharged in stable condition with after care instructions and follow up appointment FOR Saturday08/26/18. MEDICATION ADMINISTRATION DOBUTAMINE GTT AT 3 MCG/KG/MIN START AT 0834/STOP AT 1137
== END | disposition home or self-care (01) ==
LOC: CHF HDHVI 08:25
PROVIDERS: ATTEND Internal Medicine Cardiovascular Disease
DX: I13.0 Hypertensive heart and chronic kidney disease with heart failure and stage 1 through stage 4 chronic kidney disease, or unspecified chronic kidney disease (principal); E11.22 Type 2 diabetes mellitus with diabetic chronic kidney disease; N18.2 Chronic kidney disease, stage 2 (mild); I50.32 Chronic diastolic (congestive) heart failure; I50.23 Acute on chronic systolic (congestive) heart failure; E83.40 Disorders of magnesium metabolism, unspecified; I25.10 Atherosclerotic heart disease of native coronary artery without angina pectoris; I48.0 Paroxysmal atrial fibrillation; I25.2 Old myocardial infarction; J44.9 Chronic obstructive pulmonary disease, unspecified; K21.9 Gastro-esophageal reflux disease without esophagitis; E78.5 Hyperlipidemia, unspecified; G47.33 Obstructive sleep apnea (adult) (pediatric); G89.29 Other chronic pain; F43.23 Adjustment disorder with mixed anxiety and depressed mood; E11.51 Type 2 diabetes mellitus with diabetic peripheral angiopathy without gangrene; E11.319 Type 2 diabetes mellitus with unspecified diabetic retinopathy without macular edema; E66.01 Morbid (severe) obesity due to excess calories; F11.21 Opioid dependence, in remission; Z79.01 Long term (current) use of anticoagulants; Z87.891 Personal history of nicotine dependence; Z95.1 Presence of aortocoronary bypass graft; Z95.810 Presence of automatic (implantable) cardiac defibrillator; Z79.4 Long term (current) use of insulin; Z95.5 Presence of coronary angioplasty implant and graft; Z68.38 Body mass index [BMI] 38.0-38.9, adult; Z79.02 Long term (current) use of antithrombotics/antiplatelets; Z86.711 Personal history of pulmonary embolism; Z79.82 Long term (current) use of aspirin
CPT/HCPCS: 36415; 80048; 83735; 83880; 96365; 96366; G0463; J1250

== ENCOUNTER → 2018-08-22 | Outpatient (CLI) | payer MEDICARE ==
[~2018-08-22] MED LIST changes: -DOBUTamine 1000MCG/ML 250 ML IV ONE
--- NOTE | 2018-08-22 16:37 | NUR ---
[facility] Tx# 09 First BP check on right arm is at 128/89 with a heart rate of 68bpm. Patient denies any symptoms or discomfort at this time. Arginext was taken before coming in to his Tx. Patient is tolerating Tx pressure at 160 well at this time with no complaints or discomfort.Monitor shows excellent pleth valves.Heart rate at this time is 68bpm. Last BP check on his R arm is at 132/76 with a heart rate of 66bpm. Patient denies any symptoms or discomfort at this time.
[2018-08-22 16:49] VITALS: BP_SYST 128; BP_SYST 132; BP_DIAS 76; BP_DIAS 89
== END | disposition home or self-care (01) ==
LOC: CHF HDHVI 09:55
PROVIDERS: ATTEND Internal Medicine Cardiovascular Disease
DX: I25.708 Atherosclerosis of coronary artery bypass graft(s), unspecified, with other forms of angina pectoris (principal); E11.9 Type 2 diabetes mellitus without complications; I25.5 Ischemic cardiomyopathy; I11.0 Hypertensive heart disease with heart failure; I50.23 Acute on chronic systolic (congestive) heart failure; Z95.1 Presence of aortocoronary bypass graft; Z98.61 Coronary angioplasty status
CPT/HCPCS: G0166

== ENCOUNTER → 2018-08-26 | Outpatient (CLI) | payer MEDICARE ==
[2018-08-26] VITALS (7 sets, daily range): BP systolic 107–120; BP diastolic 62–77
[~2018-08-26] MED LIST changes: +DOBUTamine 1000MCG/ML 250 ML IV ONE
--- NOTE | 2018-08-26 08:00 | NUR ---
IV insertion IV access obtained SAVANNAH NMT, via clean sterile technique by inserting 22 gauge catheter at after 1 attempt(s). IV secured properly. No trauma to site. Patient tolerated procedure well.
--- NOTE | 2018-08-26 11:40 | NUR ---
IV removal IV DC'd with sterile technique, catheter fully intact. Pressure dressing applied to site. Patient tolerated procedure well.
--- NOTE | 2018-08-26 11:41 | NUR ---
CHF CLINIC Discharge Instructions See e-MAR for any mediations given with this visit. Patient education given on disease process. Patient verbalized understanding. Previous labs reviewed. Patient discharged in stable condition with after care instructions and follow up appointment. NOTE DOBUTAMINE INFUSION [id number] ADMIN BY MARIO CAMPOS.
[2018-08-26 12:30] LABS: Basophils # (auto) 0 uL; Basophils % (auto) 0.8 % (0.0-2.0); Eosinophils # (auto) 0 uL; Hematocrit 40.1 % (41.0-53.0); Hemoglobin 13.6 g/dL (13.5-17.5); Lymphocytes # (auto) 1.2 uL; Lymphocytes % (auto) 25.2 % (10.0-50.0); Mean Corpuscular Hgb Conc. 33.9 g/dL (32.0-36.0); Mean Corpuscular Volume 91.4 fL (80.0-100.0); Monocytes # (auto) 0.3 uL; Monocytes % (auto) 6.5 % (0.0-12.0); Neutrophils # (auto) 3.2 uL; Neutrophils % (auto) 66.5 % (37.0-80.0); Nucleated Red Blood Cells % 0.3 %; Platelet Count (auto) 266 10^3/uL (140-450); Red Blood Cells 4.39 10^6/uL (4.5-5.90); Red Cell Distribution Width 15.2 % (11.8-14.3); White Blood Cell 4.8 10^3/uL (4.4-10.8)
[2018-08-26 13:02] LABS: Potassium 3.9 mmol/L (3.5-5.1)
[2018-08-26 13:07] LABS: BUN/Creatinine Ratio 16.1; Calcium 8.5 mg/dL (8.5-10.1); Magnesium 1.8 mg/dL (1.6-2.6)
== END | disposition home or self-care (01) ==
LOC: CHF HDHVI 08:09
PROVIDERS: ATTEND Internal Medicine Cardiovascular Disease
DX: I13.0 Hypertensive heart and chronic kidney disease with heart failure and stage 1 through stage 4 chronic kidney disease, or unspecified chronic kidney disease (principal); E11.22 Type 2 diabetes mellitus with diabetic chronic kidney disease; E11.51 Type 2 diabetes mellitus with diabetic peripheral angiopathy without gangrene; E11.319 Type 2 diabetes mellitus with unspecified diabetic retinopathy without macular edema; E11.40 Type 2 diabetes mellitus with diabetic neuropathy, unspecified; N18.2 Chronic kidney disease, stage 2 (mild); I50.42 Chronic combined systolic (congestive) and diastolic (congestive) heart failure; E83.40 Disorders of magnesium metabolism, unspecified; D64.9 Anemia, unspecified; I25.10 Atherosclerotic heart disease of native coronary artery without angina pectoris; J44.9 Chronic obstructive pulmonary disease, unspecified; K21.9 Gastro-esophageal reflux disease without esophagitis; E78.5 Hyperlipidemia, unspecified; E66.01 Morbid (severe) obesity due to excess calories; I25.2 Old myocardial infarction; F11.21 Opioid dependence, in remission; M19.90 Unspecified osteoarthritis, unspecified site; F32.9 Major depressive disorder, single episode, unspecified; G89.4 Chronic pain syndrome; F41.9 Anxiety disorder, unspecified; Z87.891 Personal history of nicotine dependence; Z86.711 Personal history of pulmonary embolism; Z95.1 Presence of aortocoronary bypass graft; Z98.61 Coronary angioplasty status; Z95.810 Presence of automatic (implantable) cardiac defibrillator; Z79.01 Long term (current) use of anticoagulants; Z79.899 Other long term (current) drug therapy; Z79.02 Long term (current) use of antithrombotics/antiplatelets; Z79.82 Long term (current) use of aspirin; Z79.4 Long term (current) use of insulin
CPT/HCPCS: 36415; 80048; 83735; 83880; 85025; 96365; 96366; G0463; J1250

== ENCOUNTER 2018-12-10 04:30 | Inpatient (IN) | payer MEDICARE ==
[~2018-12-10] VITALS: Ht 177.8 cm; Wt 117.6 kg
[~2018-12-10 04:30] MED LIST changes: -ASPI-378 PO; -DOBUTamine 1000MCG/ML 250 ML IV ONE; -OYST500T28 PO; +PRAS5TAB3 PO; -SITA50TA PO; -WARF2TAB55 PO
[2018-12-10] MEDS ORDERED: MIDAZOLAM HCL 5 MG/ML-1ML VIAL ONE (04:37)
[2018-12-10] MEDS ORDERED: AMIODARONE HCL (50 MG/ ML) 3 ML VIAL IV ONE ×4 (04:37→05:00)
[2018-12-10] MEDS ORDERED: MORPHINE SULFATE 4 MG/ML SYR/VIAL ONE (04:42)
[2018-12-10] MEDS ORDERED: ONDANSETRON HCL 4 MG/2 ML VIAL ONE (04:42)
[2018-12-10] MEDS ORDERED: MAGNESIUM SULFATE 1GM/100ML 100 ML IV ONE ×2 (04:45→05:00)
[2018-12-10] MEDS ORDERED: MORPHINE SULFATE 4 MG/ML SYR/VIAL IV ONE ×2 (05:00→05:30)
[2018-12-10] MEDS ORDERED: ONDANSETRON HCL 4 MG/2 ML VIAL IV ONE (05:00)
[2018-12-10] MEDS ORDERED: MIDAZOLAM HCL 5 MG/ML-1ML VIAL IV ONE (05:00)
[2018-12-10] MEDS ORDERED: LIDOCAINE HCL 100 MG/5ML (2%) SYRG INJ IV ONE (05:00)
[2018-12-10] MEDS ORDERED: AMIODARONE HCL 300 MG in D5W 5% 100 ML IV ONE (05:00)
[2018-12-10] MEDS ORDERED: AMIODARONE HCL 900 MG in DEXTROSE 500 ML IV SCH (05:03)
[2018-12-10 05:13] LABS: Basophils # (auto) 0 uL; Basophils % (auto) 0.4 % (0.0-2.0); Eosinophils # (auto) 0.1 uL; Eosinophils % (auto) 1.7 % (0.0-7.0); Hematocrit 49.7 % (41.0-53.0); Hemoglobin 16.7 g/dL (13.5-17.5); Lymphocytes # (auto) 3.3 uL; Lymphocytes % (auto) 48.5 % (10.0-50.0); Mean Corpuscular Hemoglobin 30.3 pg (28.0-32.0); Mean Corpuscular Hgb Conc. 33.6 g/dL (32.0-36.0); Mean Corpuscular Volume 90.3 fL (80.0-100.0); Monocytes # (auto) 0.5 uL; Monocytes % (auto) 7.4 % (0.0-12.0); Neutrophils # (auto) 2.9 uL; Nucleated Red Blood Cells % 0.1 %; Platelet Count (auto) 240 10^3/uL (140-450); Red Blood Cells 5.51 10^6/uL (4.5-5.90); Red Cell Distribution Width 15.7 % (11.8-14.3); White Blood Cell 6.8 10^3/uL (4.4-10.8)
[2018-12-10 05:47] LABS: Albumin 3.5 g/dL (3.4-5.0); BUN/Creatinine Ratio 12.6; Calcium 8.5 mg/dL (8.5-10.1); Magnesium 1.8 mg/dL (1.6-2.6); Potassium 3.6 mmol/L (3.5-5.1)
[2018-12-10 05:53] LABS: Bilirubin, Total 0.5 mg/dL (0.2-1.0); Total Protein 7.4 g/dL (6.4-8.2)
[2018-12-10 06:02] LABS: INR 1.08 (0.9-1.15); Partial Thromboplastin Time 27.1 sec (23.64-32.05)
[2018-12-10] MEDS ORDERED: ACETAMINOPHEN 325 MG TAB PO PRN (07:15)
[2018-12-10] MEDS ORDERED: DEXTROSE (50%) 50ML SYRG IV PRN (07:15)
[2018-12-10] MEDS ORDERED: ENOXAPARIN SOD 30 MG/0.3 ML SYRINGE SC SCH (10:00)
[2018-12-10] MEDS: ISOSORBIDE MONONITRATE 60 MG TAB PO SCH (10:17)
[2018-12-10] MEDS: ASPirin 81 mg TAB PO SCH (10:17)
[2018-12-10] MEDS: SPIRONOLACTONE 25 MG TAB PO SCH (10:17)
[2018-12-10] MEDS: FUROSEMIDE 40 MG TAB PO SCH (10:17)
[2018-12-10] MEDS: CARVEDILOL 12.5 MG TAB PO SCH ×2 (10:17→22:20)
[2018-12-10] MEDS: FAMOTIDINE 20 MG TAB PO SCH ×2 (10:17→22:20)
[2018-12-10] MEDS: PRASUGREL HCL 10 MG TAB PO SCH (10:20)
[2018-12-10] MEDS: AMIODARONE HCL 900 MG in DEXTROSE 500 ML IV SCH ×2 (11:01→23:59)
[2018-12-10] MEDS: ACCU-CHEK COMFORT CURVE STRIP VI SCH ×2 (12:17→18:37)
[2018-12-10] MEDS: InsuLIN REG 1unit/0.01ml Soln (100units/ml) SC SCH ×2 (12:17→18:36)
[2018-12-10] MEDS: MORPHINE SULF INJ 2 MG/ML SYRINGE 1ML IV PRN ×3 (13:33→21:29)
[2018-12-10] MEDS: NITROGLYCERIN 0.4 MG SL TAB SL PRN ×2 (21:34→22:10)
[2018-12-10] MEDS: APIXABAN 5 MG TAB PO SCH (22:20)
[2018-12-11] MEDS: MORPHINE SULF INJ 2 MG/ML SYRINGE 1ML IV PRN ×7 (01:54→20:47)
[2018-12-11] MEDS: ONDANSETRON HCL 4 MG/2 ML VIAL IV PRN ×2 (01:54→20:47)
[2018-12-11] MEDS: NITROGLYCERIN 0.4 MG SL TAB SL PRN ×4 (02:07→23:44)
[2018-12-11 05:56] LABS: Basophils # (auto) 0 uL; Basophils % (auto) 0.4 % (0.0-2.0); Eosinophils # (auto) 0.1 uL; Hematocrit 48.4 % (41.0-53.0); Hemoglobin 16.1 g/dL (13.5-17.5); Lymphocytes # (auto) 1.9 uL; Lymphocytes % (auto) 24.3 % (10.0-50.0); Mean Corpuscular Hgb Conc. 33.2 g/dL (32.0-36.0); Mean Corpuscular Volume 90.3 fL (80.0-100.0); Monocytes # (auto) 0.6 uL; Monocytes % (auto) 7.3 % (0.0-12.0); Neutrophils # (auto) 5.3 uL; Nucleated Red Blood Cells % 0.1 %; Platelet Count (auto) 262 10^3/uL (140-450); Red Blood Cells 5.36 10^6/uL (4.5-5.90); Red Cell Distribution Width 15.7 % (11.8-14.3); White Blood Cell 7.9 10^3/uL (4.4-10.8)
[2018-12-11 06:02] LABS: Calcium 8.6 mg/dL (8.5-10.1); Potassium 4.1 mmol/L (3.5-5.1)
[2018-12-11 06:22] LABS: BUN/Creatinine Ratio 17.2
[2018-12-11] MEDS: InsuLIN REG 1unit/0.01ml Soln (100units/ml) SC SCH ×4 (06:23→18:25)
[2018-12-11] MEDS: ACCU-CHEK COMFORT CURVE STRIP VI SCH ×4 (06:23→18:25)
--- NOTE | 2018-12-11 09:34 | NUR ---
Informed primary RN that the [facility] facilities will require a specific order for the reason to transfer to [facility]. RN to call MD for clarification of ss order
[2018-12-11] MEDS: CARVEDILOL 12.5 MG TAB PO SCH ×2 (10:38→22:44)
[2018-12-11] MEDS: SPIRONOLACTONE 25 MG TAB PO SCH (10:38)
[2018-12-11] MEDS: ISOSORBIDE MONONITRATE 60 MG TAB PO SCH (10:39)
[2018-12-11] MEDS: FUROSEMIDE 40 MG TAB PO SCH (10:39)
[2018-12-11] MEDS: FAMOTIDINE 20 MG TAB PO SCH ×2 (10:39→22:45)
[2018-12-11] MEDS: APIXABAN 5 MG TAB PO SCH ×2 (10:40→22:44)
[2018-12-11] MEDS: PRASUGREL HCL 10 MG TAB PO SCH (10:40)
[2018-12-11] MEDS: ASPirin 81 mg TAB PO SCH (10:44)
--- NOTE | 2018-12-11 13:44 | NUR ---
TRANSFER: spoke to Mushtaq at [facility] and he stated they are waiting for bed
--- NOTE | 2018-12-11 14:11 | NUR ---
[facility] ON WILL CALL
[2018-12-12] MEDS: MORPHINE SULF INJ 2 MG/ML SYRINGE 1ML IV PRN ×3 (00:02→21:30)
[2018-12-12] MEDS: ACCU-CHEK COMFORT CURVE STRIP VI SCH ×5 (00:02→22:52)
[2018-12-12] MEDS: InsuLIN REG 1unit/0.01ml Soln (100units/ml) SC SCH ×5 (00:03→22:52)
[2018-12-12] MEDS: ONDANSETRON HCL 4 MG/2 ML VIAL IV PRN (06:57)
--- NOTE | 2018-12-12 08:48 | NUR ---
Transfer: Spoke to Josee at [facility] transfer center and she stated they have pt on priority to get bed and be transferred.
[2018-12-12] MEDS: NITROGLYCERIN 0.4 MG SL TAB SL PRN (09:08)
[2018-12-12] MEDS: ISOSORBIDE MONONITRATE 60 MG TAB PO SCH (09:41)
[2018-12-12] MEDS: ASPirin 81 mg TAB PO SCH (09:41)
[2018-12-12] MEDS: CARVEDILOL 12.5 MG TAB PO SCH ×2 (09:41→21:26)
[2018-12-12] MEDS: FAMOTIDINE 20 MG TAB PO SCH ×2 (09:41→21:27)
[2018-12-12] MEDS: PRASUGREL HCL 10 MG TAB PO SCH (09:41)
[2018-12-12] MEDS: APIXABAN 5 MG TAB PO SCH ×2 (09:41→21:27)
[2018-12-12] MEDS: SPIRONOLACTONE 25 MG TAB PO SCH (09:41)
[2018-12-12] MEDS: FUROSEMIDE 40 MG TAB PO SCH (09:41)
[2018-12-12] MEDS: AMIODARONE HCL 900 MG in DEXTROSE 500 ML IV SCH (11:01)
[2018-12-12] MEDS ORDERED: MORPHINE SULFATE 4 MG/ML SYR/VIAL ONE (11:10)
[2018-12-12] MEDS ORDERED: MORPHINE SULFATE 4 MG/ML SYR/VIAL IV PRN (11:15)
--- NOTE | 2018-12-12 15:49 | NUR ---
REVERIFIED [facility] ON WILL CALL
[2018-12-12 16:30] VITALS: BP 128/66
--- NOTE | 2018-12-12 16:30 | NUR ---
Admit to [facility] admitted to [facility] via gurney on playground monitor, and portable 02. Patient transferred to bed, connected to unit monitoring and oxygen, and weighed by bedscale. Patient alert and awake, no S/S of pain or respiratory distress. Denies chest pain at this time. Patient given Morphine 1111. Patient on 2 lpm oxygen via nasal cannula, saturation 96%. HR 69 A paced. Awaiting bed from [facility]. See interventions for complete assessment. Patient oriented to Inés zheng RN, unit, room, bed, and unit policies regarding patient care and visiting hours. All questions and concerns addressed, patient verbalized understanding. Bed locked on lowest position, side rails up x2, bed alarms on at all times, call ladd within reach, instructed to call for needed assistance. Will continue to monitor.
--- NOTE | 2018-12-12 19:00 | NUR ---
Received call from Dr Hollingsworth informing that he was able to speak with [facility] and that they can find a Facility for the patient. Telephone number [phone]. Received call from Enoc of [facility] ([phone]) informing that patient has a bed at [facility]. Received call from [facility] informing that they will give patient bed tonight. Patient informed of the available options and stated "I don't want to go to [place], I rather wait for a bed from [facility]." Dr Hollingsworth informed over the phone that patient refused to go to [place], verbalized understanding and states "I agree with that." Spoke to Enoc over the phone of [facility] and informed patient refused to go to [place].
[2018-12-12 19:45] VITALS: BP 93/61
--- NOTE | 2018-12-12 19:50 | NUR ---
Opening Shift Note Assumed care of patient, awake and alert and oriented. No S/S of distress/SOB or pain. Denied CP at this time.Patient aware of pending xfer. Instructed on POC and to call for assist PRN, will continue to monitor for changes frequently. See interventions for complete physical assessment.
--- NOTE | 2018-12-12 22:29 | NUR ---
SPOKE WITH ARCHIE Hollis2
--- NOTE | 2018-12-12 22:31 | NUR ---
SPOKE WITH MAGNUS FROM [facility] UPDATED ON ETA
--- NOTE | 2018-12-12 22:40 | NUR ---
SPOKE WITH PATTI CAMPOS AT [facility] REPORT GIVEN IN FULL DETAIL, CALL BACK NUMBER LEFT WITH RN FOR FURTHER QUESTIONS ALL QUESTIONS CONCERNS ADDRESSED
--- NOTE | 2018-12-12 23:30 | NUR ---
REPORT GIVEN TO TRANSACTION COORDINATOR KATHLEEN ALL QUESTIONS/CONCERNS ADDRESSED
--- NOTE | 2018-12-12 23:40 | NUR ---
Pt being trans to another hosp Order obtained for transfer of LINSEYARAVIND to [place]. Report called/given to Neida CAMPOS. Report given to RN , from [facility] transport team. Medication reconciliation form completed and copy given to patient. Transported via GURNEY along with copied chart and imaging films/disk and all personal belongings. No distress noted on time of departure. Family notified of destination and room number, verbalized understanding.
== END 2018-12-12 23:37 | disposition short-term general hospital (02) | DRG 315 ==
LOC: EDBD 04:30 → ER 04:30 → TELE 04:31 → DOU IN ICU 12-12 16:26
PROVIDERS: ADMIT Nurse Practitioner; ATTEND Internal Medicine Pulmonary Disease
DX: T82.119A Breakdown (mechanical) of unspecified cardiac electronic device, initial encounter (principal); I47.2 Ventricular tachycardia; I24.9 Acute ischemic heart disease, unspecified; Z95.1 Presence of aortocoronary bypass graft; I25.5 Ischemic cardiomyopathy; E11.65 Type 2 diabetes mellitus with hyperglycemia; Y71.2 Prosthetic and other implants, materials and accessory cardiovascular devices associated with adverse incidents; I11.0 Hypertensive heart disease with heart failure; J44.9 Chronic obstructive pulmonary disease, unspecified; I50.9 Heart failure, unspecified; E66.9 Obesity, unspecified; E78.5 Hyperlipidemia, unspecified; I25.10 Atherosclerotic heart disease of native coronary artery without angina pectoris; I25.2 Old myocardial infarction; Z82.49 Family history of ischemic heart disease and other diseases of the circulatory system; Z88.1 Allergy status to other antibiotic agents; Z88.8 Allergy status to other drugs, medicaments and biological substances; Z83.3 Family history of diabetes mellitus; Z87.891 Personal history of nicotine dependence; Z91.19 Patient's noncompliance with other medical treatment and regimen; Z95.810 Presence of automatic (implantable) cardiac defibrillator; Z68.37 Body mass index [BMI] 37.0-37.9, adult
CPT/HCPCS: 36415; 71045; 80048; 80053; 82962; 83735; 83880; 84484; 85025; 85379; 85610; 85730; 87081; 93005; 96365; 96367; 96375; G0378; J1815; J2250; J2405; J7060

== ENCOUNTER 2019-07-14 10:13 | Emergency (ER) | payer MEDICARE ==
[~2019-07-14] VITALS: Ht 182.9 cm; Wt 113.4 kg
[~2019-07-14 10:13] MED LIST changes: -AMI200T PO; +AMIO200T4 PO; +CLOP75TA41 PO; +FURO1TAB31 PO; -FURO40TA PO; -GLIP-115 PO; +GLIP5TAB12 PO; -HYDR-4683 PO; +HYDR-531 PO; -INSLANTI SC; -LIDO5DIS21 TOP; +MAGNTAB23 PO; +MEX150C PO; +MORP15TA PO; +NALO4SPR2; -PRAS5TAB3 PO; +SACU1TAB PO; -SPIR25TA8 PO
[2019-07-14 11:06] LABS: Basophils # (auto) 0 uL; Hematocrit 38.3 % (41.0-53.0); Hemoglobin 12.2 g/dL (13.5-17.5); Nucleated Red Blood Cells % 0.2 %; Red Blood Cells 4.59 10^6/uL (4.5-5.90)
[2019-07-14 11:11] LABS: Basophils % (auto) 0.6 % (0.0-2.0); Eosinophils # (auto) 0 uL; Eosinophils % (auto) 0.3 % (0.0-7.0); Lymphocytes # (auto) 0.8 uL; Lymphocytes % (auto) 17.6 % (10.0-50.0); Mean Corpuscular Hemoglobin 26.5 pg (28.0-32.0); Mean Corpuscular Hgb Conc. 31.8 g/dL (32.0-36.0); Mean Corpuscular Volume 83.5 fL (80.0-100.0); Monocytes # (auto) 0.5 uL; Monocytes % (auto) 10.2 % (0.0-12.0); Neutrophils # (auto) 3.2 uL; Neutrophils % (auto) 71.3 % (37.0-80.0); Platelet Count (auto) 220 10^3/uL (140-450); White Blood Cell 4.5 10^3/uL (4.4-10.8)
[2019-07-14 11:12] LABS: Red Cell Distribution Width 20.6 % (11.8-14.3)
[2019-07-14 11:21] LABS: INR 1.52 (0.9-1.15); Partial Thromboplastin Time 33.6 sec (23.64-32.05)
[2019-07-14 11:27] LABS: Albumin 3.5 g/dL (3.4-5.0); Calcium 8.9 mg/dL (8.5-10.1); Magnesium 1.9 mg/dL (1.6-2.6); Potassium 3.7 mmol/L (3.5-5.1)
[2019-07-14] MEDS ORDERED: ONDANSETRON HCL 4 MG/2 ML VIAL IV ONE (11:30)
[2019-07-14] MEDS ORDERED: MORPHINE SULFATE 4 MG/ML SYR/VIAL IM ONE (11:30)
[2019-07-14 11:32] LABS: BUN/Creatinine Ratio 10.8; Total Protein 7.2 g/dL (6.4-8.2)
[2019-07-14] MEDS ORDERED: FUROSEMIDE 20 MG/2 ML VIAL IV ONE (12:45)
[2019-07-14 14:09] VITALS: BP 109/76
[2019-07-14] MEDS ORDERED: HYDROcodone-ACET 10/325MG TAB PO ONE (15:15)
== END 2019-07-14 15:58 | disposition home or self-care (01) ==
LOC: ER 10:13 → EDBD 10:13 → ER 15:58
DX: R07.89 Other chest pain (principal); E11.65 Type 2 diabetes mellitus with hyperglycemia; I11.0 Hypertensive heart disease with heart failure; I50.9 Heart failure, unspecified; K72.90 Hepatic failure, unspecified without coma; E78.5 Hyperlipidemia, unspecified; I25.2 Old myocardial infarction; Z95.0 Presence of cardiac pacemaker; Z98.61 Coronary angioplasty status; Z87.891 Personal history of nicotine dependence; Z88.1 Allergy status to other antibiotic agents; Z79.899 Other long term (current) drug therapy
CPT/HCPCS: 36415; 71045; 80053; 83735; 83880; 84443; 84484; 85025; 85610; 85730; 93005; 96372; 96374; 96375; 99285; J1940; J2270; J2405

== ENCOUNTER 2019-09-21 20:32 | Inpatient (IN) | payer MEDICARE ==
[~2019-09-21] VITALS: Ht 177.8 cm; Wt 120.0 kg
[2019-09-21] MEDS ORDERED: HEPARIN SODIUM (PORCINE) 5000 UNITS/ML 1ML VIAL IV ONE (21:00)
[2019-09-21] MEDS ORDERED: MORPHINE SULFATE 4 MG/ML SYR/VIAL IV ONE (21:00)
[2019-09-21] MEDS ORDERED: ONDANSETRON HCL 4 MG/2 ML VIAL IV ONE (21:00)
[2019-09-21 21:14] LABS: Basophils # (auto) 0 10 ^3/uL (0-0.2); Basophils % (auto) 0.6 % (0.0-2.0); Eosinophils # (auto) 0 10 ^3/uL (0-0.8); Eosinophils % (auto) 0.4 % (0.0-7.0); Hematocrit 39.5 % (41.0-53.0); Hemoglobin 13.1 g/dL (13.5-17.5); Lymphocytes # (auto) 1.3 10 ^3/uL (0.4-5.4); Lymphocytes % (auto) 24.7 % (10.0-50.0); Mean Corpuscular Hemoglobin 29.4 pg (28.0-32.0); Mean Corpuscular Hgb Conc. 33.1 g/dL (32.0-36.0); Mean Corpuscular Volume 88.7 fL (80.0-100.0); Monocytes # (auto) 0.5 10 ^3/uL (0-1.3); Monocytes % (auto) 10.5 % (0.0-12.0); Neutrophils # (auto) 3.2 10 ^3/uL (1.6-8.6); Neutrophils % (auto) 63.8 % (37.0-80.0); Nucleated Red Blood Cells % 0.1 %; Platelet Count (auto) 168 10^3/uL (140-450); Red Blood Cells 4.46 10^6/uL (4.5-5.90); Red Cell Distribution Width 23.5 % (11.8-14.3); White Blood Cell 5.1 10^3/uL (4.4-10.8)
[2019-09-21 21:32] LABS: INR 1.34 (0.9-1.15); Partial Thromboplastin Time 28.5 sec (23.64-32.05)
[2019-09-21 21:35] LABS: Albumin 3.2 g/dL (3.4-5.0); Anion Gap 9 (5-15); Blood Urea Nitrogen 13 mg/dL (7-18); Calcium 8.3 mg/dL (8.5-10.1); Carbon Dioxide 25 mmol/L (21-32); Chloride 107 mmol/L (98-107); Glucose 271 mg/dL (74-106); Potassium 3.4 mmol/L (3.5-5.1); Sodium 141 mmol/L (136-145)
[2019-09-21 21:40] LABS: Alanine Aminotransferase 12 U/L (16-61); Alkaline Phosphatase 74 U/L (45-117); Aspartate Aminotransferase 18 U/L (15-37); Bilirubin, Total 0.9 mg/dL (0.2-1.0); GFR African American 96 mL/min; GFR Non-African American 79 mL/min
[2019-09-21] MEDS ORDERED: IOHEXOL 350 MG/ML 100ML IJ ONE (21:56)
[2019-09-21] MEDS ORDERED: POTASSIUM EFFERVESENT TAB 25 MEQ PO ONE (23:15)
[2019-09-21] MEDS ORDERED: FUROSEMIDE 20 MG/2 ML VIAL IV ONE (23:15)
[2019-09-21] MEDS ORDERED: NITROGLYCERIN 0.4 MG SL TAB SL PRN (23:30)
[2019-09-21] MEDS ORDERED: DEXTROSE (50%) 50ML SYRG IV PRN (23:30)
[2019-09-21] MEDS ORDERED: ONDANSETRON HCL 4 MG/2 ML VIAL IV PRN (23:30)
[2019-09-21] MEDS ORDERED: TEMAZEPAM 15 MG CAP PO PRN (23:30)
[2019-09-21] MEDS ORDERED: ACETAMINOPHEN 325 MG TAB PO PRN (23:30)
[2019-09-22] VITALS (7 sets, daily range): BP systolic 74–99; BP diastolic 52–77
[2019-09-22] MEDS: ACCU-CHEK COMFORT CURVE STRIP VI SCH ×4 (00:01→18:28)
[2019-09-22] MEDS ORDERED: FUROSEMIDE 20 MG/2 ML VIAL IV SCH (06:00)
[2019-09-22] MEDS: InsuLIN REG 1unit/0.01ml Soln (100units/ml) SC SCH ×4 (06:00→18:59)
[2019-09-22 06:25] LABS: Basophils # (auto) 0 10 ^3/uL (0-0.2); Basophils % (auto) 0.4 % (0.0-2.0); Eosinophils # (auto) 0.1 10 ^3/uL (0-0.8); Eosinophils % (auto) 0.9 % (0.0-7.0); Hematocrit 39.9 % (41.0-53.0); Hemoglobin 13.2 g/dL (13.5-17.5); Lymphocytes # (auto) 1.2 10 ^3/uL (0.4-5.4); Lymphocytes % (auto) 17.1 % (10.0-50.0); Mean Corpuscular Hemoglobin 29.3 pg (28.0-32.0); Mean Corpuscular Volume 88.8 fL (80.0-100.0); Neutrophils # (auto) 4.7 10 ^3/uL (1.6-8.6); Neutrophils % (auto) 67.6 % (37.0-80.0); Platelet Count (auto) 164 10^3/uL (140-450); Red Blood Cells 4.49 10^6/uL (4.5-5.90); White Blood Cell 6.9 10^3/uL (4.4-10.8)
[2019-09-22 06:48] LABS: Anion Gap 6 (5-15); Blood Urea Nitrogen 14 mg/dL (7-18); Calcium 8.5 mg/dL (8.5-10.1); Carbon Dioxide 26 mmol/L (21-32); Chloride 110 mmol/L (98-107); Glucose 124 mg/dL (74-106); Potassium 3.6 mmol/L (3.5-5.1); Sodium 142 mmol/L (136-145)
[2019-09-22 06:54] LABS: BUN/Creatinine Ratio 15.9; GFR African American 111 mL/min; GFR Non-African American 92 mL/min
[2019-09-22] MEDS: MORPHINE SULF INJ 2 MG/ML SYRINGE 1ML IV PRN ×2 (07:48→13:00)
[2019-09-22] MEDS: FAMOTIDINE 20 MG TAB PO SCH ×2 (09:42→22:00)
[2019-09-22] MEDS: APIXABAN 5 MG TAB PO SCH ×3 (09:42→21:59)
[2019-09-22] MEDS: SACUBITRIL-VALSARTAN 24mg/26mg TAB PO SCH ×2 (09:42→22:00)
[2019-09-22] MEDS: GABAPENTIN 300 MG CAP PO SCH ×2 (09:43→22:00)
[2019-09-22] MEDS: AMIODARONE HCL 200 MG TAB PO SCH ×2 (09:44→21:59)
[2019-09-22] MEDS: ISOSORBIDE MONONITRATE ER 60 MG TAB PO SCH (09:45)
[2019-09-22] MEDS: CLOPIDOGREL BISULFATE 75 MG TAB PO SCH (09:45)
[2019-09-22] MEDS: CARVEDILOL 12.5 MG TAB PO SCH ×2 (09:47→22:00)
[2019-09-22] MEDS ORDERED: ASPirin 81 mg TAB PO SCH (10:00)
[2019-09-22] MEDS ORDERED: FUROSEMIDE 40 MG/4 ML VIAL IV ONE (12:30)
[2019-09-22] MEDS ORDERED: FUROSEMIDE 100 MG/10ML VIAL IV ONE (13:15)
[2019-09-22] MEDS ORDERED: POTASSIUM CHL 20 Meq TABLET PO ONE (17:00)
[2019-09-22] MEDS: FUROSEMIDE 100 MG/10ML VIAL IV SCH (18:00)
[2019-09-22] MEDS: RANOLAZINE ER 500 MG TAB PO SCH (22:01)
[2019-09-22] MEDS: HYDROcodone-ACET 5/325MG TAB PO PRN (22:02)
[2019-09-23] MEDS: InsuLIN REG 1unit/0.01ml Soln (100units/ml) SC SCH ×5 (00:10→23:27)
[2019-09-23] MEDS: ACCU-CHEK COMFORT CURVE STRIP VI SCH ×5 (00:16→23:24)
[2019-09-23] MEDS: HYDROcodone-ACET 5/325MG TAB PO PRN ×2 (04:50→23:24)
[2019-09-23 05:00] VITALS: BP 97/57
[2019-09-23] MEDS: FUROSEMIDE 100 MG/10ML VIAL IV SCH (06:00)
[2019-09-23] MEDS: MORPHINE SULF INJ 2 MG/ML SYRINGE 1ML IV PRN ×3 (06:15→21:00)
[2019-09-23 06:53] LABS: Potassium 3.9 mmol/L (3.5-5.1)
[2019-09-23 07:07] LABS: BUN/Creatinine Ratio 18.3; Calcium 8.3 mg/dL (8.5-10.1)
[2019-09-23 08:00] VITALS: BP 101/69
[2019-09-23] MEDS: ASPirin 81 mg TAB PO SCH (10:00)
[2019-09-23] MEDS ORDERED: FUROSEMIDE 40 MG/4 ML VIAL IV ONE (10:15)
[2019-09-23] MEDS: GABAPENTIN 300 MG CAP PO SCH ×2 (10:32→21:50)
[2019-09-23] MEDS: AMIODARONE HCL 200 MG TAB PO SCH ×2 (10:32→21:50)
[2019-09-23] MEDS: CARVEDILOL 12.5 MG TAB PO SCH ×2 (10:32→21:50)
[2019-09-23] MEDS: POTASSIUM CHL 20 Meq TABLET PO SCH (10:32)
[2019-09-23] MEDS: APIXABAN 5 MG TAB PO SCH ×2 (10:32→21:50)
[2019-09-23] MEDS: CLOPIDOGREL BISULFATE 75 MG TAB PO SCH (10:35)
[2019-09-23] MEDS: FAMOTIDINE 20 MG TAB PO SCH ×2 (10:35→21:50)
[2019-09-23] MEDS: RANOLAZINE ER 500 MG TAB PO SCH ×2 (10:35→21:50)
[2019-09-23] MEDS: ISOSORBIDE MONONITRATE ER 60 MG TAB PO SCH (10:35)
[2019-09-23 12:00] VITALS: BP 108/70
[2019-09-23 16:54] VITALS: BP 90/61
[2019-09-23 22:00] VITALS: BP 108/74
[2019-09-24 04:56] VITALS: BP 112/79
[2019-09-24] MEDS: ACCU-CHEK COMFORT CURVE STRIP VI SCH ×4 (06:00→23:35)
[2019-09-24] MEDS: InsuLIN REG 1unit/0.01ml Soln (100units/ml) SC SCH ×4 (06:46→23:34)
[2019-09-24 08:52] VITALS: BP 96/60
[2019-09-24] MEDS: POTASSIUM CHL 20 Meq TABLET PO SCH (09:28)
[2019-09-24] MEDS: ASPirin 81 mg TAB PO SCH (09:28)
[2019-09-24] MEDS: APIXABAN 5 MG TAB PO SCH ×2 (09:29→21:31)
[2019-09-24] MEDS: CLOPIDOGREL BISULFATE 75 MG TAB PO SCH (09:29)
[2019-09-24] MEDS: ISOSORBIDE MONONITRATE ER 60 MG TAB PO SCH (09:29)
[2019-09-24] MEDS: AMIODARONE HCL 200 MG TAB PO SCH ×2 (09:29→21:31)
[2019-09-24] MEDS: GABAPENTIN 300 MG CAP PO SCH ×2 (09:30→21:32)
[2019-09-24] MEDS: FAMOTIDINE 20 MG TAB PO SCH ×2 (09:30→21:32)
[2019-09-24] MEDS: CARVEDILOL 12.5 MG TAB PO SCH (09:30)
[2019-09-24] MEDS: RANOLAZINE ER 500 MG TAB PO SCH ×2 (09:30→21:32)
[2019-09-24] MEDS: HYDROcodone-ACET 5/325MG TAB PO PRN (09:40)
[2019-09-24] MEDS ORDERED: FUROSEMIDE 40 MG/4 ML VIAL IV SCH (10:00)
[2019-09-24 12:37] VITALS: BP 109/71
[2019-09-24] MEDS: MORPHINE SULF INJ 2 MG/ML SYRINGE 1ML IV PRN ×2 (15:49→22:02)
[2019-09-24 16:42] VITALS: BP 89/67
[2019-09-24] MEDS: FUROSEMIDE 100 MG/10ML VIAL IV SCH (17:56)
[2019-09-24 21:24] VITALS: BP 107/77
[2019-09-24] MEDS: CARVEDILOL 3.125 MG TAB PO SCH (21:31)
[2019-09-24] MEDS: SACUBITRIL-VALSARTAN 24mg/26mg TAB PO SCH (21:31)
[2019-09-25] VITALS (7 sets, daily range): BP systolic 94–113; BP diastolic 53–73
[2019-09-25 05:37] LABS: Basophils # (auto) 0 10 ^3/uL (0-0.2); Basophils % (auto) 0.5 % (0.0-2.0); Eosinophils # (auto) 0 10 ^3/uL (0-0.8); Eosinophils % (auto) 0.9 % (0.0-7.0); Hematocrit 38.7 % (41.0-53.0); Lymphocytes # (auto) 0.8 10 ^3/uL (0.4-5.4); Lymphocytes % (auto) 16.2 % (10.0-50.0); Mean Corpuscular Hemoglobin 29.7 pg (28.0-32.0); Mean Corpuscular Hgb Conc. 33.6 g/dL (32.0-36.0); Mean Corpuscular Volume 88.6 fL (80.0-100.0); Monocytes # (auto) 0.7 10 ^3/uL (0-1.3); Monocytes % (auto) 13.5 % (0.0-12.0); Neutrophils # (auto) 3.6 10 ^3/uL (1.6-8.6); Neutrophils % (auto) 68.9 % (37.0-80.0); Nucleated Red Blood Cells % 0.3 %; Platelet Count (auto) 190 10^3/uL (140-450); Red Blood Cells 4.37 10^6/uL (4.5-5.90); White Blood Cell 5.2 10^3/uL (4.4-10.8)
[2019-09-25 05:38] LABS: Red Cell Distribution Width 22.8 % (11.8-14.3)
[2019-09-25] MEDS: FUROSEMIDE 100 MG/10ML VIAL IV SCH (05:48)
[2019-09-25] MEDS: InsuLIN REG 1unit/0.01ml Soln (100units/ml) SC SCH ×2 (05:49→12:00)
[2019-09-25] MEDS: ACCU-CHEK COMFORT CURVE STRIP VI SCH ×2 (05:49→11:59)
[2019-09-25 05:53] LABS: Calcium 8.3 mg/dL (8.5-10.1); Potassium 4.7 mmol/L (3.5-5.1)
[2019-09-25 05:59] LABS: Albumin 3.2 g/dL (3.4-5.0); BUN/Creatinine Ratio 20.2; Bilirubin, Total 1.1 mg/dL (0.2-1.0); Total Protein 6.6 g/dL (6.4-8.2)
[2019-09-25] MEDS: MORPHINE SULF INJ 2 MG/ML SYRINGE 1ML IV PRN (06:13)
[2019-09-25] MEDS: ASPirin 81 mg TAB PO SCH (09:53)
[2019-09-25] MEDS: CARVEDILOL 3.125 MG TAB PO SCH (09:54)
[2019-09-25] MEDS: AMIODARONE HCL 200 MG TAB PO SCH (09:54)
[2019-09-25] MEDS: GABAPENTIN 300 MG CAP PO SCH (09:55)
[2019-09-25] MEDS: FAMOTIDINE 20 MG TAB PO SCH (09:55)
[2019-09-25] MEDS: CLOPIDOGREL BISULFATE 75 MG TAB PO SCH (09:55)
[2019-09-25] MEDS: APIXABAN 5 MG TAB PO SCH (09:55)
[2019-09-25] MEDS: POTASSIUM CHL 20 Meq TABLET PO SCH (09:55)
[2019-09-25] MEDS: RANOLAZINE ER 500 MG TAB PO SCH (09:56)
[2019-09-25] MEDS: SACUBITRIL-VALSARTAN 24mg/26mg TAB PO SCH (09:57)
[2019-09-25] MEDS ORDERED: FUROSEMIDE 100 MG/10ML VIAL IV SCH (10:00)
[2019-09-25] MEDS: HYDROcodone-ACET 5/325MG TAB PO PRN (13:11)
== END 2019-09-25 17:45 | disposition home or self-care (01) | DRG 302 ==
LOC: EDBD 20:32 → ER 20:32 → TELE 20:33 → TELE-CENTR 23:54
PROVIDERS: ADMIT Nurse Practitioner; ATTEND Internal Medicine Nephrology
DX: I25.110 Atherosclerotic heart disease of native coronary artery with unstable angina pectoris (principal); I50.23 Acute on chronic systolic (congestive) heart failure; F11.20 Opioid dependence, uncomplicated; I42.9 Cardiomyopathy, unspecified; J44.9 Chronic obstructive pulmonary disease, unspecified; E66.9 Obesity, unspecified; F41.9 Anxiety disorder, unspecified; I50.82 Biventricular heart failure; Z95.810 Presence of automatic (implantable) cardiac defibrillator; Z98.61 Coronary angioplasty status; I11.0 Hypertensive heart disease with heart failure; Z95.1 Presence of aortocoronary bypass graft; Z91.11 Patient's noncompliance with dietary regimen; Z91.14 Patient's other noncompliance with medication regimen; E87.6 Hypokalemia; E11.9 Type 2 diabetes mellitus without complications; E78.5 Hyperlipidemia, unspecified; Z68.38 Body mass index [BMI] 38.0-38.9, adult; Z88.1 Allergy status to other antibiotic agents; I25.2 Old myocardial infarction; Z79.899 Other long term (current) drug therapy; Z82.49 Family history of ischemic heart disease and other diseases of the circulatory system; Z86.73 Personal history of transient ischemic attack (TIA), and cerebral infarction without residual deficits; Z91.19 Patient's noncompliance with other medical treatment and regimen; Z87.891 Personal history of nicotine dependence; Z83.3 Family history of diabetes mellitus; F32.9 Major depressive disorder, single episode, unspecified
CPT/HCPCS: 36415; 71045; 71275; 80048; 80053; 82962; 83735; 83880; 84443; 84484; 85025; 85379; 85610; 85730; 93005; 96374; 96375; 99291; G0378; J1815; J2405

== ENCOUNTER 2019-10-22 02:48 | Inpatient (IN) | payer MEDICARE, MEDICAID ==
[~2019-10-22] VITALS: Ht 177.8 cm; Wt 113.8 kg
[~2019-10-22 02:48] MED LIST changes: -CARV12.544 PO; -FENO54TA4 PO; -GLIP5TAB12 PO; -ISOS60TA PO; -NALO4SPR2
[2019-10-22 03:43] LABS: Basophils # (auto) 0 10 ^3/uL (0-0.2); Eosinophils # (auto) 0 10 ^3/uL (0-0.8); Eosinophils % (auto) 0.5 % (0.0-7.0); Hematocrit 35.1 % (41.0-53.0); Hemoglobin 11.7 g/dL (13.5-17.5); Lymphocytes # (auto) 0.9 10 ^3/uL (0.4-5.4); Lymphocytes % (auto) 23.7 % (10.0-50.0); Mean Corpuscular Hgb Conc. 33.2 g/dL (32.0-36.0); Mean Corpuscular Volume 87.3 fL (80.0-100.0); Monocytes # (auto) 0.4 10 ^3/uL (0-1.3); Monocytes % (auto) 11.2 % (0.0-12.0); Neutrophils # (auto) 2.5 10 ^3/uL (1.6-8.6); Neutrophils % (auto) 63.6 % (37.0-80.0); Nucleated Red Blood Cells % 0.1 %; Platelet Count (auto) 242 10^3/uL (140-450); Red Blood Cells 4.02 10^6/uL (4.5-5.90)
[2019-10-22] MEDS ORDERED: ONDANSETRON HCL 4 MG/2 ML VIAL IV ONE (03:45)
[2019-10-22] MEDS ORDERED: MORPHINE SULFATE 4 MG/ML SYR/VIAL IV ONE ×2 (03:45→06:00)
[2019-10-22 04:00] LABS: INR 1.44 (0.9-1.15); Partial Thromboplastin Time 30.3 sec (23.64-32.05)
[2019-10-22] MEDS ORDERED: FUROSEMIDE 20 MG/2 ML VIAL IV ONE (05:15)
[2019-10-22] MEDS ORDERED: LORazepam 2MG/ML-1ML VIAL IV ONE (06:00)
[2019-10-22] MEDS ORDERED: ONDANSETRON HCL 4 MG/2 ML VIAL IV PRN (06:45)
[2019-10-22] MEDS ORDERED: NITROGLYCERIN 0.4 MG SL TAB SL PRN (06:45)
[2019-10-22] MEDS ORDERED: DEXTROSE (50%) 50ML SYRG IV PRN (06:45)
[2019-10-22] MEDS ORDERED: TEMAZEPAM 15 MG CAP PO PRN (06:45)
[2019-10-22] MEDS ORDERED: ACETAMINOPHEN 325 MG TAB PO PRN (06:45)
[2019-10-22 07:35] LABS: Albumin 3.8 g/dL (3.4-5.0); Anion Gap 6 (5-15); Blood Urea Nitrogen 15 mg/dL (7-18); Calcium 8.8 mg/dL (8.5-10.1); Carbon Dioxide 24 mmol/L (21-32); Chloride 105 mmol/L (98-107); Glucose 161 mg/dL (74-106); Potassium 3.9 mmol/L (3.5-5.1); Sodium 135 mmol/L (136-145)
[2019-10-22 07:40] LABS: Alanine Aminotransferase 17 U/L (16-61); Alkaline Phosphatase 91 U/L (45-117); Aspartate Aminotransferase 12 U/L (15-37); BUN/Creatinine Ratio 15.3; GFR African American 98 mL/min; GFR Non-African American 81 mL/min; Total Protein 7.7 g/dL (6.4-8.2)
[2019-10-22 08:23] VITALS: BP 103/76
[2019-10-22] MEDS: ASPirin 81 mg TAB PO SCH (08:35)
[2019-10-22] MEDS: GABAPENTIN 300 MG CAP PO SCH ×2 (08:35→20:31)
[2019-10-22] MEDS: APIXABAN 5 MG TAB PO SCH ×2 (08:35→20:34)
[2019-10-22] MEDS: CLOPIDOGREL BISULFATE 75 MG TAB PO SCH (08:36)
[2019-10-22] MEDS: SACUBITRIL-VALSARTAN 24mg/26mg TAB PO SCH ×2 (08:36→22:00)
[2019-10-22] MEDS: PANTOPRAZOLE 40 MG TAB PO SCH (08:36)
[2019-10-22] MEDS: AMIODARONE HCL 200 MG TAB PO SCH ×2 (08:37→22:00)
[2019-10-22] MEDS: InsuLIN REG 1unit/0.01ml Soln (100units/ml) SC SCH ×4 (08:47→21:43)
[2019-10-22] MEDS: ACCU-CHEK COMFORT CURVE STRIP VI SCH ×4 (08:47→21:42)
[2019-10-22] MEDS ORDERED: RANOLAZINE ER 500 MG TAB PO ONE (10:15)
[2019-10-22] MEDS ORDERED: OPTISON 3ml Vial for INJ IV ONE (10:54)
[2019-10-22 12:44] VITALS: BP 83/60
[2019-10-22 16:17] VITALS: BP 85/62
[2019-10-22] MEDS: FUROSEMIDE 20 MG/2 ML VIAL IV SCH (17:21)
[2019-10-22] MEDS: MORPHINE SULF INJ 2 MG/ML SYRINGE 1ML IV PRN ×2 (20:35→21:44)
[2019-10-22] MEDS: RANOLAZINE ER 500 MG TAB PO SCH (22:00)
[2019-10-22 22:08] VITALS: BP 94/67
[2019-10-23] MEDS: MORPHINE SULF INJ 2 MG/ML SYRINGE 1ML IV PRN ×2 (02:54→08:47)
[2019-10-23 05:00] VITALS: BP 106/69
[2019-10-23] MEDS: InsuLIN REG 1unit/0.01ml Soln (100units/ml) SC SCH ×2 (06:50→11:58)
[2019-10-23] MEDS: FUROSEMIDE 20 MG/2 ML VIAL IV SCH (07:00)
[2019-10-23] MEDS: ACCU-CHEK COMFORT CURVE STRIP VI SCH ×2 (07:16→11:56)
[2019-10-23 07:48] LABS: Basophils # (auto) 0 10 ^3/uL (0-0.2); Basophils % (auto) 0.8 % (0.0-2.0); Eosinophils # (auto) 0.1 10 ^3/uL (0-0.8); Eosinophils % (auto) 2.6 % (0.0-7.0); Hematocrit 39.5 % (41.0-53.0); Hemoglobin 12.7 g/dL (13.5-17.5); Lymphocytes # (auto) 0.9 10 ^3/uL (0.4-5.4); Lymphocytes % (auto) 22.2 % (10.0-50.0); Mean Corpuscular Hemoglobin 28.6 pg (28.0-32.0); Mean Corpuscular Hgb Conc. 32.3 g/dL (32.0-36.0); Mean Corpuscular Volume 88.6 fL (80.0-100.0); Monocytes # (auto) 0.3 10 ^3/uL (0-1.3); Monocytes % (auto) 7.5 % (0.0-12.0); Neutrophils # (auto) 2.8 10 ^3/uL (1.6-8.6); Neutrophils % (auto) 66.9 % (37.0-80.0); Nucleated Red Blood Cells % 0.1 %; Platelet Count (auto) 198 10^3/uL (140-450); Red Blood Cells 4.46 10^6/uL (4.5-5.90); Red Cell Distribution Width 19.8 % (11.8-14.3); White Blood Cell 4.2 10^3/uL (4.4-10.8)
[2019-10-23] MEDS: ASPirin 81 mg TAB PO SCH (08:45)
[2019-10-23] MEDS: AMIODARONE HCL 200 MG TAB PO SCH (08:45)
[2019-10-23] MEDS: APIXABAN 5 MG TAB PO SCH (08:45)
[2019-10-23] MEDS: SACUBITRIL-VALSARTAN 24mg/26mg TAB PO SCH (08:46)
[2019-10-23] MEDS: RANOLAZINE ER 500 MG TAB PO SCH (08:46)
[2019-10-23] MEDS: GABAPENTIN 300 MG CAP PO SCH (08:46)
[2019-10-23] MEDS: CLOPIDOGREL BISULFATE 75 MG TAB PO SCH (08:46)
[2019-10-23] MEDS: PANTOPRAZOLE 40 MG TAB PO SCH (08:46)
[2019-10-23 09:00] VITALS: BP 91/67
[2019-10-23] MEDS ORDERED: RANOLAZINE ER 500 MG TAB PO ONE (11:15)
[2019-10-23 13:00] VITALS: BP 91/55
[2019-10-23] MEDS ORDERED: RANOLAZINE ER 500 MG TAB PO SCH (22:00)
== END 2019-10-23 14:35 | disposition home or self-care (01) | DRG 292 ==
LOC: EDBD 02:48 → ER 02:50 → TELE 02:51 → TELE-WESTW 07:35
PROVIDERS: ADMIT Nurse Practitioner; ATTEND Family Medicine
DX: I11.0 Hypertensive heart disease with heart failure (principal); I24.9 Acute ischemic heart disease, unspecified; I25.10 Atherosclerotic heart disease of native coronary artery without angina pectoris; J44.9 Chronic obstructive pulmonary disease, unspecified; E11.21 Type 2 diabetes mellitus with diabetic nephropathy; E11.40 Type 2 diabetes mellitus with diabetic neuropathy, unspecified; M19.90 Unspecified osteoarthritis, unspecified site; F41.9 Anxiety disorder, unspecified; F32.9 Major depressive disorder, single episode, unspecified; E78.5 Hyperlipidemia, unspecified; I48.91 Unspecified atrial fibrillation; G47.30 Sleep apnea, unspecified; D64.9 Anemia, unspecified; Z88.1 Allergy status to other antibiotic agents; Z95.810 Presence of automatic (implantable) cardiac defibrillator; Z95.5 Presence of coronary angioplasty implant and graft; Z88.8 Allergy status to other drugs, medicaments and biological substances; Z79.899 Other long term (current) drug therapy; Z86.73 Personal history of transient ischemic attack (TIA), and cerebral infarction without residual deficits; Z95.1 Presence of aortocoronary bypass graft; Z83.3 Family history of diabetes mellitus; Z82.49 Family history of ischemic heart disease and other diseases of the circulatory system; Z87.891 Personal history of nicotine dependence; Z80.8 Family history of malignant neoplasm of other organs or systems; Z79.4 Long term (current) use of insulin; I50.82 Biventricular heart failure; I42.9 Cardiomyopathy, unspecified
CPT/HCPCS: 36415; 71045; 80053; 82962; 83735; 83880; 84484; 85025; 85610; 85730; 93005; 93306; 96374; 96375; 96376; G0378; J1815; J2405; Q9956

== ENCOUNTER 2019-10-29 09:57 | Inpatient (IN) | payer MEDICARE, MEDICAID ==
[~2019-10-29] VITALS: Ht 177.8 cm; Wt 111.0 kg
[2019-10-29] MEDS ORDERED: NITROGLYCERIN 50MG/250ML 250 ML IV ONE (10:13)
[2019-10-29] MEDS ORDERED: MORPHINE SULFATE 4 MG/ML SYR/VIAL IV ONE (10:15)
[2019-10-29] MEDS ORDERED: ONDANSETRON HCL 4 MG/2 ML VIAL IV ONE (10:15)
[2019-10-29] MEDS ORDERED: ENOXAPARIN SOD 100 MG/1 ML SYRINGE SC ONE (10:15)
[2019-10-29 10:55] LABS: Basophils # (auto) 0 10 ^3/uL (0-0.2); Basophils % (auto) 0.4 % (0.0-2.0); Eosinophils # (auto) 0 10 ^3/uL (0-0.8); Eosinophils % (auto) 0.2 % (0.0-7.0); Hematocrit 37.7 % (41.0-53.0); Hemoglobin 12.1 g/dL (13.5-17.5); Lymphocytes % (auto) 19.1 % (10.0-50.0); Mean Corpuscular Volume 87.7 fL (80.0-100.0); Monocytes # (auto) 0.5 10 ^3/uL (0-1.3); Monocytes % (auto) 8.7 % (0.0-12.0); Neutrophils # (auto) 3.9 10 ^3/uL (1.6-8.6); Neutrophils % (auto) 71.6 % (37.0-80.0); Nucleated Red Blood Cells % 0.1 %; Platelet Count (auto) 208 10^3/uL (140-450); Red Cell Distribution Width 19.2 % (11.8-14.3); White Blood Cell 5.4 10^3/uL (4.4-10.8)
[2019-10-29 11:15] LABS: Alanine Aminotransferase 14 U/L (16-61); Albumin 3.4 g/dL (3.4-5.0); Anion Gap 8 (5-15); Blood Urea Nitrogen 12 mg/dL (7-18); Calcium 8.4 mg/dL (8.5-10.1); Carbon Dioxide 25 mmol/L (21-32); Chloride 105 mmol/L (98-107); Glucose 179 mg/dL (74-106); INR 1.28 (0.9-1.15); Partial Thromboplastin Time 28.6 sec (23.64-32.05); Potassium 3.9 mmol/L (3.5-5.1); Sodium 138 mmol/L (136-145)
[2019-10-29 11:20] LABS: Alkaline Phosphatase 76 U/L (45-117); Aspartate Aminotransferase 10 U/L (15-37); BUN/Creatinine Ratio 13.5; GFR African American 110 mL/min; GFR Non-African American 91 mL/min
[2019-10-29] MEDS ORDERED: ANGIOMAX 250 MG VIAL IV ONE (11:22)
[2019-10-29] MEDS ORDERED: fentaNYL CITRATE 100 MCG/2 ML VL ONE (11:23)
[2019-10-29] MEDS ORDERED: MIDAZOLAM HCL 1MG/1ML-2 ML VIAL ONE (11:23)
[2019-10-29] MEDS ORDERED: SODIUM CHL 0.9% 0 ML ONE (11:23)
[2019-10-29] MEDS ORDERED: IOHEXOL 350 MG/ML 100ML IJ ONE (11:23)
[2019-10-29] MEDS ORDERED: diphenhdrAMINE HCL 50 MG/1 ML VL ONE (11:23)
[2019-10-29] MEDS ORDERED: LIDOCAINE 2%HCL (LOCAL ANESTH.) INJ 20ML MDV ONE (11:23)
[2019-10-29] MEDS ORDERED: NITROGLYCERIN 0.2MG/HR TOPICAL PATCH TD ONE ×2 (14:00→14:31)
[2019-10-29] MEDS: FUROSEMIDE 20 MG/2 ML VIAL ONE (14:29)
[2019-10-29] MEDS ORDERED: DEXTROSE (50%) 50ML SYRG IV PRN (14:30)
[2019-10-29] MEDS ORDERED: traMADol HCL 50 MG TAB PO PRN (14:30)
[2019-10-29] MEDS ORDERED: HYDROcodone-ACET 5/325MG TAB PO PRN (14:30)
[2019-10-29] MEDS ORDERED: LACTULOSE 20Gm/30ML SOLN PO PRN (14:30)
[2019-10-29] MEDS ORDERED: ALBUTEROL SULF 2.5 MG/0.5ML(0.5%) NEB SOLN NEB PRN (14:30)
[2019-10-29] MEDS ORDERED: TEMAZEPAM 15 MG CAP PO PRN (14:30)
[2019-10-29] MEDS ORDERED: ACETAMINOPHEN 500 MG TAB PO PRN (14:30)
[2019-10-29] MEDS ORDERED: MORPHINE SULF INJ 2 MG/ML SYRINGE 1ML IV PRN (14:30)
[2019-10-29] MEDS ORDERED: levoFLOXacin 500MG 100 ML IV SCH (14:34)
[2019-10-29] MEDS: ACCU-CHEK COMFORT CURVE STRIP VI SCH ×2 (17:00→21:46)
--- NOTE | 2019-10-29 17:05 | NUR ---
STAT EKG DONE, DRS. MISHRA AND KANDY NOTIFIED RE: FINDINGS OF "[facility]." SE COMMUNICATION NOTE RE: DR. GAITAN'S INSTRUCTION FOR NO FURTHER INTERVENTION FOR PT. DUE TO HX OF WORSENING HEART DISEASE.
[2019-10-29] MEDS: FUROSEMIDE 40 MG/4 ML VIAL IV SCH (17:46)
[2019-10-29] MEDS ORDERED: DOXYCYCLINE 100MG/250ML 250 ML IV SCH (18:00)
--- NOTE | 2019-10-29 18:10 | NUR ---
Telemetry admit from [employer] [facility] admitted to Telemetry unit after SBAR received. Patient oriented to ALEXANDER RAMEY,RN primary RN, unit, room, bed, and unit policies regarding patient care and visiting hours. Patient now on continuous telemetry monitoring, tele box #26 and telemetry reading on arrival to unit is ST @104 BPM. Patient placed on bedside oxygen @ 3LN/C, weighed by bedscale and encouraged to call if they need something. Bed in lowest/hang position, bed rails up x2, call light within reach. All questions and concerns addressed, patient verbalized understanding.
--- NOTE | 2019-10-29 18:25 | NUR ---
PAIN PATIENT C/O PAIN 8/10 GENERALIZED BODY ACHES. WILL MEDICATE PER MD ORDER
[2019-10-29 18:29] VITALS: BP 108/84
[2019-10-29] MEDS ORDERED: METOPROLOL TARTRATE 25 MG TAB PO ONE (18:30)
[2019-10-29] MEDS: TAMSULOSIN HYDROCHLORIDE 0.4 MG CAP PO SCH (18:53)
[2019-10-29] MEDS: MORPHINE SULF INJ 2 MG/ML SYRINGE 1ML IV PRN ×2 (18:54→23:27)
--- NOTE | 2019-10-29 18:55 | NUR ---
MRSA MRSA SWAB SENT TO LAB PER PROTOCOL
[2019-10-29] MEDS: InsuLIN REG 1unit/0.01ml Soln (100units/ml) SC SCH ×2 (19:00→22:41)
[2019-10-29] MEDS: IPRATROPIUM BROM 0.5 MG/2.5ML INH SOL NEB SCH (19:13)
[2019-10-29] MEDS: ALBUTEROL SULF 2.5 MG/0.5ML(0.5%) NEB SOLN NEB SCH (19:13)
[2019-10-29 19:52] VITALS: BP 108/84
[2019-10-29] MEDS: HYDROcodone-ACET 5/325MG TAB PO PRN (20:16)
[2019-10-29] MEDS: SODIUM CHLOR 0.9% PF (SALINE LOCK) 10ML VIAL/SYR IV SCH (21:44)
[2019-10-29] MEDS: DOCUSATE SOD 100 MG CAP PO SCH (21:44)
[2019-10-29] MEDS: CLINDAMYCIN 600MG IV 50 ML IV SCH (21:44)
[2019-10-29] MEDS: SACUBITRIL-VALSARTAN 24mg/26mg TAB PO SCH (21:45)
[2019-10-29] MEDS: APIXABAN 5 MG TAB PO SCH (21:45)
[2019-10-29] MEDS: AMIODARONE HCL 200 MG TAB PO SCH (21:45)
[2019-10-29] MEDS: GABAPENTIN 300 MG CAP PO SCH (21:46)
[2019-10-29] MEDS: METOPROLOL TARTRATE 25 MG TAB PO SCH (21:46)
[2019-10-29] MEDS: DOXYCYCLINE 100 MG TAB/CAP PO SCH (21:46)
[2019-10-29] MEDS: MEXILETINE HYDROCHLORIDE 150 MG CAP PO SCH (21:46)
[2019-10-29 22:00] VITALS: BP 83/67
[2019-10-29] MEDS: [UNRECOGNIZED DRUG - OTHER] PO SCH (22:00)
[2019-10-29] MEDS ORDERED: ALBUMIN 5% 250 ML IV ONE ×2 (22:23→22:30)
[2019-10-30] VITALS (36 sets, daily range): BP systolic 86–116; BP diastolic 53–79
[2019-10-30] MEDS: IPRATROPIUM BROM 0.5 MG/2.5ML INH SOL NEB SCH ×4 (00:07→18:59)
[2019-10-30] MEDS: ALBUTEROL SULF 2.5 MG/0.5ML(0.5%) NEB SOLN NEB SCH ×4 (00:07→18:59)
[2019-10-30] MEDS: FUROSEMIDE 40 MG/4 ML VIAL IV SCH (06:00)
[2019-10-30] MEDS: CLINDAMYCIN 600MG IV 50 ML IV SCH (06:02)
[2019-10-30] MEDS: SODIUM CHLOR 0.9% PF (SALINE LOCK) 10ML VIAL/SYR IV SCH ×3 (06:03→22:00)
[2019-10-30] MEDS: MEXILETINE HYDROCHLORIDE 150 MG CAP PO SCH ×3 (06:03→21:53)
[2019-10-30] MEDS: InsuLIN REG 1unit/0.01ml Soln (100units/ml) SC SCH ×4 (06:20→22:00)
[2019-10-30] MEDS: ACCU-CHEK COMFORT CURVE STRIP VI SCH ×4 (06:20→22:04)
--- NOTE | 2019-10-30 08:00 | NUR ---
Opening Shift Note Assumed care of patient, awake, alert, and oriented. No S/S of distress/SOB or pain. Bed in lowest/locked position, bed rails up x2, call light within reach. Instructed on POC and to call for assist PRN. Will continue to monitor for changes Q1hr and PRN.
[2019-10-30 09:22] LABS: Basophils # (auto) 0 10 ^3/uL (0-0.2); Basophils % (auto) 1.2 % (0.0-2.0); Eosinophils # (auto) 0 10 ^3/uL (0-0.8); Eosinophils % (auto) 1.2 % (0.0-7.0); Hematocrit 39.7 % (41.0-53.0); Hemoglobin 12.9 g/dL (13.5-17.5); Lymphocytes # (auto) 0.8 10 ^3/uL (0.4-5.4); Mean Corpuscular Hemoglobin 28.7 pg (28.0-32.0); Mean Corpuscular Hgb Conc. 32.4 g/dL (32.0-36.0); Mean Corpuscular Volume 88.7 fL (80.0-100.0); Monocytes # (auto) 0.3 10 ^3/uL (0-1.3); Monocytes % (auto) 8.9 % (0.0-12.0); Neutrophils # (auto) 1.8 10 ^3/uL (1.6-8.6); Neutrophils % (auto) 60.7 % (37.0-80.0); Nucleated Red Blood Cells % 0.1 %; Platelet Count (auto) 161 10^3/uL (140-450); Red Blood Cells 4.48 10^6/uL (4.5-5.90)
[2019-10-30 09:45] LABS: Albumin 3.8 g/dL (3.4-5.0); Calcium 8.8 mg/dL (8.5-10.1); Potassium 3.6 mmol/L (3.5-5.1)
[2019-10-30 09:48] LABS: Bilirubin, Total 1.2 mg/dL (0.2-1.0); Total Protein 7.6 g/dL (6.4-8.2)
[2019-10-30] MEDS: DOCUSATE SOD 100 MG CAP PO SCH ×2 (09:57→21:53)
[2019-10-30] MEDS: APIXABAN 5 MG TAB PO SCH ×2 (09:57→21:54)
[2019-10-30] MEDS: AMIODARONE HCL 200 MG TAB PO SCH ×2 (09:57→21:56)
[2019-10-30] MEDS: CLOPIDOGREL BISULFATE 75 MG TAB PO SCH (09:57)
[2019-10-30] MEDS: GABAPENTIN 300 MG CAP PO SCH ×2 (09:58→21:54)
[2019-10-30] MEDS: PANTOPRAZOLE 40 MG TAB PO SCH (09:58)
[2019-10-30] MEDS: ASPirin 81 mg TAB PO SCH (09:58)
[2019-10-30] MEDS: DOXYCYCLINE 100 MG TAB/CAP PO SCH (09:58)
[2019-10-30] MEDS: SACUBITRIL-VALSARTAN 24mg/26mg TAB PO SCH (09:58)
[2019-10-30] MEDS ORDERED: FUROSEMIDE 40 MG TAB PO SCH (10:00)
[2019-10-30] MEDS: METOPROLOL TARTRATE 25 MG TAB PO SCH (10:00)
[2019-10-30] MEDS ORDERED: NITROGLYCERIN 0.2MG/HR TOPICAL PATCH TD SCH (10:00)
[2019-10-30] MEDS: [UNRECOGNIZED DRUG - OTHER] PO SCH ×2 (10:00→21:56)
[2019-10-30] MEDS: MORPHINE SULF INJ 2 MG/ML SYRINGE 1ML IV PRN ×3 (10:25→21:45)
[2019-10-30] MEDS ORDERED: DOBUTamine 1000MCG/ML 250 ML IV SCH (10:30)
--- NOTE | 2019-10-30 10:30 | NUR ---
MD ROUNDS DR CARRILLO AT BEDSIDE DISCUSSING POC WITH PATIENT. NEW ORDERS RECEIVED/ WILL CARRY OUT. WILL CONTINUE TO MONITOR
--- NOTE | 2019-10-30 12:00 | NUR ---
PHONE CALL RECEIVED PHONE CALL FROM ALEC DRUMMOND RE: PATIENT UPGRADE STATUS TO [facility]. PHARMACY BUYER MADE AWARE. BED NUMBER AND RN FROM [facility] RECEIVED
--- NOTE | 2019-10-30 14:38 | NUR ---
[facility] TRANSF[facility] PATIENT TRANSFERRED TO [facility]. SBAR GIVEN TO ANDRES DARNELL. ALL QUESTIONS/CONCERNS ANSWERED. NO S/S OF DISTRESS, SOB, NO C/O PAIN AT TRANSFER
--- NOTE | 2019-10-30 14:40 | NUR ---
RECEIVED PATIENT FROM THE MED/SURG FLOOR WITH DIAGNOSIS OF C/P WITH S/P HEART CATH, PATIENT HAS ORDERERS TO GO TRANSFER TO [facility], VS 94'4--/56 92%, DOBUTAMINE INFUSING INTO THE LFA AT 5MG/KG/MIN BY THE IV PUMP, STATES HE CAN USE THE URINAL, A/O TIMES 4, STATES HE IS ABLE TO WALK AND WAS MOVING AROUND THE ROOM, RT HAND WITH 18G FLUSHED AND PATENT
--- NOTE | 2019-10-30 15:00 | NUR ---
ASKING FOR MORPHINE FOR PAIN EXPRESS TO HIM THAT HIS B/P WAS LESS THAN A HUNDRED AND I DIDN'T FEEL COMFORTABLE GIVING HIM MS AT THIS TIME, STATED HE UNDERSTOOD
--- NOTE | 2019-10-30 15:38 | NUR ---
MEDICATED FOR PAIN WITH MORPHINE 10/10 TO THE CHEST AND BODY GAVE OVER 5 MINUTES
[2019-10-30] MEDS: DOBUTamine 1000MCG/ML 250 ML IV SCH ×2 (16:15→20:00)
--- NOTE | 2019-10-30 16:33 | NUR ---
1633 - 10/30/[address] [facility] transfer center coordinator at [phone] and spoke with Dimple who confirmed receipt of all faxed documentation regarding request for transfer to higher level of care. Dimple stated that the team was working on the packet.
--- NOTE | 2019-10-30 16:35 | NUR ---
PATIENT SITTING UP IN BED, EYES CLOSED APPEARS TO BE SLEEPING, NOT COMPLAINING OF PAIN
--- NOTE | 2019-10-30 17:30 | NUR ---
SITTING UP IN THE BED APPEARS TO BE SLEEPING
[2019-10-30] MEDS: TAMSULOSIN HYDROCHLORIDE 0.4 MG CAP PO SCH (18:16)
[2019-10-30] MEDS: FUROSEMIDE 20 MG/2 ML VIAL IV SCH (18:18)
--- NOTE | 2019-10-30 18:25 | NUR ---
WOKEN UP TO EAT HIS DINNER, O2 AT 2L BY N/C USES THE URINAL, DOBUTAMINE INFUSING INTO THE LFA AT 5MG/KG/MIN BY THE IV PUMP, NOT COMPLAINING OF PAIN AT THIS TIME, A/O TIMES4, SALINE LOCK TO THE RT HAND 18G INTACT AND PATENT, WILL CONTINUE TO MONITOR AND GIVE REPORT TO THE NEXT SHIFT
--- NOTE | 2019-10-30 18:52 | NUR ---
RT NOTE PT WAS SEEN BY RT FOR HHN TX. PT TOLERATES WELL VIA MASK. NO ADVERSE REACTION NOTED. CONT ORDERED Addendum: 10/30/19 at 1915 by Jody Santoro RT Amended: Links added.
--- NOTE | 2019-10-30 20:00 | NUR ---
TRANSFERED HERE AT 1438 FROM [facility]. ON THE BEDSIDE MONITOR. HEART RATE IS CONSISTENTLY 70, ATRIALLY PACED. SBP STABLE. NO FEVER. 1000CC FLUID RESTRICTION. 2GM NA DIET. HAS NOT VOIDED SINCE TRANSFER HERE. 2 PERIPHERAL IVS. HAS DOBUTREX AT 5 MCG/KG/MIN. O2 2LNP. FAXED INFORMATION SENT TO [facility] FOR HLOC (HEART TRANSPLANT). 10/29/2019 HAD A LEFT HEART CATH BY DR GAITAN. PER REPORT HE HAS AN OCCLUDED RCA GRAFT. NO TREATMENT AT THIS TIME.
--- NOTE | 2019-10-30 21:45 | NUR ---
IV PAIN MED GIVEN FOR CHEST PAIN.
[2019-10-30] MEDS: CARVEDILOL 3.125 MG TAB PO SCH ×2 (21:55→22:55)
--- NOTE | 2019-10-30 22:00 | NUR ---
I HAVE TRIED TO PLACE 3 CONDOM CATHS AND THEY ALL FALL OFF. THE SHAFT IS SMALL AND HE PLAYS WITH IT. SPOKE TO THE COUSIN, SHE WAS SAYING THAT HE NEEDS THE HYTRIN. RIGHT NOW, HE HAS NO BOWEL SOUNDS AND THE OUTPUT THROUGH HIS NGT IS LARGE. I'M TRYING IT NOW AND SEE IF ANY OF IT ABSORBS. CALL IN TO DR LEON, HE GAVE US AN ORDER FOR A LIMA. THIS ISSUE OF URINATING PAST THE CONDOM HAS BEEN A PROBLEM ALL DAY.
--- NOTE | 2019-10-30 22:01 | NUR ---
PATIENT STATES THAT HE HAS CHRONIC CHEST PAIN, IS REQUESTING SOMETHING FOR PAIN. MORPHINE GIVEN.DISCUSSED ALL HIS MEDS. HE IS REASONABLY AWARE OF WHY HE IS GETTING ALL HIS MEDS. AWARE OF THE ORDER. NOTED REDNESS OF LOWER EXTREMITIES. PEDAL PULSES ARE NOT PALPABLE. STATED THAT HE HAS PERIPHERAL NEUROPATHY AND HIS FEET ARE ALWAYS PAINFUL. IV SITES SHOW NO REDNESS OR SWELLING.
--- NOTE | 2019-10-30 23:14 | NUR ---
DISREGARD PREVIOUS NOTE, WRONG CHART
[2019-10-31] VITALS (95 sets, daily range): BP systolic 9–130; BP diastolic 48–104
--- NOTE | 2019-10-31 | NUR ---
STATED TO ME THAT IT WAS HIS DRUG USE THAT LED TO THE LOSS OF HIS HEART. VSS. ATRIALLY PACED. SBP 90-110 SYSTOLIC.
--- NOTE | 2019-10-31 00:17 | NUR ---
RTNOTE PT WAS SEEN BY RT FOR HHN TX. PT TOLERATES WELL VIA MASK. NO ADVERSE REACTION NOTED. CONT ORDERED Addendum: 10/31/19 at 0132 by Jody Santoro RT Amended: Links added.
[2019-10-31] MEDS: IPRATROPIUM BROM 0.5 MG/2.5ML INH SOL NEB SCH ×5 (00:18→23:56)
[2019-10-31] MEDS: ALBUTEROL SULF 2.5 MG/0.5ML(0.5%) NEB SOLN NEB SCH ×5 (00:19→23:57)
[2019-10-31] MEDS: MORPHINE SULF INJ 2 MG/ML SYRINGE 1ML IV PRN ×5 (02:19→23:45)
[2019-10-31 03:46] LABS: Anion Gap 9 (5-15); BUN/Creatinine Ratio 15.6; Blood Urea Nitrogen 12 mg/dL (7-18); Carbon Dioxide 25 mmol/L (21-32); Chloride 103 mmol/L (98-107); GFR African American 130 mL/min; GFR Non-African American 107 mL/min; Glucose 159 mg/dL (74-106); Potassium 4.1 mmol/L (3.5-5.1); Sodium 137 mmol/L (136-145)
[2019-10-31 03:50] LABS: Basophils # (auto) 0 10 ^3/uL (0-0.2); Basophils % (auto) 0.6 % (0.0-2.0); Eosinophils # (auto) 0 10 ^3/uL (0-0.8); Eosinophils % (auto) 1.2 % (0.0-7.0); Hematocrit 36.7 % (41.0-53.0); Lymphocytes # (auto) 0.6 10 ^3/uL (0.4-5.4); Lymphocytes % (auto) 15.6 % (10.0-50.0); Mean Corpuscular Hemoglobin 28.4 pg (28.0-32.0); Mean Corpuscular Hgb Conc. 32.7 g/dL (32.0-36.0); Mean Corpuscular Volume 86.7 fL (80.0-100.0); Monocytes # (auto) 0.4 10 ^3/uL (0-1.3); Monocytes % (auto) 9.4 % (0.0-12.0); Neutrophils # (auto) 2.8 10 ^3/uL (1.6-8.6); Neutrophils % (auto) 73.2 % (37.0-80.0); Nucleated Red Blood Cells % 0.1 %; Platelet Count (auto) 143 10^3/uL (140-450); Red Blood Cells 4.23 10^6/uL (4.5-5.90); Red Cell Distribution Width 18.7 % (11.8-14.3); White Blood Cell 3.9 10^3/uL (4.4-10.8)
[2019-10-31] MEDS: DOBUTamine 1000MCG/ML 250 ML IV SCH ×3 (04:00→18:37)
--- NOTE | 2019-10-31 04:00 | NUR ---
OFFERED HIM A NORCO FOR CHEST DISCOMFORT. HE STATED THAT AT HOME HE TAKES MUCH MORE NORCO.
[2019-10-31] MEDS: HYDROcodone-ACET 5/325MG TAB PO PRN (05:14)
[2019-10-31] MEDS: SODIUM CHLOR 0.9% PF (SALINE LOCK) 10ML VIAL/SYR IV SCH ×3 (06:00→22:17)
[2019-10-31] MEDS: MEXILETINE HYDROCHLORIDE 150 MG CAP PO SCH ×3 (06:00→22:19)
[2019-10-31] MEDS: FUROSEMIDE 20 MG/2 ML VIAL IV SCH ×2 (06:30→17:27)
[2019-10-31] MEDS: InsuLIN REG 1unit/0.01ml Soln (100units/ml) SC SCH ×4 (06:33→22:20)
[2019-10-31] MEDS: ACCU-CHEK COMFORT CURVE STRIP VI SCH ×4 (06:49→22:20)
--- NOTE | 2019-10-31 06:58 | NUR ---
PAIN MED GIVEN
--- NOTE | 2019-10-31 08:00 | NUR ---
Opening Shift Note Assumed care of patient, awake and alert. No S/S of distress/SOB. Instructed on POC and to call for assist PRN, will continue to monitor for changes Q1hr and PRN. Complaining of chest pain 10/10 even thought Morphine given at 7 am. Patient agreed to take NTG SL as order for chest pain. Patient stated that couldn't sleep for all night.
[2019-10-31] MEDS: NITROGLYCERIN 0.4 MG SL TAB SL PRN ×3 (08:08→08:24)
[2019-10-31] MEDS: PROMETHAZINE HCL 25 MG/ML 1ML IV PRN (08:11)
--- NOTE | 2019-10-31 08:30 | NUR ---
Patient stated that doesn't feel hungry, kept the breakfast tray at the bedside.
--- NOTE | 2019-10-31 08:44 | NUR ---
Called Dr. Pastrana, regarding patient still complaining of chest pain after Morphine IV given and Nitro SL given 3 doses for chest pain. Received order for Start Nitroglycerine IV drip per protocol for chest pain. Will carry out and continue to monitor.
[2019-10-31] MEDS ORDERED: NITROGLYCERIN 50MG/250ML 250 ML IV ONE (08:52)
[2019-10-31] MEDS: NITROGLYCERIN 50MG/250ML 250 ML IV SCH (09:03)
--- NOTE | 2019-10-31 09:05 | NUR ---
Nitroglycerine started for chest pain.
[2019-10-31] MEDS: DOCUSATE SOD 100 MG CAP PO SCH ×2 (10:00→22:00)
[2019-10-31] MEDS: [UNRECOGNIZED DRUG - OTHER] PO SCH ×2 (10:00→22:00)
--- NOTE | 2019-10-31 10:02 | NUR ---
Patient able to take a nap, still complaining of chest pain 01/03. Mild headache, patient stated level acceptable, keep Nitroglycerine at 10 mcg/min. Patient asking for Morphine since this morning even though already given at 7 am, also asking for [place], explained that he had at 5.15 am.
[2019-10-31] MEDS: APIXABAN 5 MG TAB PO SCH ×2 (10:38→22:18)
[2019-10-31] MEDS: GABAPENTIN 300 MG CAP PO SCH ×2 (10:38→22:19)
[2019-10-31] MEDS: CLOPIDOGREL BISULFATE 75 MG TAB PO SCH (10:39)
[2019-10-31] MEDS: PANTOPRAZOLE 40 MG TAB PO SCH (10:39)
[2019-10-31] MEDS: ASPirin 81 mg TAB PO SCH (10:39)
[2019-10-31] MEDS: AMIODARONE HCL 200 MG TAB PO SCH ×2 (10:40→22:18)
--- NOTE | 2019-10-31 10:45 | NUR ---
Patient refused Coreg and Docusate.
--- NOTE | 2019-10-31 10:47 | NUR ---
Patient sitting at the edge of the bed for having soup and taking his medications.
--- NOTE | 2019-10-31 11:05 | NUR ---
IV insertion IV access obtained, via clean sterile technique by inserting 22 gauge catheter at right forearm after 1 attempt(s). IV secured properly. No trauma to site. Patient tolerated procedure well. Removed IV from right hand.
--- NOTE | 2019-10-31 11:55 | NUR ---
SBP 75-85 mmHg after Morphine given for chest pain. Decreased Nitroglycerine (cannot stop at this time due to patient said still having chest pain, Morphine last for 20 minutes), Will continue to monitor and care.
--- NOTE | 2019-10-31 12:25 | NUR ---
Dr. Luciano at the bedside, seen and examined patient at this time, received new order, plan of care discussed with patient and patient agreed with the pain. Due to Low blood pressure, cannot increase the morphine dose per patient requested.
--- NOTE | 2019-10-31 14:18 | NUR ---
Patient still sleeping, SBP 90-100 mmHg. Continue Dobutamine 5 mcg/kg/min, Nitroglycerine iv 5 mcg/min. Will continue to monitor and care.
--- NOTE | 2019-10-31 15:51 | NUR ---
Patient able to rest, no complaining of chest pain noted. Continue Nitroglycerine iv for chest pain and Dobutamine iv 5 mcg/kg/min, SBP 90-100 mmHg.
[2019-10-31] MEDS: TAMSULOSIN HYDROCHLORIDE 0.4 MG CAP PO SCH (17:23)
--- NOTE | 2019-10-31 18:16 | NUR ---
Patient was sleeping since this afternoon. Patient woke up for urinating after Lasix given, then asking for Morphine telling me that chest pain 02/03. Morphine given, BP 105/62mmHg then patient went back to sleep. Will continue to monitor and care.
--- NOTE | 2019-10-31 18:25 | NUR ---
RT NOTE PT WAS SEEN BY RT FOR HHN TX. PT TOLERATES WELL VIA MASK. NO ADVERSE REACTION NOTED. CONT ORDERED Addendum: 10/31/19 at 1829 by Jody Santoro RT Amended: Links added.
--- NOTE | 2019-10-31 18:39 | NUR ---
Dinner tray provided, patient sitting at the edge of the bed, no N/V noted.
--- NOTE | 2019-10-31 19:10 | NUR ---
OPENING SHIFT RECEIVED REPORT FROM DAY SHIFT RN. ASSUMED CARE OF PATIENT. PATIENT IN BED WATCHING TV WITH NO SIGNS OR SYMPTOMS OF SOB, PAIN OR DISTRESS. CURRENTLY ON 2L 02 NASAL CANNULA, 02 SAT - 96%. LEFT FOREARM IV AND RIGHT FOREARM IV - CLEAN/DRY/INTACT. UPDATED PATIENT ON PLAN OF CARE. REPOSITIONED FOR COMFORT. BED IN LOWEST POSITION, SIDE RAILS UP X2. CALL LIGHT WITHIN REACH. DOBUTAMINE - 5MCG/KG/MIN SET RATE NITROGLYCERIN - 5MCG/MIN WILL CONTINUE TO MONITOR.
[2019-10-31] MEDS: CARVEDILOL 3.125 MG TAB PO SCH (22:00)
[2019-11-01] VITALS (85 sets, daily range): BP systolic 75–110; BP diastolic 42–87
--- NOTE | 2019-11-01 | NUR ---
RT NOTE PT WAS SEEN BY RT FOR HHN TX. PT TOLERATES WELL VIA MASK. NO ADVERSE REACTION NOTED. CONT ORDERED Addendum: 11/01/19 at 0057 by Jody Santoro RT Amended: Links added.
[2019-11-01] MEDS: HYDROcodone-ACET 5/325MG TAB PO PRN ×2 (01:57→11:35)
--- NOTE | 2019-11-01 01:57 | NUR ---
PAIN: Pt c/o pain at level 8/10. Pt requesting medication for pain. Pt medicated w/ [place] 5/325mg PO as per order. To continue to monitor pt.
[2019-11-01] MEDS: DOBUTamine 1000MCG/ML 250 ML IV SCH ×3 (02:10→18:02)
--- NOTE | 2019-11-01 05:45 | NUR ---
Patient refused bed bath, gown change and linen change at this time.
[2019-11-01] MEDS: FUROSEMIDE 20 MG/2 ML VIAL IV SCH ×2 (06:17→17:55)
[2019-11-01] MEDS: MEXILETINE HYDROCHLORIDE 150 MG CAP PO SCH ×3 (06:17→22:30)
[2019-11-01] MEDS: SODIUM CHLOR 0.9% PF (SALINE LOCK) 10ML VIAL/SYR IV SCH ×3 (06:17→22:07)
[2019-11-01] MEDS: ALBUTEROL SULF 2.5 MG/0.5ML(0.5%) NEB SOLN NEB SCH ×4 (06:47→23:59)
[2019-11-01] MEDS: IPRATROPIUM BROM 0.5 MG/2.5ML INH SOL NEB SCH ×4 (06:47→23:59)
[2019-11-01] MEDS: ACCU-CHEK COMFORT CURVE STRIP VI SCH ×4 (06:49→22:00)
[2019-11-01] MEDS: InsuLIN REG 1unit/0.01ml Soln (100units/ml) SC SCH ×4 (06:49→22:00)
--- NOTE | 2019-11-01 07:13 | NUR ---
End of shift Report given to day shift RN. Care endorsed.
--- NOTE | 2019-11-01 07:15 | NUR ---
Opening Shift Note Assumed care of patient, awake and alert. No S/S of distress/SOB, on O2 NC 2 LPM, O2 saturation 98%. Patient stated that chest pain still there 01/03, continue Dobutamine iv 5 mcg/kg/min and Nitroglycerine IV 5 mcg/min. Instructed on POC and to call for assist PRN, will continue to monitor for changes Q1hr and PRN.
--- NOTE | 2019-11-01 08:10 | NUR ---
Dr. Luciano at the bedside, no new order at this time, still waiting for transfer to [place].
[2019-11-01] MEDS: MORPHINE SULF INJ 2 MG/ML SYRINGE 1ML IV PRN ×2 (08:27→18:18)
[2019-11-01] MEDS: PROMETHAZINE HCL 25 MG/ML 1ML IV PRN (08:27)
[2019-11-01] MEDS: GABAPENTIN 300 MG CAP PO SCH ×2 (09:01→22:30)
[2019-11-01] MEDS: DOCUSATE SOD 100 MG CAP PO SCH ×2 (09:01→22:00)
[2019-11-01] MEDS: ASPirin 81 mg TAB PO SCH (09:02)
[2019-11-01] MEDS: APIXABAN 5 MG TAB PO SCH ×2 (09:02→22:30)
[2019-11-01] MEDS: AMIODARONE HCL 200 MG TAB PO SCH ×2 (09:02→22:30)
[2019-11-01] MEDS: PANTOPRAZOLE 40 MG TAB PO SCH (09:02)
[2019-11-01] MEDS: CLOPIDOGREL BISULFATE 75 MG TAB PO SCH (09:02)
[2019-11-01] MEDS: CARVEDILOL 3.125 MG TAB PO SCH ×2 (09:02→22:00)
[2019-11-01] MEDS: [UNRECOGNIZED DRUG - OTHER] PO SCH ×2 (09:05→22:00)
[2019-11-01] MEDS: NITROGLYCERIN 50MG/250ML 250 ML IV SCH (09:05)
--- NOTE | 2019-11-01 11:09 | NUR ---
Est energy needs 3678-1030 kcal (16-18kcal/kg BW 113.6kg) Est protein needs 73-87g (1-1.2g/kg IBW 72.7kg) Will reassess prn. Addendum: 11/01/19 at [address] Amended: Links added.
--- NOTE | 2019-11-01 15:05 | NUR ---
Received a call back from Dr. Pastrana, reported to MD that SBP 80-90 mmHg MAP 60-70 mmHg, already stopped Nitroglycerine iv drip for chest pain, only Dobutamine iv 5 mcg/kg/min running at this time, patient still complaining of chest pain 01/03, HR 100-110 /min with PVC, no fever, on O2 NC 2LPM , O2 saturation 95%, urine output 450 since Lasix given this morning as ordered. Received orders for Toradol 30 mg IV once for pain management, and repeat Troponin I stat. Patient made aware and agreed with the plan.
[2019-11-01] MEDS ORDERED: KETOROLAC TROMETH 30 MG/ML 1ML VIAL ONE (15:14)
[2019-11-01] MEDS ORDERED: KETOROLAC TROMETH 30 MG/ML 1ML VIAL IV ONE (15:15)
[2019-11-01 15:44] LABS: Magnesium 1.8 mg/dL (1.6-2.6); Potassium 3.6 mmol/L (3.5-5.1)
[2019-11-01] MEDS ORDERED: KETOROLAC TROMETH 30 MG/ML 1ML VIAL IV PRN (16:45)
[2019-11-01] MEDS ORDERED: NAPROXEN 500 MG TAB PO PRN (16:45)
--- NOTE | 2019-11-01 16:45 | NUR ---
Informed Dr. Pastrana about the labs result, updated his vital sign and condition after given Toradol, received orders for Naproxen 250 mg PO q 6 hours and okay to restart Nitroglycerine, and Toradol PRN for pain.
[2019-11-01] MEDS ORDERED: ACETAMINOPHEN 500 MG TAB PO PRN (17:00)
--- NOTE | 2019-11-01 17:28 | NUR ---
Explained plan of care to patient, patient made aware about new orders. Patient disagreed with the plan, seems upset and doesn't want to try those medications per Dr. Pastrana ordered. Reported to Dr. Pastrana made aware.
[2019-11-01] MEDS: TAMSULOSIN HYDROCHLORIDE 0.4 MG CAP PO SCH (17:55)
--- NOTE | 2019-11-01 18:20 | NUR ---
BP 99/62 mmHg, Morphine given, will continue to monitor and care, Dinner tray provided.
--- NOTE | 2019-11-01 19:10 | NUR ---
Opening Shift Received report from day shift RN. Assumed care of patient. Patient in bed resting with no signs or symptoms of SOB, pain or distress. Currently on 2l nasal cannula, 02 sat - 98%. Right forearm IV and left forearm IV - clean/dry/intact. Repositioned for comfort. Updated plan of care. Bed in lowest position, side rails up x2, call light within reach. DOBUtamine - 5mcg/kg/min Will continue to monitor.
[2019-11-02] VITALS (29 sets, daily range): BP systolic 70–105; BP diastolic 36–73
--- NOTE | 2019-11-02 | NUR ---
PT REFUSED MED NEB TX AT THIS TIME. SPO2 98% ON 2L NC, HR 100, RR 14. PT DENIES ANY RESPIRATORY DISTRESS. NO TX INDICATED. WILL CONTINUE WITH NEXT SCHEDULED TX.
[2019-11-02] MEDS: DOBUTamine 1000MCG/ML 250 ML IV SCH ×2 (01:48→10:24)
--- NOTE | 2019-11-02 05:20 | NUR ---
Morning Care Patient refused bed bath at this time. States, " I want to have a shower instead." Clean linen left at the bed side. Will continue to monitor.
[2019-11-02] MEDS: ALBUTEROL SULF 2.5 MG/0.5ML(0.5%) NEB SOLN NEB SCH ×2 (06:03→12:07)
[2019-11-02] MEDS: IPRATROPIUM BROM 0.5 MG/2.5ML INH SOL NEB SCH ×2 (06:03→12:07)
[2019-11-02] MEDS: SODIUM CHLOR 0.9% PF (SALINE LOCK) 10ML VIAL/SYR IV SCH ×2 (06:20→14:00)
[2019-11-02] MEDS: FUROSEMIDE 20 MG/2 ML VIAL IV SCH (06:22)
[2019-11-02] MEDS: MEXILETINE HYDROCHLORIDE 150 MG CAP PO SCH ×2 (06:22→15:33)
[2019-11-02] MEDS: ACCU-CHEK COMFORT CURVE STRIP VI SCH ×2 (06:43→11:30)
[2019-11-02] MEDS: InsuLIN REG 1unit/0.01ml Soln (100units/ml) SC SCH ×2 (06:43→12:30)
--- NOTE | 2019-11-02 07:25 | NUR ---
End of shift Report given to day shift RN. Care endorsed.
--- NOTE | 2019-11-02 08:38 | NUR ---
PAIN PATIENT COMPLAINING OF CHEST PAIN 10/10 MID STERNAL. PATIENTS BLOOD PRESSURE NOTED TO BE LOW AND UNABLE TO ADMINISTER MORPHINE PATIENT REQUESTS. RN OFFERED PO NORCO AND PATIENT STATED WANTED NORCO. SEE MAR
[2019-11-02] MEDS: HYDROcodone-ACET 5/325MG TAB PO PRN (08:40)
--- NOTE | 2019-11-02 08:50 | NUR ---
SPOKE WITH PBX TO PAGED DR CARRILLO. PER PBX, WILL PLACE PAGE TO DR CARRILLO AT [phone]
--- NOTE | 2019-11-02 09:25 | NUR ---
SPOKE WITH DR CARRILLO NO NEW ORDERS
--- NOTE | 2019-11-02 09:40 | NUR ---
ALEC DRUMMOND AT BEDSIDE DISCUSSED PLAN OF CARE WITH PATIENT.
[2019-11-02] MEDS: CARVEDILOL 3.125 MG TAB PO SCH (10:00)
[2019-11-02] MEDS: [UNRECOGNIZED DRUG - OTHER] PO SCH (10:00)
--- NOTE | 2019-11-02 10:30 | NUR ---
DR CARRILLO AT BEDSIDE DISCUSSED PLAN OF CARE WITH PATIENT
[2019-11-02] MEDS: GABAPENTIN 300 MG CAP PO SCH (10:43)
[2019-11-02] MEDS: PANTOPRAZOLE 40 MG TAB PO SCH (10:43)
[2019-11-02] MEDS: DOCUSATE SOD 100 MG CAP PO SCH (10:44)
[2019-11-02] MEDS: APIXABAN 5 MG TAB PO SCH (10:44)
[2019-11-02] MEDS: ASPirin 81 mg TAB PO SCH (10:44)
[2019-11-02] MEDS: CLOPIDOGREL BISULFATE 75 MG TAB PO SCH (10:44)
[2019-11-02] MEDS: AMIODARONE HCL 200 MG TAB PO SCH (10:45)
--- NOTE | 2019-11-02 11:32 | NUR ---
PATIENT REQUESTING TO DISCUS HOSPICE OPTIONS NOTIFIED DR CARRILLO, HOSPICE EVALUATION PLACED
[2019-11-02] MEDS: MORPHINE SULF INJ 2 MG/ML SYRINGE 1ML IV PRN ×2 (12:05→15:33)
--- NOTE | 2019-11-02 12:39 | NUR ---
DR MIN (PATIENTS PRIMARY MD) AT BEDSIDE
--- NOTE | 2019-11-02 14:11 | NUR ---
assessment Patient is a 64 year old male who is alert and oriented. Patients cognitive abilities are intact. Prior to admission patient lived home alone and functioned with assistance. Per patient he will return home to his prior living arrangements post discharge. Patient informed me he has oxygen, wheelchair, fww, and a cane for home use. Patients PCP is Dr Floyd. I informed patient he has a consult for hospice. Patient informed me he has been talking to Salena with [facility] and wants them to provide service. MD order has been sent to [facility]. Per Salena at [facility] they have accepted patient for service and will set up transportation. Waiting on ETA now. I informed patient he has a right to speak to a nephrology social worker regarding all care. I informed patient he has a right to participate in any and all discharge planning. Patient has a POA and advanced directive. Patient verbalized understanding and agreed to discharge plan home on hospice. Addendum: 11/02/19 at 1414 by Alexandra IVERSON Amended: Links added.
--- NOTE | 2019-11-02 15:30 | NUR ---
PAIN PATIENT COMPLAINING OF PAIN, MEDICATED WITH MORPHINE ORDERED ON JUL.
[2019-11-02] MEDS ORDERED: RANOLAZINE ER 500 MG TAB PO ONE (16:00)
--- NOTE | 2019-11-02 16:50 | NUR ---
TRANSPORT TEAM ARRIVED IN UNIT FOR DISCHARGE HOME ON HOSPICE
--- NOTE | 2019-11-02 17:00 | NUR ---
Discharge instructions given as ordered. Encourage to follow up hospice md as instructed. All questions and concerns addressed. Patient verbalized understanding. Medication reconciliation form completed and copy given to patient. 2 IVs removed with catheter intact, pressure dressing applied. Patient taken to vehicle via gurney with all personal belongings. No distress noted at time of departure.
[2019-11-02] MEDS ORDERED: RANOLAZINE ER 500 MG TAB PO SCH (22:00)
[2019-11-03] MEDS ORDERED: FUROSEMIDE 20 MG/2 ML VIAL IV SCH (10:00)
== END 2019-11-02 17:00 | disposition hospice, home (50) | DRG 280 ==
LOC: EDBD 09:57 → ER 09:57 → CATH 1 09:58 → TELE-CENTR 09:59 → ICU CENTRL 10-30 14:49 → DOU IN ICU 10-30 15:57
PROVIDERS: ADMIT Internal Medicine; ATTEND Internal Medicine
PROC: 4A023N7 Measurement of Cardiac Sampling and Pressure, Left Heart, Percutaneous Approach (ICD-10-PCS; principal; 2019-10-29)
PROC: B2131ZZ Fluoroscopy of Multiple Coronary Artery Bypass Grafts using Low Osmolar Contrast (ICD-10-PCS; 2019-10-29)
PROC: B2111ZZ Fluoroscopy of Multiple Coronary Arteries using Low Osmolar Contrast (ICD-10-PCS; 2019-10-29)
PROC: B2181ZZ Fluoroscopy of Left Internal Mammary Bypass Graft using Low Osmolar Contrast (ICD-10-PCS; 2019-10-29)
PROC: B2151ZZ Fluoroscopy of Left Heart using Low Osmolar Contrast (ICD-10-PCS; 2019-10-29)
DX: I11.0 Hypertensive heart disease with heart failure (principal); J96.20 Acute and chronic respiratory failure, unspecified whether with hypoxia or hypercapnia; I21.A1 Myocardial infarction type 2; J91.8 Pleural effusion in other conditions classified elsewhere; F11.20 Opioid dependence, uncomplicated; I25.10 Atherosclerotic heart disease of native coronary artery without angina pectoris; I50.82 Biventricular heart failure; I25.5 Ischemic cardiomyopathy; E11.9 Type 2 diabetes mellitus without complications; J44.9 Chronic obstructive pulmonary disease, unspecified; I48.91 Unspecified atrial fibrillation; E66.9 Obesity, unspecified; G89.29 Other chronic pain; F41.9 Anxiety disorder, unspecified; E78.5 Hyperlipidemia, unspecified; F32.9 Major depressive disorder, single episode, unspecified; Z79.4 Long term (current) use of insulin; Z82.49 Family history of ischemic heart disease and other diseases of the circulatory system; Z95.5 Presence of coronary angioplasty implant and graft; Z95.810 Presence of automatic (implantable) cardiac defibrillator; Z86.73 Personal history of transient ischemic attack (TIA), and cerebral infarction without residual deficits; Z95.1 Presence of aortocoronary bypass graft; Z87.891 Personal history of nicotine dependence; Z83.3 Family history of diabetes mellitus; I50.23 Acute on chronic systolic (congestive) heart failure; Z68.31 Body mass index [BMI] 31.0-31.9, adult
CPT/HCPCS: 36415; 71045; 80048; 80053; 82550; 82962; 83036; 83735; 83880; 84132; 84484; 85025; 85610; 85730; 87081; 93005; 93459; 94640; 96374; 96375; 99152; 99291; G0378; J1815; J1885; J1956; J2250; J2405; J3490

== ENCOUNTER 2020-01-09 17:35 | Inpatient (IN) | payer MEDICARE, MEDICAID ==
[~2020-01-09] VITALS: Ht 175.3 cm; Wt 100.9 kg
[2020-01-09] MEDS ORDERED: ONDANSETRON HCL 4 MG/2 ML VIAL IV ONE (18:15)
[2020-01-09] MEDS ORDERED: ASPirin 81 mg TAB PO ONE (18:15)
[2020-01-09] MEDS ORDERED: MORPHINE SULF INJ 2 MG/ML SYRINGE 1ML IV ONE (18:15)
[2020-01-09 18:34] LABS: Basophils # (auto) 0.1 10 ^3/uL (0-0.2); Basophils % (auto) 0.9 % (0.0-2.0); Eosinophils # (auto) 0 10 ^3/uL (0-0.8); Eosinophils % (auto) 0.1 % (0.0-7.0); Hematocrit 30.3 % (41.0-53.0); Lymphocytes # (auto) 0.6 10 ^3/uL (0.4-5.4); Mean Corpuscular Hemoglobin 29.1 pg (28.0-32.0); Mean Corpuscular Volume 88.2 fL (80.0-100.0); Monocytes # (auto) 0.5 10 ^3/uL (0-1.3); Monocytes % (auto) 8.4 % (0.0-12.0); Neutrophils # (auto) 4.9 10 ^3/uL (1.6-8.6); Neutrophils % (auto) 80.6 % (37.0-80.0); Nucleated Red Blood Cells % 0.3 %; Platelet Count (auto) 205 10^3/uL (140-450); Red Blood Cells 3.43 10^6/uL (4.5-5.90); White Blood Cell 6.1 10^3/uL (4.4-10.8)
[2020-01-09 18:46] LABS: INR 1.21 (0.9-1.15); Partial Thromboplastin Time 27.2 sec (23.0-31.2)
[2020-01-09 19:02] LABS: Albumin 2.9 g/dL (3.4-5.0); Anion Gap 9 (5-15); Blood Urea Nitrogen 13 mg/dL (7-18); Calcium 7.8 mg/dL (8.5-10.1); Carbon Dioxide 21 mmol/L (21-32); Chloride 112 mmol/L (98-107); Glucose 182 mg/dL (74-106); Potassium 3.7 mmol/L (3.5-5.1); Sodium 142 mmol/L (136-145)
[2020-01-09 19:04] LABS: Alanine Aminotransferase 16 U/L (16-61); Aspartate Aminotransferase 25 U/L (15-37); BUN/Creatinine Ratio 19.1; GFR African American 150 mL/min; GFR Non-African American 124 mL/min
[2020-01-09 19:13] LABS: Alkaline Phosphatase 68 U/L (45-117); Total Protein 6.5 g/dL (6.4-8.2)
[2020-01-09] MEDS ORDERED: DOCUSATE SOD 100 MG CAP PO PRN (20:45)
[2020-01-09] MEDS ORDERED: ACETAMINOPHEN 500 MG TAB PO PRN (20:45)
[2020-01-09] MEDS ORDERED: DEXTROSE (50%) 50ML SYRG IV PRN (20:45)
[2020-01-09] MEDS ORDERED: ALBUTEROL SULF 2.5 MG/0.5ML(0.5%) NEB SOLN NEB PRN (20:45)
[2020-01-09] MEDS ORDERED: IPRATROPIUM BROM 0.5 MG/2.5ML INH SOL NEB PRN (20:45)
[2020-01-09] MEDS ORDERED: ACETAMINOPHEN 325 MG TAB PO PRN (20:45)
[2020-01-09] MEDS: NITROGLYCERIN 0.4 MG SL TAB SL PRN (21:42)
[2020-01-09] MEDS: ONDANSETRON HCL 4 MG/2 ML VIAL IV PRN (21:43)
[2020-01-09] MEDS: MORPHINE SULF INJ 2 MG/ML SYRINGE 1ML IV PRN (21:43)
[2020-01-09] MEDS ORDERED: ALBUTEROL SULF HFA 90MCG INH 200DOSE IN SCH (22:00)
[2020-01-09] MEDS: DOXYCYCLINE 100 MG TAB/CAP PO SCH (22:17)
[2020-01-10] MEDS: InsuLIN REG 1unit/0.01ml Soln (100units/ml) SC SCH ×6 (00:32→21:18)
[2020-01-10] MEDS: NITROGLYCERIN 0.4 MG SL TAB SL PRN (00:33)
[2020-01-10 03:41] VITALS: BP 123/89
--- NOTE | 2020-01-10 04:00 | NUR ---
Telemetry admit from ER ARAVIND STILES admitted to Telemetry unit after no SBAR received. Patient oriented to NEMESIO DONG RN primary RN, unit, room, bed, and unit policies regarding patient care and visiting hours. Patient now on continuous telemetry monitoring, tele box #7 and telemetry reading on arrival to unit is sinus rhythm. Patient placed on bedside oxygen, weighed by bedscale and encouraged to call if they need something. All questions and concerns addressed, patient verbalized understanding.
[2020-01-10] MEDS: ACCU-CHEK COMFORT CURVE STRIP VI SCH ×6 (05:12→21:12)
[2020-01-10] MEDS: MORPHINE SULF INJ 2 MG/ML SYRINGE 1ML IV PRN ×4 (05:19→23:30)
[2020-01-10 05:23] VITALS: BP 106/71
--- NOTE | 2020-01-10 06:05 | NUR ---
RESPIRATORY NOTE POX CHECK DONE BY RT. HR 116, RR 16, SPO2 99% ON 2 L NC, BS DIMINISHED. NO SIGNS OR SYMPTOMS OF RESPIRATORY DISTRESS NOTED AT THIS TIME.
--- NOTE | 2020-01-10 06:14 | NUR ---
MRSA SWAB COLLECTED AND SENT TO LAB VIA BULLET SYSTEM
--- NOTE | 2020-01-10 07:30 | NUR ---
Opening Shift Note RECEIVED REPORT FROM NOC RN. Assumed care of patient, awake and alert. PATIENT ON OXYGEN AT 2 LPM VIA NASAL CANNULA WITH no S/S of distress/SOB or pain. BED IN LOWEST, LOCKED POSITION WITH SIDERAILS UP x2 AND CALL LIGHT WITHIN REACH. Instructed on POC and to call for assist PRN, will continue to monitor for changes Q1hr and PRN.
[2020-01-10 08:54] VITALS: BP 95/67
[2020-01-10 09:05] LABS: Basophils # (auto) 0.1 10 ^3/uL (0-0.2); Basophils % (auto) 0.8 % (0.0-2.0); Eosinophils # (auto) 0 10 ^3/uL (0-0.8); Eosinophils % (auto) 0.2 % (0.0-7.0); Hematocrit 34.6 % (41.0-53.0); Hemoglobin 11.3 g/dL (13.5-17.5); Lymphocytes # (auto) 0.9 10 ^3/uL (0.4-5.4); Lymphocytes % (auto) 11.4 % (10.0-50.0); Mean Corpuscular Hgb Conc. 32.7 g/dL (32.0-36.0); Mean Corpuscular Volume 88.6 fL (80.0-100.0); Monocytes # (auto) 0.8 10 ^3/uL (0-1.3); Monocytes % (auto) 10.8 % (0.0-12.0); Neutrophils # (auto) 5.8 10 ^3/uL (1.6-8.6); Neutrophils % (auto) 76.8 % (37.0-80.0); Nucleated Red Blood Cells % 0.1 %; Platelet Count (auto) 208 10^3/uL (140-450); White Blood Cell 7.5 10^3/uL (4.4-10.8)
[2020-01-10 09:10] LABS: Red Cell Distribution Width 22.8 % (11.8-14.3)
[2020-01-10 09:31] LABS: Calcium 8.5 mg/dL (8.5-10.1); Potassium 3.2 mmol/L (3.5-5.1)
[2020-01-10 09:34] LABS: Bilirubin, Total 1.2 mg/dL (0.2-1.0); Total Protein 6.9 g/dL (6.4-8.2)
[2020-01-10] MEDS ORDERED: ASCORBIC ACID 1,000 MG TAB PO SCH (10:00)
[2020-01-10] MEDS ORDERED: ZINC SULFATE 220mg CAP or TAB PO SCH (10:00)
[2020-01-10] MEDS: ENOXAPARIN SOD 40 MG/0.4 ML SYRINGE SC SCH (10:22)
[2020-01-10] MEDS: DOXYCYCLINE 100 MG TAB/CAP PO SCH ×2 (10:22→21:46)
--- NOTE | 2020-01-10 12:14 | NUR ---
DR. TENORIO AT BEDSIDE.
[2020-01-10 13:04] VITALS: BP 99/77
[2020-01-10] MEDS: LORazepam 0.5 MG TAB PO PRN ×2 (13:38→21:46)
[2020-01-10 17:16] VITALS: BP 102/65
--- NOTE | 2020-01-10 18:00 | NUR ---
PATIENT ADVISES HE WANTS TO WALK AROUND THE UNIT. THIS NURSE STRONGLY RECOMMENDED AGAINST THE ACTIVITY. PATIENT ADAMANT ABOUT WALKING AROUND UNIT. STATES "I'M GOING STIR CRAZY". PATIENT AMBULATED AROUND UNIT WITH N95 MASK ON.
--- NOTE | 2020-01-10 19:35 | NUR ---
OPENING SHIFT NOTE Assumed care of patient who is A&O x4. Currently on 2L NC with no s/s of distress. Denies pain at this time. PIV in right hand is intact and patent. Flushed with 10ml NS. Patient is ambulatory at baseline. POC discussed and patient verbalizes understanding. Bed is in low locked position with side rails up x2. Call light is within reach and patient encouraged to call for assistance when needed. Will continue to monitor for changes.
--- NOTE | 2020-01-10 21:18 | NUR ---
ASSESSMENT FOR PRN MED NEB TX, PT IN NO RESPIRATORY DISTRESS AT THIS TIME. MED NEB TX NOT INDICATED, PT SITTING UP IN BED. HR 77, SPO2 99% ON 2L NC, RR 17, BS DIMINISHED CLEAR. WILL CONTINUE TO MONITOR.
[2020-01-10 22:00] VITALS: BP 101/73
--- NOTE | 2020-01-10 22:10 | NUR ---
Patient requests to ambulate halls. Advised patient against it, due to Covid status, however patient is adamant. Instructed patient to wear N95 mask and offered portable O2 tank. Patient states that he can tolerate RA without difficulty. Will monitor patient closely while outside of room.
[2020-01-11] MEDS: ACCU-CHEK COMFORT CURVE STRIP VI SCH ×7 (00:15→23:55)
[2020-01-11] MEDS: InsuLIN REG 1unit/0.01ml Soln (100units/ml) SC SCH ×7 (00:19→23:55)
[2020-01-11] MEDS: LORazepam 0.5 MG TAB PO PRN ×3 (04:22→22:49)
[2020-01-11 05:00] VITALS: BP 100/74
[2020-01-11] MEDS: MORPHINE SULF INJ 2 MG/ML SYRINGE 1ML IV PRN ×3 (05:32→16:51)
--- NOTE | 2020-01-11 07:35 | NUR ---
PT ASSESSED FOR PRN HHN TX. PT IS ON 2LNC, SPO2 98%, HR 72, RR 20. NO S/S OF RESPIRATORY DISTRESS. PRN TX NOT INDICATED AT THIS TIME. WILL CONTINUE TO MONITOR.
[2020-01-11 09:00] VITALS: BP 86/56
[2020-01-11] MEDS: DOXYCYCLINE 100 MG TAB/CAP PO SCH ×2 (10:36→21:05)
[2020-01-11] MEDS: ENOXAPARIN SOD 40 MG/0.4 ML SYRINGE SC SCH (10:36)
--- NOTE | 2020-01-11 12:30 | NUR ---
REPORT GIVEN TO ANDRES MUNOZ.
--- NOTE | 2020-01-11 12:47 | NUR ---
REPORT RECEIVED REPORT FROM ANDRES NOLASCO.
[2020-01-11 13:00] VITALS: BP 120/85
[2020-01-11 13:02] VITALS: BP 96/49
--- NOTE | 2020-01-11 16:06 | NUR ---
assessment re: ss consult needs more help Patient is a 64 year old male who is alert and oriented. Prior to admission patient lived home alone and functioned with the help of his daughter and [facility]. Patients PCP is Dr Floyd. Patient has a wheelchair, oxygen, fww, and a cane for home use. I informed patient of his ss consult stating he needs more help at home. Patient informed me he needs to know from Dr Pastrana if he is able to get a heart trnsplant. Patient wants to be on the list. Patient informed me he will make his decision on going back on hospice after he speaks with Dr Pastrana. I informed patient I will follow up with him tomorrow. Patient verbalized understanding. Addendum: 01/11/20 at 1610 by Alexandra IVERSON Amended: Links added.
[2020-01-11 17:00] VITALS: BP 113/75
[2020-01-11] MEDS ORDERED: FUROSEMIDE 20 MG/2 ML VIAL IV ONE (18:15)
[2020-01-11 22:00] VITALS: BP 97/71
[2020-01-12] MEDS: MORPHINE SULF INJ 2 MG/ML SYRINGE 1ML IV PRN ×5 (02:08→21:54)
[2020-01-12] MEDS: HYDROcodone-ACET 5/325MG TAB PO PRN ×3 (02:15→20:04)
[2020-01-12] MEDS: InsuLIN REG 1unit/0.01ml Soln (100units/ml) SC SCH ×5 (04:00→20:07)
[2020-01-12] MEDS: ACCU-CHEK COMFORT CURVE STRIP VI SCH ×5 (04:00→20:05)
[2020-01-12 05:00] VITALS: BP 98/68
--- NOTE | 2020-01-12 05:46 | NUR ---
Respiratory note: Respiratory note: HR 122, RR 16, SPO2 98% ON 2 L NC, BS CLEAR/DIMINISHED. PRN MED NEB TX NOT INDICATED AT THIS TIME. NO SIGNS OR SYMPTOMS OF RESPIRATORY DISTRESS NOTED AT THIS TIME. PT INFORMED TO HIT CALL BUTTON IF FEELING SOB OR WHEEZING.
[2020-01-12 06:49] LABS: Basophils # (auto) 0 10 ^3/uL (0-0.2); Basophils % (auto) 0.8 % (0.0-2.0); Eosinophils # (auto) 0.1 10 ^3/uL (0-0.8); Eosinophils % (auto) 1.4 % (0.0-7.0); Hematocrit 35.7 % (41.0-53.0); Hemoglobin 11.5 g/dL (13.5-17.5); Lymphocytes # (auto) 1.5 10 ^3/uL (0.4-5.4); Lymphocytes % (auto) 26.2 % (10.0-50.0); Mean Corpuscular Hemoglobin 28.8 pg (28.0-32.0); Mean Corpuscular Hgb Conc. 32.1 g/dL (32.0-36.0); Mean Corpuscular Volume 89.6 fL (80.0-100.0); Monocytes # (auto) 0.6 10 ^3/uL (0-1.3); Neutrophils # (auto) 3.4 10 ^3/uL (1.6-8.6); Neutrophils % (auto) 60.6 % (37.0-80.0); Nucleated Red Blood Cells % 0.2 %; Platelet Count (auto) 229 10^3/uL (140-450); Red Blood Cells 3.99 10^6/uL (4.5-5.90); White Blood Cell 5.6 10^3/uL (4.4-10.8)
[2020-01-12 06:58] LABS: Red Cell Distribution Width 22.9 % (11.8-14.3)
[2020-01-12 07:02] LABS: Potassium 3.5 mmol/L (3.5-5.1)
[2020-01-12 07:14] LABS: BUN/Creatinine Ratio 22.5; Calcium 8.5 mg/dL (8.5-10.1)
--- NOTE | 2020-01-12 08:00 | NUR ---
RECEIVED PATIENT ALERT AND ORIENTED X2, NOT IN DISTRESS, WHEEZING LS IN BILATERAL UPPER AND LOWER LUNG LOBES, RR=18 SAT=94%, DEEP BREATHING AND COUGHING ENCOURAGED, VERBALIZED AND DEMONSTRATED WELL, DENIED CP AND SOB, PACED RHYTHM R=7O'S ON TELE MONITOR, ABDOMEN SOFT WITH ACTIVE BS, LAST BM= 01/11/20 REPORTED, SKIN IS INTACT, WARM TO TOUCH, RADIAL AND PEDAL PULSES PALPABLE, SITTING ON BED AND EATING BREAKFAST AT THIS MOMENT, BED ON LOW POSITION, RAILS UP X2, CALL LIGHT ON REACH, PENDING SS AND CARDIAC CONSULT, WILL CONTINUE MONITORING.
[2020-01-12 09:00] VITALS: BP 99/76
[2020-01-12] MEDS: FUROSEMIDE 20 MG/2 ML VIAL IV SCH (10:23)
[2020-01-12] MEDS: ENOXAPARIN SOD 40 MG/0.4 ML SYRINGE SC SCH (10:24)
[2020-01-12] MEDS: DOXYCYCLINE 100 MG TAB/CAP PO SCH ×2 (10:24→21:54)
[2020-01-12] MEDS: ONDANSETRON HCL 4 MG/2 ML VIAL IV PRN ×2 (12:12→17:52)
[2020-01-12 13:00] VITALS: BP 90/72
[2020-01-12 17:00] VITALS: BP 133/75
[2020-01-12] MEDS: CARVEDILOL 3.125 MG TAB PO SCH (17:50)
--- NOTE | 2020-01-12 19:23 | NUR ---
REPORT WAS GIVEN TO THE FAMILY AND CONSUMER SCIENCE PROFESSOR RN.
--- NOTE | 2020-01-12 19:40 | NUR ---
Opening Shift Note Assumed care of patient, awake and alert. No S/S of distress/SOB or pain. Instructed on POC and to call for assist PRN. Bed in lowest locked position, call light within reach, side rails up x2, fall precautions in place. Will continue to monitor for changes Q1hr and PRN.
[2020-01-12] MEDS: RANOLAZINE ER 500 MG TAB PO SCH (21:53)
[2020-01-12] MEDS: SACUBITRIL-VALSARTAN 24mg/26mg TAB PO SCH (21:53)
[2020-01-12 23:48] VITALS: BP 90/68
[2020-01-13] MEDS: ACCU-CHEK COMFORT CURVE STRIP VI SCH ×6 (00:07→22:06)
[2020-01-13] MEDS: InsuLIN REG 1unit/0.01ml Soln (100units/ml) SC SCH ×5 (00:09→17:00)
[2020-01-13] MEDS: MORPHINE SULF INJ 2 MG/ML SYRINGE 1ML IV PRN ×5 (02:04→22:04)
[2020-01-13] MEDS: HYDROcodone-ACET 5/325MG TAB PO PRN ×2 (05:30→14:41)
[2020-01-13 05:35] VITALS: BP 92/67
[2020-01-13 06:08] LABS: Basophils # (auto) 0.1 10 ^3/uL (0-0.2); Basophils % (auto) 0.9 % (0.0-2.0); Eosinophils # (auto) 0 10 ^3/uL (0-0.8); Eosinophils % (auto) 0.8 % (0.0-7.0); Hematocrit 32.9 % (41.0-53.0); Lymphocytes # (auto) 1.3 10 ^3/uL (0.4-5.4); Lymphocytes % (auto) 21.9 % (10.0-50.0); Mean Corpuscular Hemoglobin 29.3 pg (28.0-32.0); Mean Corpuscular Hgb Conc. 33.5 g/dL (32.0-36.0); Mean Corpuscular Volume 87.4 fL (80.0-100.0); Monocytes # (auto) 0.6 10 ^3/uL (0-1.3); Monocytes % (auto) 9.4 % (0.0-12.0); Neutrophils # (auto) 4.1 10 ^3/uL (1.6-8.6); Nucleated Red Blood Cells % 0.1 %; Platelet Count (auto) 225 10^3/uL (140-450); Red Blood Cells 3.76 10^6/uL (4.5-5.90); White Blood Cell 6.1 10^3/uL (4.4-10.8)
[2020-01-13 06:32] LABS: Red Cell Distribution Width 23.1 % (11.8-14.3)
[2020-01-13 06:33] LABS: Potassium 3.6 mmol/L (3.5-5.1)
[2020-01-13 06:41] LABS: Albumin 2.7 g/dL (3.4-5.0); BUN/Creatinine Ratio 26.4; Bilirubin, Total 1.2 mg/dL (0.2-1.0); Total Protein 6.2 g/dL (6.4-8.2)
--- NOTE | 2020-01-13 07:30 | NUR ---
Opening shift note assumed care patient AOx4 complaining of chronic pain 9/10 to the chest area. MD is aware of pain. Will medicate with Morphine 2mg IV Q4hr for pain as per MD orders. Patient updated on POC and to call for assistance as needed. Bed in low position, locked, call light within reach. Will continue care.
[2020-01-13] MEDS: CARVEDILOL 3.125 MG TAB PO SCH ×2 (08:11→18:07)
[2020-01-13] MEDS: RANOLAZINE ER 500 MG TAB PO SCH ×2 (08:11→22:06)
[2020-01-13] MEDS: ENOXAPARIN SOD 40 MG/0.4 ML SYRINGE SC SCH (08:12)
[2020-01-13] MEDS: FUROSEMIDE 20 MG/2 ML VIAL IV SCH (08:12)
[2020-01-13] MEDS: SACUBITRIL-VALSARTAN 24mg/26mg TAB PO SCH ×2 (08:12→22:06)
[2020-01-13] MEDS: DOXYCYCLINE 100 MG TAB/CAP PO SCH (08:12)
[2020-01-13 09:00] VITALS: BP 105/70
[2020-01-13] MEDS ORDERED: DEXTROSE (50%) 50ML SYRG IV PRN (10:45)
--- NOTE | 2020-01-13 12:40 | NUR ---
OFF unit Patient off unit down to Radiology. Addendum: 01/13/20 at 1615 by JANIE HALL RN RN Patient out of room ambulating in hallway.
[2020-01-13 13:00] VITALS: BP 97/68
--- NOTE | 2020-01-13 13:00 | NUR ---
Morphine and BP communication note Paged Dr. Seals regarding patients low BP of 97/68 and requesting Morphine. Per MD ok to give Morphine as long as Systolic is > 90. Will medicate patient at this time.
--- NOTE | 2020-01-13 16:15 | NUR ---
Nutrition Assessment Notes Please refer to link for full assessment notes. Est Energy needs: 9493-5182 kcals (14-18 kcal/kgBW) Est Protein needs: 109-145 gms/day (1.5-2.0 gm/kgIBW) Will continue to monitor and reassess prn. Addendum: 01/13/20 at [address] Amended: Links added.
[2020-01-13 17:00] VITALS: BP 97/70
--- NOTE | 2020-01-13 19:50 | NUR ---
Opening Shift Note Assumed care of patient, awake and alert. No S/S of distress/SOB or pain. Instructed on POC and to call for assist PRN. Bed in lowest locked position, call light within reach, side rails up x2. Will continue to monitor for changes Q1hr and PRN.
[2020-01-13] MEDS ORDERED: InsuLIN REG 1unit/0.01ml Soln (100units/ml) SC SCH (22:00)
[2020-01-13 22:18] VITALS: BP 97/55
[2020-01-14] MEDS: MORPHINE SULF INJ 2 MG/ML SYRINGE 1ML IV PRN ×4 (02:05→14:37)
[2020-01-14 05:19] VITALS: BP 100/68
[2020-01-14] MEDS: ACCU-CHEK COMFORT CURVE STRIP VI SCH ×2 (06:32→12:34)
[2020-01-14] MEDS: InsuLIN REG 1unit/0.01ml Soln (100units/ml) SC SCH ×2 (06:32→12:38)
[2020-01-14 07:00] LABS: Basophils # (auto) 0 10 ^3/uL (0-0.2); Basophils % (auto) 0.9 % (0.0-2.0); Eosinophils # (auto) 0.1 10 ^3/uL (0-0.8); Eosinophils % (auto) 1.9 % (0.0-7.0); Hematocrit 36.9 % (41.0-53.0); Hemoglobin 12.2 g/dL (13.5-17.5); Lymphocytes # (auto) 0.8 10 ^3/uL (0.4-5.4); Lymphocytes % (auto) 21.7 % (10.0-50.0); Mean Corpuscular Hgb Conc. 33.1 g/dL (32.0-36.0); Mean Corpuscular Volume 87.8 fL (80.0-100.0); Monocytes # (auto) 0.5 10 ^3/uL (0-1.3); Monocytes % (auto) 11.9 % (0.0-12.0); Neutrophils # (auto) 2.4 10 ^3/uL (1.6-8.6); Neutrophils % (auto) 63.6 % (37.0-80.0); Nucleated Red Blood Cells % 0.2 %; Platelet Count (auto) 259 10^3/uL (140-450); White Blood Cell 3.8 10^3/uL (4.4-10.8)
[2020-01-14 07:30] LABS: Potassium 3.5 mmol/L (3.5-5.1)
[2020-01-14 07:32] LABS: Red Cell Distribution Width 22.8 % (11.8-14.3)
[2020-01-14 07:50] LABS: BUN/Creatinine Ratio 20.3; Calcium 8.2 mg/dL (8.5-10.1)
[2020-01-14] MEDS: HYDROcodone-ACET 5/325MG TAB PO PRN (08:11)
[2020-01-14 09:00] VITALS: BP 92/59
[2020-01-14] MEDS: RANOLAZINE ER 500 MG TAB PO SCH (10:12)
[2020-01-14] MEDS: ENOXAPARIN SOD 40 MG/0.4 ML SYRINGE SC SCH (10:13)
[2020-01-14] MEDS: SACUBITRIL-VALSARTAN 24mg/26mg TAB PO SCH (10:16)
[2020-01-14] MEDS ORDERED: RANO500T PO (10:24)
[2020-01-14] MEDS ORDERED: DOXY-286 PO (10:28)
--- NOTE | 2020-01-14 10:30 | NUR ---
Patient brought down to filling station laborer per bed for revision of pacemaker in a stable condition. Addendum: 01/14/20 at 1740 by Edwin Rendon RN starkey patient
--- NOTE | 2020-01-14 10:45 | NUR ---
Paged Dr. Floyd as per patient's request to see him as MD is his primary MD. MD called back and was notified about patient's request and MD stated that he will seepatient later. Patient made aware of same.
[2020-01-14 11:40] VITALS: BP 97/55
--- NOTE | 2020-01-14 12:30 | NUR ---
Steffi Malhotra CLAY MIXER as patient asking to see her or Dr. Pastrana. CLAY MIXER answered page and went to see patient.
[2020-01-14] MEDS: FUROSEMIDE 20 MG/2 ML VIAL IV SCH (12:48)
[2020-01-14] MEDS: CARVEDILOL 3.125 MG TAB PO SCH (12:49)
== END 2020-01-14 17:35 | disposition home or self-care (01) | DRG 291 ==
LOC: ER 17:35 → EDBD 17:35 → EDSEX 17:35 → TELE 17:36 → TELE-EAST 01-10 04:14 → TELE-CENTR 01-11 12:57
PROVIDERS: ADMIT Hospitalist; ATTEND Internal Medicine Pulmonary Disease
PROC: 4B02XTZ Measurement of Cardiac Defibrillator, External Approach (ICD-10-PCS; principal; 2020-01-12)
PROC: 4B02XSZ Measurement of Cardiac Pacemaker, External Approach (ICD-10-PCS; 2020-01-12)
DX: I13.2 Hypertensive heart and chronic kidney disease with heart failure and with stage 5 chronic kidney disease, or end stage renal disease (principal); N18.6 End stage renal disease; J96.01 Acute respiratory failure with hypoxia; I50.43 Acute on chronic combined systolic (congestive) and diastolic (congestive) heart failure; F11.20 Opioid dependence, uncomplicated; I20.0 Unstable angina; I25.5 Ischemic cardiomyopathy; J44.9 Chronic obstructive pulmonary disease, unspecified; F41.9 Anxiety disorder, unspecified; D50.8 Other iron deficiency anemias; E66.9 Obesity, unspecified; E78.5 Hyperlipidemia, unspecified; F32.9 Major depressive disorder, single episode, unspecified; M19.90 Unspecified osteoarthritis, unspecified site; Z20.828 Contact with and (suspected) exposure to other viral communicable diseases; E87.6 Hypokalemia; I50.82 Biventricular heart failure; I48.91 Unspecified atrial fibrillation; Z86.73 Personal history of transient ischemic attack (TIA), and cerebral infarction without residual deficits; Z95.1 Presence of aortocoronary bypass graft; Z95.5 Presence of coronary angioplasty implant and graft; Z79.4 Long term (current) use of insulin; Z82.49 Family history of ischemic heart disease and other diseases of the circulatory system; Z83.3 Family history of diabetes mellitus; Z87.891 Personal history of nicotine dependence; Z88.1 Allergy status to other antibiotic agents; Z88.8 Allergy status to other drugs, medicaments and biological substances; Z79.899 Other long term (current) drug therapy; I25.2 Old myocardial infarction; Z95.810 Presence of automatic (implantable) cardiac defibrillator; Z68.35 Body mass index [BMI] 35.0-35.9, adult; E11.22 Type 2 diabetes mellitus with diabetic chronic kidney disease
CPT/HCPCS: 36415; 71045; 76700; 80048; 80053; 82728; 82962; 83036; 83615; 83735; 83880; 84443; 84484; 85025; 85610; 85730; 86141; 87081; 93005; 93306; 94760; G0378; J1815; J2405

== ENCOUNTER → 2020-02-08 | Emergency (ER) | payer MEDICARE, MEDICAID ==
[~2020-02-08] VITALS: Ht 177.8 cm; Wt 108.9 kg
[~2020-02-08] MED LIST changes: +DOXY-286 PO; +MORP30TA PO; +MORPHINE SULFATE 4 MG/ML SYR/VIAL IV ONE; +ONDANSETRON HCL 4 MG/2 ML VIAL IV ONE; +POTASSIUM EFFERVESENT TAB 25 MEQ PO ONE; +RANO500T PO
[2020-02-08 01:30] LABS: Basophils # (auto) 0 10 ^3/uL (0-0.2); Basophils % (auto) 0.3 % (0.0-2.0); Eosinophils # (auto) 0 10 ^3/uL (0-0.8); Hematocrit 34.9 % (41.0-53.0); Hemoglobin 11.4 g/dL (13.5-17.5); Lymphocytes # (auto) 0.8 10 ^3/uL (0.4-5.4); Lymphocytes % (auto) 16.3 % (10.0-50.0); Mean Corpuscular Hemoglobin 28.9 pg (28.0-32.0); Mean Corpuscular Hgb Conc. 32.7 g/dL (32.0-36.0); Mean Corpuscular Volume 88.5 fL (80.0-100.0); Monocytes # (auto) 0.4 10 ^3/uL (0-1.3); Monocytes % (auto) 8.5 % (0.0-12.0); Neutrophils # (auto) 3.7 10 ^3/uL (1.6-8.6); Neutrophils % (auto) 73.9 % (37.0-80.0); Nucleated Red Blood Cells % 0.1 %; Platelet Count (auto) 241 10^3/uL (140-450); Red Blood Cells 3.95 10^6/uL (4.5-5.90)
[2020-02-08 01:33] LABS: Red Cell Distribution Width 20.3 % (11.8-14.3)
[2020-02-08 01:43] LABS: INR 1.34 (0.9-1.15); Partial Thromboplastin Time 31.9 sec (23.0-31.2)
[2020-02-08 01:44] LABS: Alanine Aminotransferase 10 U/L (16-61); Albumin 3.4 g/dL (3.4-5.0); Anion Gap 7 (5-15); Aspartate Aminotransferase 7 U/L (15-37); BUN/Creatinine Ratio 8.7; Blood Urea Nitrogen 9 mg/dL (7-18); Calcium 8.3 mg/dL (8.5-10.1); Carbon Dioxide 31 mmol/L (21-32); Chloride 100 mmol/L (98-107); GFR African American 92 mL/min; GFR Non-African American 76 mL/min; Glucose 202 mg/dL (74-106); Potassium 3.2 mmol/L (3.5-5.1); Sodium 138 mmol/L (136-145)
[2020-02-08 01:49] LABS: Alkaline Phosphatase 61 U/L (45-117); Bilirubin, Total 0.7 mg/dL (0.2-1.0); Total Protein 6.8 g/dL (6.4-8.2)
[2020-02-08 04:00] VITALS: BP 91/61
== END | disposition home or self-care (01) ==
LOC: EDUNIT# 00:27 → EDBD 00:35 → ER 00:37
DX: R07.89 Other chest pain (principal); I42.9 Cardiomyopathy, unspecified; I50.9 Heart failure, unspecified; I11.0 Hypertensive heart disease with heart failure; I25.10 Atherosclerotic heart disease of native coronary artery without angina pectoris; E11.9 Type 2 diabetes mellitus without complications; E78.5 Hyperlipidemia, unspecified; F41.9 Anxiety disorder, unspecified; Z87.891 Personal history of nicotine dependence; Z98.61 Coronary angioplasty status
CPT/HCPCS: 36415; 71045; 80053; 83880; 84484; 85025; 85610; 85730; 93005; 96374; 96375; 99285; J2270; J2405

== ENCOUNTER 2020-02-10 14:13 | Inpatient (IN) | payer MEDICARE, MEDICAID ==
[~2020-02-10] VITALS: Ht 177.8 cm; Wt 97.8 kg
[~2020-02-10 14:13] MED LIST changes: -MORP30TA PO; -MORPHINE SULFATE 4 MG/ML SYR/VIAL IV ONE; -ONDANSETRON HCL 4 MG/2 ML VIAL IV ONE; -POTASSIUM EFFERVESENT TAB 25 MEQ PO ONE
[2020-02-10 15:27] LABS: Basophils # (auto) 0 10 ^3/uL (0-0.2); Eosinophils # (auto) 0.1 10 ^3/uL (0-0.8); Lymphocytes # (auto) 0.8 10 ^3/uL (0.4-5.4); Monocytes # (auto) 0.4 10 ^3/uL (0-1.3); Nucleated Red Blood Cells % 0.1 %; Platelet Count (auto) 238 10^3/uL (140-450)
[2020-02-10 15:30] LABS: Basophils % (auto) 0.5 % (0.0-2.0); Eosinophils % (auto) 1.7 % (0.0-7.0); Hematocrit 39.3 % (41.0-53.0); Hemoglobin 12.1 g/dL (13.5-17.5); Lymphocytes % (auto) 17.6 % (10.0-50.0); Mean Corpuscular Hemoglobin 27.5 pg (28.0-32.0); Mean Corpuscular Hgb Conc. 30.8 g/dL (32.0-36.0); Mean Corpuscular Volume 89.2 fL (80.0-100.0); Monocytes % (auto) 9.6 % (0.0-12.0); Neutrophils # (auto) 3.2 10 ^3/uL (1.6-8.6); Neutrophils % (auto) 70.6 % (37.0-80.0); Red Blood Cells 4.41 10^6/uL (4.5-5.90); White Blood Cell 4.5 10^3/uL (4.4-10.8)
[2020-02-10 15:55] LABS: Red Cell Distribution Width 20.3 % (11.8-14.3)
[2020-02-10] MEDS ORDERED: NITROGLYCERIN 0.4 MG SL TAB SL PRN (18:15)
[2020-02-10 20:11] VITALS: BP 93/63
[2020-02-10 20:15] LABS: Alanine Aminotransferase 12 U/L (16-61); Alkaline Phosphatase 60 U/L (45-117); Anion Gap 7 (5-15); Aspartate Aminotransferase 11 U/L (15-37); BUN/Creatinine Ratio 9.9; Blood Urea Nitrogen 8 mg/dL (7-18); Calcium 8.3 mg/dL (8.5-10.1); Carbon Dioxide 33 mmol/L (21-32); Chloride 102 mmol/L (98-107); GFR African American 123 mL/min; GFR Non-African American 101 mL/min; Glucose 142 mg/dL (74-106); Potassium 3.5 mmol/L (3.5-5.1); Sodium 142 mmol/L (136-145); Total Protein 6.7 g/dL (6.4-8.2)
[2020-02-10 20:16] VITALS: BP 93/63
[2020-02-10] MEDS ORDERED: CLOP75TA41 PO (21:12)
[2020-02-10] MEDS ORDERED: MORP30TA PO (21:18)
[2020-02-10] MEDS ORDERED: SODIUM CHLORIDE 0.9% 1,000 ML IV SCH (22:15)
[2020-02-10] MEDS ORDERED: DEXTROSE (50%) 50ML SYRG IV PRN (22:45)
[2020-02-10] MEDS: MORPHINE SULF INJ 2 MG/ML SYRINGE 1ML IV PRN (23:08)
[2020-02-11 05:00] VITALS: BP 98/63
[2020-02-11] MEDS ORDERED: FUROSEMIDE 40 MG/4 ML VIAL IV SCH (06:00)
[2020-02-11] MEDS: MEXILETINE HYDROCHLORIDE 150 MG CAP PO SCH ×2 (06:00→14:11)
[2020-02-11] MEDS: ACCU-CHEK COMFORT CURVE STRIP VI SCH ×4 (06:09→22:00)
[2020-02-11] MEDS: GABAPENTIN 300 MG CAP PO SCH ×2 (06:27→14:11)
[2020-02-11] MEDS: InsuLIN REG 1unit/0.01ml Soln (100units/ml) SC SCH ×4 (06:27→22:00)
[2020-02-11 08:10] LABS: INR 1.39 (0.9-1.15); Partial Thromboplastin Time 29.1 sec (23.0-31.2)
[2020-02-11 08:38] VITALS: BP 103/68
[2020-02-11] MEDS: DOCUSATE SOD 100 MG CAP PO SCH ×2 (09:46→22:00)
[2020-02-11] MEDS: AMIODARONE HCL 200 MG TAB PO SCH ×2 (09:46→22:00)
[2020-02-11] MEDS: FAMOTIDINE (10MG/ML) 2ML VL IV SCH ×2 (09:46→23:30)
[2020-02-11] MEDS: APIXABAN 5 MG TAB PO SCH ×2 (09:46→22:00)
[2020-02-11] MEDS: MAGNESIUM OXIDE 400 MG TAB PO SCH ×2 (09:47→22:00)
[2020-02-11] MEDS: CLOPIDOGREL BISULFATE 75 MG TAB PO SCH (09:47)
[2020-02-11] MEDS: RANOLAZINE ER 500 MG TAB PO SCH ×2 (09:47→22:00)
[2020-02-11] MEDS: SACUBITRIL-VALSARTAN 24mg/26mg TAB PO SCH ×2 (10:00→22:00)
[2020-02-11] MEDS: CHOLECALCIFEROL (VITD3) 2,000 UNIT CAP PO SCH (10:00)
[2020-02-11] MEDS ORDERED: CARVEDILOL 3.125 MG TAB PO SCH (10:00)
[2020-02-11] MEDS: HYDROcodone-ACET 5/325MG TAB PO PRN (12:31)
[2020-02-11 13:01] VITALS: BP 93/57
[2020-02-11 16:33] VITALS: BP 106/73
[2020-02-11 16:56] LABS: Urine Bacteria NONE SEEN /hpf (None Seen); Urine Blood Negative /uL (Negative); Urine Mucus FEW (None Seen); Urine Specific Gravity 1.025 (1.001-1.035); Urine WBC 1 /hpf (0 - 3)
[2020-02-11] MEDS: TAMSULOSIN HYDROCHLORIDE 0.4 MG CAP PO SCH (18:20)
[2020-02-11] MEDS: DOBUTamine 1000MCG/ML 250 ML IV SCH ×2 (18:22→23:35)
[2020-02-11 21:56] VITALS: BP 85/66
[2020-02-11] MEDS: NITROGLYCERIN 0.4 MG SL TAB SL PRN (22:20)
[2020-02-11] MEDS: MORPHINE SULF INJ 2 MG/ML SYRINGE 1ML IV PRN (22:45)
[2020-02-12] MEDS: MEXILETINE HYDROCHLORIDE 150 MG CAP PO SCH ×4 (00:19→21:57)
[2020-02-12] MEDS ORDERED: DOBUTamine 1000MCG/ML 250 ML IV SCH ×2 (00:45→03:30)
[2020-02-12] MEDS: DOBUTamine 1000MCG/ML 250 ML IV SCH ×3 (00:45→18:48)
[2020-02-12 05:31] VITALS: BP 107/73
[2020-02-12] MEDS: InsuLIN REG 1unit/0.01ml Soln (100units/ml) SC SCH ×4 (06:21→22:09)
[2020-02-12] MEDS: ACCU-CHEK COMFORT CURVE STRIP VI SCH ×4 (06:21→22:09)
[2020-02-12] MEDS: HYDROcodone-ACET 5/325MG TAB PO PRN (06:32)
[2020-02-12 07:01] LABS: Basophils # (auto) 0 10 ^3/uL (0-0.2); Basophils % (auto) 0.5 % (0.0-2.0); Eosinophils # (auto) 0 10 ^3/uL (0-0.8); Eosinophils % (auto) 0.8 % (0.0-7.0); Hematocrit 36.5 % (41.0-53.0); Hemoglobin 12.1 g/dL (13.5-17.5); Lymphocytes % (auto) 24.5 % (10.0-50.0); Mean Corpuscular Hemoglobin 29.2 pg (28.0-32.0); Mean Corpuscular Hgb Conc. 33.2 g/dL (32.0-36.0); Mean Corpuscular Volume 87.8 fL (80.0-100.0); Monocytes # (auto) 0.4 10 ^3/uL (0-1.3); Monocytes % (auto) 9.6 % (0.0-12.0); Neutrophils # (auto) 2.7 10 ^3/uL (1.6-8.6); Neutrophils % (auto) 64.6 % (37.0-80.0); Nucleated Red Blood Cells % 0.1 %; Platelet Count (auto) 221 10^3/uL (140-450); Red Blood Cells 4.16 10^6/uL (4.5-5.90); Red Cell Distribution Width 19.9 % (11.8-14.3); White Blood Cell 4.2 10^3/uL (4.4-10.8)
[2020-02-12 07:53] LABS: Calcium 8.5 mg/dL (8.5-10.1); Potassium 3.1 mmol/L (3.5-5.1)
[2020-02-12 07:56] LABS: BUN/Creatinine Ratio 10.3
[2020-02-12 09:00] VITALS: BP 97/67
[2020-02-12] MEDS: CHOLECALCIFEROL (VITD3) 2,000 UNIT CAP PO SCH (10:00)
[2020-02-12] MEDS: MAGNESIUM OXIDE 400 MG TAB PO SCH ×2 (10:14→21:57)
[2020-02-12] MEDS: RANOLAZINE ER 500 MG TAB PO SCH ×2 (10:14→21:56)
[2020-02-12] MEDS: SACUBITRIL-VALSARTAN 24mg/26mg TAB PO SCH ×2 (10:14→21:56)
[2020-02-12] MEDS ORDERED: MORPHINE SULF 30 mg ER tab PO PRN (10:15)
[2020-02-12] MEDS: AMIODARONE HCL 200 MG TAB PO SCH ×2 (10:15→21:56)
[2020-02-12] MEDS: DOCUSATE SOD 100 MG CAP PO SCH ×2 (10:15→21:56)
[2020-02-12] MEDS: APIXABAN 5 MG TAB PO SCH ×2 (10:15→21:56)
[2020-02-12] MEDS: FAMOTIDINE (10MG/ML) 2ML VL IV SCH ×2 (10:15→21:56)
[2020-02-12] MEDS: CLOPIDOGREL BISULFATE 75 MG TAB PO SCH (10:15)
[2020-02-12] MEDS ORDERED: POTASSIUM CHL 20 Meq TABLET PO ONE ×2 (11:00)
[2020-02-12] MEDS ORDERED: MORPHINE SULFATE 10 MG/5 ML ORAL SOLN PO PRN ×2 (11:00→22:00)
[2020-02-12 13:00] VITALS: BP 136/87
[2020-02-12] MEDS: LORazepam 0.5 MG TAB PO PRN (15:46)
[2020-02-12 17:00] VITALS: BP 103/70
[2020-02-12] MEDS: TAMSULOSIN HYDROCHLORIDE 0.4 MG CAP PO SCH (18:05)
[2020-02-12] MEDS: NITROGLYCERIN 0.4 MG SL TAB SL PRN ×2 (20:34→20:50)
[2020-02-12 21:11] VITALS: BP 97/61
[2020-02-12] MEDS: POTASSIUM CHL 20 Meq TABLET PO SCH (21:57)
[2020-02-12] MEDS: MORPHINE SULF INJ 2 MG/ML SYRINGE 1ML IV PRN (23:39)
[2020-02-13 04:37] VITALS: BP 106/74
[2020-02-13] MEDS: DOBUTamine 1000MCG/ML 250 ML IV SCH ×2 (04:38→17:43)
[2020-02-13] MEDS: MEXILETINE HYDROCHLORIDE 150 MG CAP PO SCH ×3 (06:16→22:54)
[2020-02-13] MEDS: MORPHINE SULF INJ 2 MG/ML SYRINGE 1ML IV PRN ×4 (06:17→20:42)
[2020-02-13] MEDS: ACCU-CHEK COMFORT CURVE STRIP VI SCH ×4 (06:17→23:01)
[2020-02-13] MEDS: InsuLIN REG 1unit/0.01ml Soln (100units/ml) SC SCH ×3 (06:22→22:00)
[2020-02-13 09:00] VITALS: BP 95/63
[2020-02-13] MEDS: DOCUSATE SOD 100 MG CAP PO SCH ×2 (10:25→22:53)
[2020-02-13] MEDS: FAMOTIDINE (10MG/ML) 2ML VL IV SCH ×2 (10:25→22:54)
[2020-02-13] MEDS: SACUBITRIL-VALSARTAN 24mg/26mg TAB PO SCH ×2 (10:26→22:53)
[2020-02-13] MEDS: POTASSIUM CHL 20 Meq TABLET PO SCH ×2 (10:26→22:53)
[2020-02-13] MEDS: AMIODARONE HCL 200 MG TAB PO SCH ×2 (10:26→22:54)
[2020-02-13] MEDS: APIXABAN 5 MG TAB PO SCH ×2 (10:30→22:53)
[2020-02-13] MEDS: MAGNESIUM OXIDE 400 MG TAB PO SCH ×2 (10:31→22:53)
[2020-02-13] MEDS: CHOLECALCIFEROL (VITD3) 2,000 UNIT CAP PO SCH (10:32)
[2020-02-13] MEDS: CLOPIDOGREL BISULFATE 75 MG TAB PO SCH (10:32)
[2020-02-13] MEDS: RANOLAZINE ER 500 MG TAB PO SCH ×2 (10:32→22:53)
[2020-02-13] MEDS: NITROGLYCERIN 0.4 MG SL TAB SL PRN (10:34)
[2020-02-13 10:44] LABS: Magnesium 2.1 mg/dL (1.6-2.6); Potassium 3.6 mmol/L (3.5-5.1)
[2020-02-13 12:30] VITALS: BP 118/75
[2020-02-13] MEDS ORDERED: ONDANSETRON HCL 4 MG/2 ML VIAL ONE (15:15)
[2020-02-13] MEDS: HYDROcodone-ACET 5/325MG TAB PO PRN (15:24)
[2020-02-13 16:30] VITALS: BP 103/68
[2020-02-13 21:46] VITALS: BP 110/70
[2020-02-14] MEDS: DOBUTamine 1000MCG/ML 250 ML IV SCH ×3 (01:09→15:59)
[2020-02-14] MEDS: MORPHINE SULF INJ 2 MG/ML SYRINGE 1ML IV PRN ×6 (02:05→23:08)
[2020-02-14 05:00] VITALS: BP 94/65
[2020-02-14] MEDS: MEXILETINE HYDROCHLORIDE 150 MG CAP PO SCH ×3 (06:23→21:52)
[2020-02-14] MEDS: ACCU-CHEK COMFORT CURVE STRIP VI SCH ×4 (06:29→21:53)
[2020-02-14] MEDS: InsuLIN REG 1unit/0.01ml Soln (100units/ml) SC SCH ×4 (06:30→21:53)
[2020-02-14 09:00] VITALS: BP 94/63
[2020-02-14] MEDS: FAMOTIDINE (10MG/ML) 2ML VL IV SCH ×2 (10:14→21:53)
[2020-02-14] MEDS: DOCUSATE SOD 100 MG CAP PO SCH ×2 (10:14→21:52)
[2020-02-14] MEDS: APIXABAN 5 MG TAB PO SCH ×2 (10:15→21:53)
[2020-02-14] MEDS: MAGNESIUM OXIDE 400 MG TAB PO SCH ×2 (10:15→21:52)
[2020-02-14] MEDS: POTASSIUM CHL 20 Meq TABLET PO SCH ×2 (10:15→21:53)
[2020-02-14] MEDS: SACUBITRIL-VALSARTAN 24mg/26mg TAB PO SCH ×2 (10:15→21:53)
[2020-02-14] MEDS: CLOPIDOGREL BISULFATE 75 MG TAB PO SCH (10:15)
[2020-02-14] MEDS: AMIODARONE HCL 200 MG TAB PO SCH ×2 (10:15→21:52)
[2020-02-14] MEDS: RANOLAZINE ER 500 MG TAB PO SCH ×2 (10:16→21:52)
[2020-02-14 13:00] VITALS: BP 93/64
[2020-02-14 17:00] VITALS: BP 85/57
[2020-02-14] MEDS: TAMSULOSIN HYDROCHLORIDE 0.4 MG CAP PO SCH ×2 (17:24→19:35)
[2020-02-14] MEDS: ONDANSETRON ODT 4 MG TAB PO PRN (19:03)
[2020-02-14] MEDS: CHOLECALCIFEROL (VITD3) 2,000 UNIT CAP PO SCH (19:35)
[2020-02-14 22:00] VITALS: BP 100/68
[2020-02-15] MEDS: DOBUTamine 1000MCG/ML 250 ML IV SCH ×3 (00:22→22:01)
[2020-02-15] MEDS: MORPHINE SULF INJ 2 MG/ML SYRINGE 1ML IV PRN ×5 (03:49→21:47)
[2020-02-15 05:00] VITALS: BP 100/59
[2020-02-15] MEDS: MEXILETINE HYDROCHLORIDE 150 MG CAP PO SCH ×3 (06:50→22:24)
[2020-02-15] MEDS: ACCU-CHEK COMFORT CURVE STRIP VI SCH ×4 (06:50→22:26)
[2020-02-15] MEDS: InsuLIN REG 1unit/0.01ml Soln (100units/ml) SC SCH ×4 (06:50→22:00)
[2020-02-15 08:00] VITALS: BP 101/68
[2020-02-15] MEDS: FAMOTIDINE (10MG/ML) 2ML VL IV SCH ×2 (09:03→21:47)
[2020-02-15] MEDS: AMIODARONE HCL 200 MG TAB PO SCH ×2 (09:03→22:24)
[2020-02-15] MEDS: DOCUSATE SOD 100 MG CAP PO SCH ×2 (09:03→22:23)
[2020-02-15] MEDS: APIXABAN 5 MG TAB PO SCH ×2 (09:03→22:24)
[2020-02-15] MEDS: SACUBITRIL-VALSARTAN 24mg/26mg TAB PO SCH ×2 (09:03→22:05)
[2020-02-15] MEDS: POTASSIUM CHL 20 Meq TABLET PO SCH ×2 (09:03→22:24)
[2020-02-15] MEDS: MAGNESIUM OXIDE 400 MG TAB PO SCH ×2 (09:04→22:05)
[2020-02-15] MEDS: CLOPIDOGREL BISULFATE 75 MG TAB PO SCH (09:04)
[2020-02-15] MEDS: ONDANSETRON ODT 4 MG TAB PO PRN ×2 (09:04→11:02)
[2020-02-15] MEDS: RANOLAZINE ER 500 MG TAB PO SCH ×2 (09:04→22:25)
[2020-02-15] MEDS: CHOLECALCIFEROL (VITD3) 1,000UNIT=25mCg TAB PO SCH (10:00)
[2020-02-15 12:00] VITALS: BP 106/70
[2020-02-15 17:00] VITALS: BP 89/60
[2020-02-15] MEDS: TAMSULOSIN HYDROCHLORIDE 0.4 MG CAP PO SCH (18:55)
[2020-02-15 22:00] VITALS: BP 101/71
[2020-02-16] MEDS: MORPHINE SULF INJ 2 MG/ML SYRINGE 1ML IV PRN ×3 (03:49→12:48)
[2020-02-16 05:00] VITALS: BP 104/72
[2020-02-16] MEDS: ACCU-CHEK COMFORT CURVE STRIP VI SCH ×4 (05:13→22:00)
[2020-02-16] MEDS: DOBUTamine 1000MCG/ML 250 ML IV SCH ×3 (05:13→17:33)
[2020-02-16] MEDS: InsuLIN REG 1unit/0.01ml Soln (100units/ml) SC SCH ×4 (05:19→22:50)
[2020-02-16] MEDS: MEXILETINE HYDROCHLORIDE 150 MG CAP PO SCH ×3 (05:40→22:53)
[2020-02-16] MEDS: LORazepam 0.5 MG TAB PO PRN ×2 (05:41→13:48)
[2020-02-16 06:33] LABS: Basophils # (auto) 0 10 ^3/uL (0-0.2); Basophils % (auto) 0.7 % (0.0-2.0); Eosinophils # (auto) 0.1 10 ^3/uL (0-0.8); Eosinophils % (auto) 1.6 % (0.0-7.0); Hematocrit 37.8 % (41.0-53.0); Hemoglobin 12.4 g/dL (13.5-17.5); Lymphocytes # (auto) 0.8 10 ^3/uL (0.4-5.4); Lymphocytes % (auto) 16.6 % (10.0-50.0); Mean Corpuscular Hemoglobin 29.6 pg (28.0-32.0); Mean Corpuscular Hgb Conc. 32.9 g/dL (32.0-36.0); Monocytes # (auto) 0.5 10 ^3/uL (0-1.3); Monocytes % (auto) 9.8 % (0.0-12.0); Neutrophils # (auto) 3.3 10 ^3/uL (1.6-8.6); Neutrophils % (auto) 71.3 % (37.0-80.0); Nucleated Red Blood Cells % 0.1 %; Platelet Count (auto) 198 10^3/uL (140-450); Red Cell Distribution Width 19.5 % (11.8-14.3); White Blood Cell 4.7 10^3/uL (4.4-10.8)
[2020-02-16 06:53] LABS: Calcium 8.9 mg/dL (8.5-10.1); Magnesium 2.1 mg/dL (1.6-2.6); Potassium 4.4 mmol/L (3.5-5.1)
[2020-02-16 06:55] LABS: BUN/Creatinine Ratio 7.7
[2020-02-16 09:00] VITALS: BP 107/79
[2020-02-16] MEDS: MAGNESIUM OXIDE 400 MG TAB PO SCH ×2 (09:06→22:54)
[2020-02-16] MEDS: SACUBITRIL-VALSARTAN 24mg/26mg TAB PO SCH ×2 (09:06→22:53)
[2020-02-16] MEDS: AMIODARONE HCL 200 MG TAB PO SCH ×2 (09:06→22:54)
[2020-02-16] MEDS: CHOLECALCIFEROL (VITD3) 1,000UNIT=25mCg TAB PO SCH (09:06)
[2020-02-16] MEDS: RANOLAZINE ER 500 MG TAB PO SCH ×2 (09:06→22:53)
[2020-02-16] MEDS: FAMOTIDINE (10MG/ML) 2ML VL IV SCH ×2 (09:07→22:51)
[2020-02-16] MEDS: APIXABAN 5 MG TAB PO SCH ×2 (09:07→22:53)
[2020-02-16] MEDS: CLOPIDOGREL BISULFATE 75 MG TAB PO SCH (09:07)
[2020-02-16] MEDS: DOCUSATE SOD 100 MG CAP PO SCH ×2 (09:07→22:54)
[2020-02-16] MEDS: POTASSIUM CHL 20 Meq TABLET PO SCH (09:07)
[2020-02-16 13:03] VITALS: BP 96/70
[2020-02-16 16:38] VITALS: BP 98/48
[2020-02-16] MEDS: TAMSULOSIN HYDROCHLORIDE 0.4 MG CAP PO SCH (17:11)
[2020-02-16] MEDS: HYDROcodone-ACET 5/325MG TAB PO PRN (17:13)
[2020-02-16] MEDS: ONDANSETRON ODT 4 MG TAB PO PRN (20:19)
[2020-02-16 22:00] VITALS: BP 94/64
[2020-02-16] MEDS ORDERED: MORPHINE SULFATE 10 MG/5 ML ORAL SOLN PO PRN (23:15)
[2020-02-17] MEDS: DOBUTamine 1000MCG/ML 250 ML IV SCH ×2 (04:52→17:14)
[2020-02-17 05:00] VITALS: BP 92/52
[2020-02-17] MEDS: MEXILETINE HYDROCHLORIDE 150 MG CAP PO SCH ×3 (06:00→21:46)
[2020-02-17] MEDS: ACCU-CHEK COMFORT CURVE STRIP VI SCH ×4 (06:52→21:47)
[2020-02-17] MEDS: InsuLIN REG 1unit/0.01ml Soln (100units/ml) SC SCH ×4 (06:54→22:03)
[2020-02-17] MEDS: HYDROcodone-ACET 5/325MG TAB PO PRN ×2 (08:18→17:52)
[2020-02-17 09:00] VITALS: BP 87/59
[2020-02-17] MEDS: FAMOTIDINE (10MG/ML) 2ML VL IV SCH ×2 (09:40→21:45)
[2020-02-17] MEDS: CHOLECALCIFEROL (VITD3) 1,000UNIT=25mCg TAB PO SCH (09:41)
[2020-02-17] MEDS: SACUBITRIL-VALSARTAN 24mg/26mg TAB PO SCH ×2 (09:41→21:47)
[2020-02-17] MEDS: DOCUSATE SOD 100 MG CAP PO SCH ×2 (09:41→21:45)
[2020-02-17] MEDS: AMIODARONE HCL 200 MG TAB PO SCH ×2 (09:41→21:46)
[2020-02-17] MEDS: MAGNESIUM OXIDE 400 MG TAB PO SCH ×2 (09:41→21:47)
[2020-02-17] MEDS: CLOPIDOGREL BISULFATE 75 MG TAB PO SCH (09:42)
[2020-02-17] MEDS: APIXABAN 5 MG TAB PO SCH ×2 (09:42→21:45)
[2020-02-17] MEDS: RANOLAZINE ER 500 MG TAB PO SCH ×2 (09:42→21:46)
[2020-02-17] MEDS: MORPHINE SULFATE 10 MG/5 ML ORAL SOLN PO PRN ×2 (11:21→21:48)
[2020-02-17 12:53] VITALS: BP 103/71
[2020-02-17 17:00] VITALS: BP 98/63
[2020-02-17] MEDS: TAMSULOSIN HYDROCHLORIDE 0.4 MG CAP PO SCH (17:15)
[2020-02-17 21:24] VITALS: BP 95/63
[2020-02-18] MEDS: DOBUTamine 1000MCG/ML 250 ML IV SCH ×2 (01:40→12:03)
[2020-02-18 05:30] VITALS: BP 87/53
[2020-02-18] MEDS: ACCU-CHEK COMFORT CURVE STRIP VI SCH ×4 (06:00→21:57)
[2020-02-18] MEDS: MEXILETINE HYDROCHLORIDE 150 MG CAP PO SCH ×3 (06:25→21:57)
[2020-02-18] MEDS: InsuLIN REG 1unit/0.01ml Soln (100units/ml) SC SCH ×4 (06:26→22:00)
[2020-02-18 08:58] LABS: Potassium 4.1 mmol/L (3.5-5.1)
[2020-02-18 09:00] VITALS: BP 93/66
[2020-02-18] MEDS: APIXABAN 5 MG TAB PO SCH ×2 (09:00→21:56)
[2020-02-18] MEDS: CLOPIDOGREL BISULFATE 75 MG TAB PO SCH (09:00)
[2020-02-18] MEDS: AMIODARONE HCL 200 MG TAB PO SCH ×2 (09:00→21:56)
[2020-02-18] MEDS: RANOLAZINE ER 500 MG TAB PO SCH ×2 (09:01→21:57)
[2020-02-18] MEDS: SACUBITRIL-VALSARTAN 24mg/26mg TAB PO SCH ×2 (09:01→21:56)
[2020-02-18] MEDS: CHOLECALCIFEROL (VITD3) 1,000UNIT=25mCg TAB PO SCH (09:01)
[2020-02-18] MEDS: FAMOTIDINE (10MG/ML) 2ML VL IV SCH ×2 (09:01→21:56)
[2020-02-18] MEDS: MAGNESIUM OXIDE 400 MG TAB PO SCH ×2 (09:01→21:56)
[2020-02-18] MEDS: DOCUSATE SOD 100 MG CAP PO SCH ×2 (09:01→21:56)
[2020-02-18 09:02] LABS: BUN/Creatinine Ratio 12.3; Calcium 8.5 mg/dL (8.5-10.1)
[2020-02-18] MEDS: MORPHINE SULFATE 10 MG/5 ML ORAL SOLN PO PRN ×2 (09:02→22:20)
[2020-02-18] MEDS: HYDROcodone-ACET 5/325MG TAB PO PRN (12:04)
[2020-02-18 13:00] VITALS: BP 95/64
[2020-02-18 14:25] VITALS: BP 93/66
[2020-02-18 17:00] VITALS: BP 94/59
[2020-02-18] MEDS: TAMSULOSIN HYDROCHLORIDE 0.4 MG CAP PO SCH (18:00)
[2020-02-18 22:00] VITALS: BP 94/67
[2020-02-19] MEDS: LORazepam 0.5 MG TAB PO PRN (01:31)
[2020-02-19 05:00] VITALS: BP 97/70
[2020-02-19] MEDS: MEXILETINE HYDROCHLORIDE 150 MG CAP PO SCH (06:00)
[2020-02-19] MEDS: InsuLIN REG 1unit/0.01ml Soln (100units/ml) SC SCH ×2 (06:10→17:53)
[2020-02-19] MEDS: ACCU-CHEK COMFORT CURVE STRIP VI SCH ×2 (06:10→17:52)
[2020-02-19 09:00] VITALS: BP_SYST 65; BP_SYST 95; BP_DIAS 66
[2020-02-19] MEDS: MAGNESIUM OXIDE 400 MG TAB PO SCH (10:47)
[2020-02-19] MEDS: SACUBITRIL-VALSARTAN 24mg/26mg TAB PO SCH (10:47)
[2020-02-19] MEDS: FAMOTIDINE (10MG/ML) 2ML VL IV SCH (10:47)
[2020-02-19] MEDS: CLOPIDOGREL BISULFATE 75 MG TAB PO SCH (10:48)
[2020-02-19] MEDS: APIXABAN 5 MG TAB PO SCH (10:48)
[2020-02-19] MEDS: AMIODARONE HCL 200 MG TAB PO SCH (10:48)
[2020-02-19] MEDS: DOCUSATE SOD 100 MG CAP PO SCH (10:48)
[2020-02-19] MEDS: RANOLAZINE ER 500 MG TAB PO SCH (10:48)
[2020-02-19] MEDS: CHOLECALCIFEROL (VITD3) 1,000UNIT=25mCg TAB PO SCH (10:48)
[2020-02-19] MEDS: MORPHINE SULFATE 10 MG/5 ML ORAL SOLN PO PRN (12:03)
[2020-02-19 13:00] VITALS: BP 102/66
[2020-02-19] MEDS: HYDROcodone-ACET 5/325MG TAB PO PRN (16:52)
[2020-02-19 17:00] VITALS: BP 95/61
[2020-02-19] MEDS: TAMSULOSIN HYDROCHLORIDE 0.4 MG CAP PO SCH (17:52)
== END 2020-02-19 18:45 | DRG 292 ==
LOC: ER 14:13 → EDBD 14:13 → TELE 14:14 → TELE-CENTR 20:12
PROVIDERS: ADMIT Hospitalist; ATTEND Internal Medicine
PROC: 4B02XTZ Measurement of Cardiac Defibrillator, External Approach (ICD-10-PCS; principal; 2020-02-12)
DX: I11.0 Hypertensive heart disease with heart failure (principal); I48.19 Other persistent atrial fibrillation; E44.1 Mild protein-calorie malnutrition; F11.20 Opioid dependence, uncomplicated; I25.5 Ischemic cardiomyopathy; I50.43 Acute on chronic combined systolic (congestive) and diastolic (congestive) heart failure; R55 Syncope and collapse; D64.9 Anemia, unspecified; I95.9 Hypotension, unspecified; E11.9 Type 2 diabetes mellitus without complications; E66.9 Obesity, unspecified; E87.6 Hypokalemia; G89.29 Other chronic pain; F17.200 Nicotine dependence, unspecified, uncomplicated; J44.9 Chronic obstructive pulmonary disease, unspecified; E78.5 Hyperlipidemia, unspecified; I50.82 Biventricular heart failure; F41.9 Anxiety disorder, unspecified; F32.9 Major depressive disorder, single episode, unspecified; K21.9 Gastro-esophageal reflux disease without esophagitis; M25.511 Pain in right shoulder; Z20.828 Contact with and (suspected) exposure to other viral communicable diseases; M19.90 Unspecified osteoarthritis, unspecified site; Z79.01 Long term (current) use of anticoagulants; M54.5 Low back pain; Z79.02 Long term (current) use of antithrombotics/antiplatelets; Z79.899 Other long term (current) drug therapy; Z82.49 Family history of ischemic heart disease and other diseases of the circulatory system; Z88.0 Allergy status to penicillin; Z83.3 Family history of diabetes mellitus; Z95.5 Presence of coronary angioplasty implant and graft; Z79.4 Long term (current) use of insulin; Z95.1 Presence of aortocoronary bypass graft; Z86.73 Personal history of transient ischemic attack (TIA), and cerebral infarction without residual deficits; Z95.810 Presence of automatic (implantable) cardiac defibrillator; Z88.8 Allergy status to other drugs, medicaments and biological substances; Z88.1 Allergy status to other antibiotic agents; Z68.29 Body mass index [BMI] 29.0-29.9, adult
CPT/HCPCS: 36415; 70450; 71045; 72100; 73030; 73610; 80048; 80053; 80061; 81001; 82962; 83735; 83880; 84132; 84484; 85025; 85610; 85730; 87081; 87426; 93005; 93886; 96361; 96365; G0378; J1815; J2405; J3490; Q0162

== ENCOUNTER 2020-03-24 17:13 | Emergency (ER) | payer MEDICARE, MEDICAID ==
[~2020-03-24] VITALS: Ht 177.8 cm; Wt 113.4 kg
[~2020-03-24 17:13] MED LIST changes: -DOCU-94 PO; -DOXY-286 PO; -FURO1TAB31 PO; -MEX150C PO; -MORP15TA PO; +MORP30TA PO
[2020-03-24 19:02] LABS: Basophils # (auto) 0 10 ^3/uL (0-0.2); Basophils % (auto) 0.4 % (0.0-2.0); Eosinophils # (auto) 0.1 10 ^3/uL (0-0.8); Eosinophils % (auto) 1.9 % (0.0-7.0); Hematocrit 33.5 % (41.0-53.0); Hemoglobin 11.2 g/dL (13.5-17.5); Lymphocytes # (auto) 0.8 10 ^3/uL (0.4-5.4); Lymphocytes % (auto) 19.3 % (10.0-50.0); Mean Corpuscular Hemoglobin 29.5 pg (28.0-32.0); Mean Corpuscular Hgb Conc. 33.3 g/dL (32.0-36.0); Mean Corpuscular Volume 88.5 fL (80.0-100.0); Monocytes # (auto) 0.4 10 ^3/uL (0-1.3); Monocytes % (auto) 9.8 % (0.0-12.0); Neutrophils % (auto) 68.6 % (37.0-80.0); Nucleated Red Blood Cells % 0.1 %; Platelet Count (auto) 171 10^3/uL (140-450); Red Blood Cells 3.78 10^6/uL (4.5-5.90); Red Cell Distribution Width 17.2 % (11.8-14.3); White Blood Cell 4.3 10^3/uL (4.4-10.8)
[2020-03-24 19:12] LABS: INR 1.18 (0.9-1.15); Partial Thromboplastin Time 29.9 sec (23.0-31.2)
[2020-03-24 19:19] LABS: Albumin 3.4 g/dL (3.4-5.0); Anion Gap 5 (5-15); Blood Urea Nitrogen 9 mg/dL (7-18); Calcium 8.2 mg/dL (8.5-10.1); Carbon Dioxide 27 mmol/L (21-32); Chloride 108 mmol/L (98-107); Glucose 162 mg/dL (74-106); Potassium 3.4 mmol/L (3.5-5.1); Sodium 140 mmol/L (136-145)
[2020-03-24 19:25] LABS: Alanine Aminotransferase 10 U/L (16-61); Alkaline Phosphatase 76 U/L (45-117); Aspartate Aminotransferase 7 U/L (15-37); BUN/Creatinine Ratio 9.9; Bilirubin, Total 0.8 mg/dL (0.2-1.0); GFR African American 107 mL/min; GFR Non-African American 88 mL/min; Total Protein 6.8 g/dL (6.4-8.2)
[2020-03-24] MEDS ORDERED: CLINDAMYCIN 600MG IV 50 ML IV ONE (21:00)
[2020-03-24] MEDS ORDERED: BACITRACIN TOP OINT 1 UD PKG TOP ONE (21:00)
[2020-03-24 22:17] VITALS: BP 109/70
== END 2020-03-24 22:29 | disposition home or self-care (01) ==
LOC: ER 17:13 → EDBD 17:13 → ER 22:29
DX: S01.112A Laceration without foreign body of left eyelid and periocular area, initial encounter (principal); R90.82 White matter disease, unspecified; I48.91 Unspecified atrial fibrillation; M47.812 Spondylosis without myelopathy or radiculopathy, cervical region; M25.532 Pain in left wrist; I51.7 Cardiomegaly; J90 Pleural effusion, not elsewhere classified; R51.9 Headache, unspecified; W01.0XXA Fall on same level from slipping, tripping and stumbling without subsequent striking against object, initial encounter; Y93.89 Activity, other specified; Y92.89 Other specified places as the place of occurrence of the external cause; Y99.8 Other external cause status; Z95.810 Presence of automatic (implantable) cardiac defibrillator
CPT/HCPCS: 12013; 36415; 70450; 70486; 71045; 72125; 73110; 73552; 80053; 84484; 85025; 85610; 85730; 93005; 96365; 99285; J3490